=== PATIENT | female | born 1945 | race Caucasian/White ===

== ENCOUNTER 2021-02-02 17:34 | Outpatient (CLI) | payer MEDICARE, SELFPAY | END 2021-02-02 17:35 | disposition home or self-care (01) | LOC: ANHCOVIDVC 17:34 | PROVIDERS: PCP Internal Medicine | DX: Z23 Encounter for immunization (principal) | CPT/HCPCS: 0001A; 91300 ==

== ENCOUNTER 2021-02-23 17:44 | Outpatient (CLI) | payer MEDICARE, SELFPAY | END 2021-02-23 17:45 | disposition home or self-care (01) | LOC: ANHCOVIDVC 17:44 | PROVIDERS: PCP Internal Medicine | DX: Z23 Encounter for immunization (principal) | CPT/HCPCS: 0002A; 91300 ==

== ENCOUNTER 2024-04-15 14:19 | Inpatient (IN) | payer MEDICARE, SELFPAY ==
[2024-04-15] VITALS (14 sets, daily range): BP systolic 123–146; BP diastolic 48–88; PULSE 77–98; RESP 12–24; TEMP 36.6–36.7; O2SAT 94–100; BMI 28.7
--- NOTE | ~2024-04-15 | CT_ITS ---
EXAMINATION: CT brain wo con DATE: 04/15/2024 15:58 INDICATION: Status post fall. Head trauma. TECHNIQUE: Computed tomography (CT) of the head was performed without intravenous contrast. The dose- length product was 681.00 mGy-cm. Automated exposure control and iterative reconstruction technique w ere employed. COMPARISON: No prior studies for comparison. FINDINGS: There is a partially calcified extra-axial frontal lobe mass measuring 3.4 x 2 cm with mi ld mass effect. The mass appears to cross the midline on coronal image 23. Generalized atrophy. There are scattered mild periventricular and subcortical white matter changes, most likely related to smal l vessel ischemic disease (microangiopathy). Basilar cisterns are patent. No ventriculomegaly or midl ine shift. Mild mucosal thickening of the paranasal sinuses. Mastoids are pneumatized. IMPRESSION: 1. No acute intracranial abnormality. 2: Large extra-axial partially calcified mass centered in the left frontal lobe measuring 3.4 x 2 cm . There is extension across the midline to the right anteriorly. Although this is likely benign menin gioma, primary intracranial neoplasm and metastatic disease are not excluded. Recommend correlation w ith MRI of the brain without and with contrast for further assessment. Reviewed, dictated and finalized at location A. IMPRESSION: 1. No acute intracranial abnormality. 2: Large extra-axial partially calcified mass centered in the left frontal lob e measuring 3.4 x 2 cm. There is extension across the midline to the right ante riorly. Although this is likely benign meningioma, primary intracranial neoplas m and metastatic disease are not excluded. Recommend correlation with MRI of th e brain without and with contrast for further assessment.
--- NOTE | ~2024-04-15 | XR_ITS ---
EXAMINATION: XR barium swallow modified DATE: 04/22/2024 10:07 INDICATION: Aspiration. TECHNIQUE: The patient was given barium-containing material of multiple consistencies to swallow by t abiodun speech pathologist while I performed fluoroscopy. Fluoroscopy exposure time was 1.7 minutes. The n umber of fluoroscopy images saved to the PACS was 1. Dose-area product was 0.962 Gy-cm^2. FINDINGS: There is reduced laryngeal elevation, reduced tongue base retraction, pyriform sinus residue, and pha ryngeal wall residue. There is laryngeal penetration and aspiration of pudding. IMPRESSION: 1. Aspiration of pudding. 2. Please refer to the speech therapy report for recommendations. Reviewed, dictated and finalized at location A.
--- NOTE | ~2024-04-15 | XR_ITS ---
XR abdomen gastric tube insert INDICATION: Evaluate NG tube position. TECHNIQUE: Limited KUB perform for evaluating NG tube . COMPARISON: No prior studies for comparison. FINDINGS: NG tube tip in the stomach. Visualized bowel gas pattern is unremarkable. IMPRESSION: 1: NG tube tip in the stomach. Reviewed, dictated and finalized at location B.
--- NOTE | ~2024-04-15 | CT_ITS ---
EXAMINATION: CT cervical spine wo con DATE: 04/15/2024 16:00 INDICATION: Neck pain after fall TECHNIQUE: Computed tomography (CT) of the cervical spine was performed without intravenous contrast. The dose-length product was 316 mGy-cm. Automated exposure control and iterative reconstruction tech [employer] were employed. COMPARISON: None FINDINGS: There is levoscoliosis of the cervical spine. Vertebral body heights are maintained. There is degenerative anterolisthesis at C5-6 and C6-7. Craniovertebral junction is normal. There is multil evel uncinate and facet hypertrophy. There is levoscoliosis. No acute fracture or traumatic malalignm ent. No evidence for perched facet. Craniovertebral junction is normal. Spinous processes are unremar kable. IMPRESSION: 1. No acute abnormality of the cervical spine. 2: Severe cervical spondylosis. Reviewed, dictated and finalized at location A.
--- NOTE | ~2024-04-15 | XR_ITS ---
EXAMINATION: XR barium swallow modified DATE: 04/16/2024 10:43 INDICATION: Witnessed choking. TECHNIQUE: The patient was given barium-containing material of multiple consistencies to swallow by t abiodun speech pathologist while I performed fluoroscopy. Fluoroscopy exposure time was 1.7 minutes. The n umber of fluoroscopy images saved to the PACS was 1. Dose-area product was 0.962 Gy-cm^2. FINDINGS: There is reduced laryngeal elevation, reduced laryngeal adduction, reduced tongue base retraction, an d vallecular residue. There is laryngeal penetration and aspiration of thin liquids and pudding. IMPRESSION: 1. Aspiration of thin liquids and pudding. 2. Please refer to the speech therapy report for recommendations. Reviewed, dictated and finalized at location A.
--- NOTE | ~2024-04-15 | XR_ITS ---
XR hip RT 2V w AP pelvis 04/15/2024 15:45 Indication: Hip pain Procedure: AP pelvis and 2 views right hip Comparison: No prior studies for comparison. Findings: Pelvic rings are intact. Severe osteoarthritis of the hips, right greater than left. Severe lower lumbar spondylosis. Sacral foramen are symmetric. Pelvic rings are intact. Impression: 1: Severe osteoarthritis of the hips. Reviewed, dictated and finalized at location A. Impression: 1: Severe osteoarthritis of the hips.
--- NOTE | ~2024-04-15 | XR_ITS ---
EXAM: XR abdomen gastric tube insert DATE: 04/18/2024 22:49 HISTORY: NG placement . COMPARISON: None available. FINDINGS: NG tube, tip and side port project over the gastric body. Clear lung bases. Normal bowel g as pattern. No organomegaly. No abnormal abdominal calcification. Regional bones and soft tissues nor mal for age. IMPRESSION: NG tube, in good position. Reviewed, dictated and finalized at location K. IMPRESSION: NG tube, in good position.
--- NOTE | ~2024-04-15 | XR_ITS ---
XR shoulder RT min 2V 04/15/2024 15:45 Indication: Right shoulder pain Procedure: 4 views right shoulder Comparison: No prior studies for comparison. Findings: There is polyarticular osteoarthritis. No acute fracture or traumatic malalignment. No evid ence of focal soft tissue abnormality. No foreign bodies. Impression: 1: No acute fracture. Reviewed, dictated and finalized at location A. Impression: 1: No acute fracture.
--- NOTE | ~2024-04-15 | MR_ITS ---
EXAMINATION: MR brain/brain stem wo/w con DATE: 04/18/2024 16:50 INDICATION: Encephalopathy. Brain mass. TECHNIQUE: Magnetic resonance imaging (MRI) of the brain and brainstem was performed without and with 18 mL MultiHance intravenous contrast. COMPARISON: Head CT 04/15/2024 FINDINGS: There is no acute ischemic infarct or intracranial hemorrhage. Anterior to left frontal lob e, there is a 3.8 x 2.6 x 3.3 cm enhancing extra-axial mass, consistent with a meningioma. The mass e xtend 6 mm rightward across the midline anterior to the right frontal lobe. The ventricles are normal in size. There is mild mucosal thickening in the paranasal sinuses. The orbits are normal. There are small bilateral mastoid effusions. IMPRESSION: 1. 3.8 cm meningioma anterior to the frontal lobes. Reviewed, dictated and finalized at location A.
--- NOTE | ~2024-04-15 | XR_ITS ---
EXAMINATION: XR barium swallow modified DATE: 04/18/2024 15:15 INDICATION: Dysphagia. TECHNIQUE: The patient was given barium-containing material of multiple consistencies to swallow by t he speech pathologist while I performed fluoroscopy. Fluoroscopy exposure time was 0.4 minutes. The n umber of fluoroscopy images saved to the PACS was 1. Dose-area product was 0.183 Gy-cm^2. FINDINGS: There is reduced laryngeal elevation, reduced laryngeal adduction, reduced tongue base retraction, re duced pharyngeal squeeze, vallecular residue, and pyriform sinus residue. There is laryngeal penetrat ion and aspiration of thin liquids and pudding. IMPRESSION: 1. Aspiration of thin liquids and pudding. 2. Please refer to the speech therapy report for recommendations. Reviewed, dictated and finalized at location A.
--- NOTE | ~2024-04-15 | CT_ITS ---
EXAMINATION: CT chst ab kim olmos w DATE: 04/15/2024 16:10 INDICATION: Status post fall. Chest and abdomen pain. Pressure sores. TECHNIQUE: Computed tomography (CT) of the chest, abdomen, pelvis, thoracic spine and lumbar spine wa s performed with 100 cc Omnipaque 350 intravenous contrast. The dose-length product was 1397.42 mGy-c m. COMPARISON: None FINDINGS: CHEST: There are multiple hypodense lesions of the thyroid gland, consistent with multinodular goiter . Consider correlation with thyroid ultrasound. No thoracic lymphadenopathy. Heart size normal. No si gnificant pleural or pericardial effusion. There is lingular nodules and atelectasis. Discrete nodule on image 83 measures 8 mm. No endobronchial lesions. No pneumothorax. No significant vascular abnorm ality. Abdomen/pelvis: The liver, spleen, pancreas, adrenal glands are unremarkable. There are multiple low density lesions of the kidneys, most likely benign cysts. Gallbladder is not identified, likely surgi renan absent. The liver, spleen, pancreas, adrenal glands are unremarkable. Nonobstructive bowel gas pattern. There is surgical anastomosis of the distal colon. No obstruction. There is evidence of pelvic relaxation. No significant vascular abnormality. No lymphadenopathy. Thoracic and lumbar spine: Severe osteoarthritis of the hips, right greater than left. There is scoli osis. There is moderate thoracic spondylosis. There is dextroscoliosis of the thoracic spine. There i s grade 1 degenerative spondylolisthesis at L4-5 secondary to facet hypertrophy. There is annular dis c bulging at this level causing bilateral neural foraminal narrowing, left greater than right. IMPRESSION: 1. No acute abnormality of the chest, abdomen or pelvis. 2: Lingular nodule measuring 8 mm. Recommend follow-up low dose CT chest in 3 months or pet/CT examin ation. 3: Multiple thyroid nodules of varying size and density, most likely benign multinodular goiter. Con nutrition services aide ultrasound thyroid on nonemergent basis. 4: Severe osteoarthritis of the hips with moderate-severe degenerative spondylosis of the thoracic an d lumbar spine. Reviewed, dictated and finalized at location A. IMPRESSION: 1. No acute abnormality of the chest, abdomen or pelvis. 2: Lingular nodule measuring 8 mm. Recommend follow-up low dose CT chest in 3 m [facility] or pet/CT examination. 3: Multiple thyroid nodules of varying size and density, most likely benign mu ltinodular goiter. Consider ultrasound thyroid on nonemergent basis. 4: Severe osteoarthritis of the hips with moderate-severe degenerative spondylo sis of the thoracic and lumbar spine.
--- NOTE | 2024-04-15 14:29 | ECG_ITS ---
SEE SCANNED COPY FOR CONFIRMED REPORT MTDD
--- NOTE | 2024-04-15 15:07 | ED.GENADULT ---
HPI - General Adult General Chief complaint: Wound/Laceration Stated complaint: several pressure ulcers Time Seen by Provider: 04/15/24 14:50 History of Present Illness HPI narrative: Patient is a 78-year-old female with history of arthritis, lupus here with confusion after being found down at home. Patient was reportedly found by her night patrol inspector lying on the floor. When EMS entered the home home was covered in feces. Patient believes that she did something to help with a [facility] hospitality event today and believes she only was down on the ground for approximately 2 hours however she is unsure if it may have been more time than that. she notes that she has had extensive issues with her mobility and balance dating back months to years. She believes over the last month she has fallen approximately 1 time per week. She states that her whole body normally hurts due to her arthritis and she is unsure if she has any new pain after her fall today. Related Data Home Medications Medication Instructions Recorded Confirmed albuterol sulfate 90 mcg/actuation inhalation 04/15/24 aerosol inhaler bimatoprost 0.01 % eye drops drp 04/15/24 (Magy) citalopram 20 mg tablet mg 04/15/24 cyclobenzaprine 5 mg tablet mg 04/15/24 folic acid 1 mg tablet 04/15/24 methotrexate sodium 2.5 mg tablet mg 04/15/24 omeprazole 40 mg capsule,delayed mg 04/15/24 release prednisone 5 mg tablet mg 04/15/24 sulfasalazine 500 mg PO 04/15/24 tablet,delayed release tramadol 50 mg tablet mg 04/15/24 Allergies Allergy/AdvReac Type Severity Reaction Status Date / Time Sulfa (Sulfonamide Allergy Unknown Verified 04/15/24 15:23 Antibiotics) Review of Systems Review of Systems: All systems reviewed & are unremarkable except as noted in HPI and below Exam Narrative: GENERAL: Well-appearing, well-nourished, and in no acute distress. HEAD: Normocephalic, atraumatic. EYES: PERRLA and EOMI. ENT: Nares clear. Mucous membranes very Dry. Poor dentition with significant gum recession and the 3 remaining teeth that she has on her upper aspect are loose and nearly falling out of the socket. This appears to be chronic in nature and not due to a dental injury. NECK: Supple. CHEST: Clear to auscultation. No respiratory distress. Diffusely tender anterior chest wall. No obvious bruising, hematoma, skin breakdown. HEART: Regular rate and rhythm. Normal peripheral pulses. ABDOMEN: Soft, Diffusely tender abdominal exam, no rebound or guarding, no obvious signs of injury., nondistended. EXTREMITIES: Diffusely tender thoracic and lumbar spine, no obvious step-offs. Tenderness to the right shoulder, tenderness to the right hip. Normal range of motion. SKIN: Warm, dry, 10x10 cm area of skin breakdown with superficial skin loss and some darkened discoloration consistent with pressure ulcer over the right lateral hip. 7x7 cm area of skin breakdown with overlying blackened discoloration overlying, no active drainage. She has a more superficial area of erythema, pink in color approximately 3x4 cm posterior to the right shoulder. NEURO: No focal deficits. Alert and oriented x3. PSYCH: Normal mood and flat affect. Course Course Emergency Course: Chart review performed, patient here from home after being on the ground for an unknown amount of time. Found by her night patrol inspector. She was reportedly found with feces all over the house, unable to stand, multiple pressure sores on her back and hip. Triage vitals normal. No prior visits in our system. Patient seen evaluated, suspect she likely has rhabdomyolysis, possibly sepsis, dehydration. She clearly is unable to care for herself at home. Will do imaging to evaluate for possible injury as well as infection. Ulcers appear to be grade 2 with some mild surrounding erythema suggestive of cellulitis. No obvious crepitus to suggest necrotizing infection. Groin minimally erythematous with
[2024-04-15 15:14] LABS: Basophils Absolute Auto 0.1 K/mm3 (0.0-0.1); Basophils Percent Auto 0.8 % (0.2-1.2); Eosinophils Absolute Auto 0.4 K/mm3 (0-0.3); Hematocrit 46.4 % (37.0-47.0); Hemoglobin 15.2 g/dL (12.0-15.0); Immature Granulocyte Absolute 0.05 K/mm3 (0.00-0.031); Immature Granulocyte Percent A 0.4 % (0-0.5); Lymphocytes Absolute Auto 2.18 K/mm3 (0.9-3.2); Lymphocytes Percent Auto 18.4 % (18.3-44.2); Mean Corpuscular HGB Conc 32.8 g/dl (32-36); Mean Corpuscular Hemoglobin 29.2 pg (26-34); Mean Corpuscular Volume 89.1 fl (80-100); Mean Platelet Volume 8.8 fl (7.4-10.4); Monocytes Absolute Auto 0.8 K/mm3 (0.1-0.6); Neutrophils Absolute Auto 8.4 K/mm3 (1.3-6.7); Neutrophils Percent Auto 70.4 % (45.5-73.1); Platelet Count Result 466 k/mm3 (150-375); Red Blood Count 5.21 M/mm3 (4.2-5.4); Red Cell Distribution Width 14.9 % (11.5-14.5); White Blood Count 11.9 K/mm3 (4.5-10.0)
[2024-04-15 15:24] LABS: INR 1.4; Prothrombin Time 17.6 Seconds (11.1-14.7)
[2024-04-15 15:26] LABS: Lactic Acid Reflex 2.9 mmol/L (0.7-2.0); Partial Thromboplastin Time 28.2 Seconds (22.3-36.8)
[2024-04-15 15:32] LABS: Alanine Aminotransferase 38 U/L (6-35); Albumin Level 3.5 g/dL (3.5-5.1); Alkaline Phosphatase 122 U/L (38-126); Anion Gap 10 mmol/L (4-12); Aspartate Amino Transferase 53 U/L (14-36); Bilirubin,Total 1.5 mg/dL (0.2-1.3); Blood Urea Nitrogen 19 mg/dL (7-17); Calcium 9.2 mg/dL (8.4-10.2); Carbon Dioxide 34 mmol/L (22-30); Chloride 112 mmol/L (98-107); Estimated CRCL calculation 58 ml/min; Estimated Glomerular Filt Rate > 60; Glucose 128 mg/dL (65-110); Potassium 2.8 mmol/L (3.4-5.0); Sodium 156 mmol/L (137-145)
[2024-04-15 15:39] LABS: Troponin I 0.034 ng/mL (0.000-0.034)
--- NOTE | 2024-04-15 15:42 | PC.NURSE ---
Reported self neglect to Adult Protective Services. Called hotline - . market garden worker will investigate allegations with in 72 hours.
[2024-04-15 15:47] LABS: Magnesium 1.7 mg/dL (1.6-2.3)
[2024-04-15] MEDS: Please add drug allergy info to patient profile. 1 EACH XX (15:50)
[2024-04-15 16:00] LABS: Appearance Urine Cloudy (Clear); Bacteria Urine 1+ /hpf; Bilirubin Urine 3+ (Negative); Blood Urine Negative (Negative); Color Urine Dark Yellow (Yellow); Glucose Urine UA Negative (Negative); Ketones Urine Trace mg/dL (Negative); Leukocyte Esterase Ur 1+ LEU/UL (Negative); Need Manual Microscopic Reviewed; Nitrate Urine Positive (Negative); Protein Urine Trace mg/dL (Negative); Specific Grav Ur 1.024 (1.001-1.035); Squamous Epithelial Cell Urine Moderate /hpf (Few)
[2024-04-15 16:01] LABS: Add Urine Microscopic? YES
[2024-04-15] MEDS: LACTATED RINGERS 1,000 ML 999 ML IV CONT (16:16)
[2024-04-15 16:17] LABS: Ethanol < 10 mg/dL (<10)
[2024-04-15] MEDS: ONDANSETRON INJ 4 MG/2 ML VIAL IV PUSH (16:17)
[2024-04-15] MEDS: MORPHINE SULFATE (*CRX) 4 MG/ML INJ IV PUSH (16:19)
[2024-04-15] MEDS: metroNIDAZOLE 500 MG/ISO 100ML 500 MG/100 ML BAG 100 MG IVPB (16:26)
[2024-04-15 16:27] LABS: Amphetamine Screen Urine Negative (Negative); Barbiturate Screen Urine Negative (Negative); Benzodiazepines Screen Urine Negative (Negative); Cannabinoid Screen Urine Negative (Negative); Cocaine Screen Urine Negative (Negative); Methadone Screen Urine Negative (Negative); Opiate Screen Urine Negative (Negative); Phencyclidine Screen Urine Negative (Negative)
[2024-04-15] MEDS: TETANUS,DIPHTHERIA,AC PERTUSSIS ADULT (0.5 ML) BOOSTRIX IM (16:29)
[2024-04-15] MEDS: CEFEPIME 2 GM/NS 50 ML 2 GM/50 ML BAG IVPB (16:32)
[2024-04-15 16:36] LABS: Influenza A QL RT-PCR Negative (Negative); Influenza B QL RT-PCR Negative (Negative); RSV RNA, RT-PCR Negative (Negative); SARS-CoV-2 RNA PCR Negative (Negative)
[2024-04-15 16:42] LABS: Creatine Kinase 225 U/L (30-135)
[2024-04-15 16:59] LABS: CRP 11.8 mg/dL (<1.0)
[2024-04-15] MEDS: VANCOMYCIN 1,250 MG/NS 250 ML 1,250 MG/250 ML BAG 166.67 MG IVPB (17:19)
[2024-04-15 18:11] LABS: Reflex Lactic Acid Yes or No Add Lactic
[2024-04-15 18:37] LABS: Lactic Acid 1.8 mmol/L (0.7-2.0)
[2024-04-15] MEDS: SODIUM CHLORIDE 0.9% IV 1,000 ML 225 ML IV CONT (18:47)
[2024-04-15] MEDS: POTASSIUM CHLORIDE INJ 40 MEQ in SODIUM CHLORIDE 0.9% IV 500 ML 130 MEQ IVPB (18:48)
[2024-04-15] MEDS: VANCOMYCIN 1,000 MG/NS 250 ML 1,000 MG/250 ML BAG 250 MG IVPB (18:52)
--- NOTE | 2024-04-15 19:12 | PC.NURSE ---
Bedside report given to Blair RN, all questions answered
--- NOTE | 2024-04-15 20:55 | PM.IMHP ---
H&P: HPI History of Present Illness Date/Time: 04/15/24 20:55 Chief Complaint: Found down Narrative: Source of information is ER physician report, EMS run report, nursing report and the patient who is a poor historian. There are no prior records available for review. 78-year-old female with a past medical history of rheumatoid arthritis on chronic steroids, lupus, depression, COPD and diabetes who presented to the ER after being found down for an unknown amount of time. The patient initially stated she had only been down on the floor for 2 hours. However the patient's grandson is any [place] and is friends with the EMT stat got called out to the patient's home. They reported that the patient wounds her somewhat adherent to the underlying carpet. The patient's home that is usually clean in order leave had multiple areas of the patient's josé luis, couch, blankets covered in stool. The house at the strong smell of ammonia P The patient had been found by her central processing tech. He had reported that he had found the patient similar circumstances multiple times before. The patient was oriented to person place and time but was demonstrating confusion and disorientation in talking about irrelevant topics during conversation. The landscapers head provided the patient with some answers to orientation questions should before EMS arrival. The patient initially tried is poor but was making no effort to get off the floor and EMS would try to discuss the importance of going to the hospital patient would redirect conversation to unrelated matters. Patient was subsequently brought to the ER where she was noted have multiple open decubitus ulcers in multiple stages some of which appears is if they could be infected. The patient again reported to me that she thinks she has only been on the floor couple of hours. She cannot explain how her house cotton she the condition that is in. She did state she me that she has diabetes and was recently started on metformin. She states she has not felt well and she assumed that may due to hypoglycemia. It is unclear if he has been performing Accu-Cheks. She reports that she has been having multiple episodes of syncope. She cannot give me any information regarding preceding symptoms or frequency or recurrence of syncopal events. She does not know how she ended up on the floor this time. She states that she hurts all over but she does not feel that this is a usual amount of pain for given her history of rheumatoid arthritis and lupus. According to the ER physician's report... The patient's family members state that it is not unusual for the patient to confabulate and had details to stories. The grandson stated that this is been the patient's baseline behavior since he was a child. The patient states that she has had intermittent diarrhea on and off for whole life. She denies any unusual frequency of stools recently. She reports several weeks of decreased appetite. In the ER CT of the head was performed which demonstrated large meningioma. The ER provider discussed the findings with the neurosurgeon at [place]. The neurosurgeon reviewed the patient's imaging and felt that this was not an acute finding and was not the cause for the patient's encephalopathy and clinical presentation. He felt with the lack of vasogenic edema that this was a chronic finding. The patient denies any headache or vision changes additional imaging demonstrated severe cervical spondylosis without evidence of acute fracture. Severe arthritis of bilateral hips. And CT of the chest abdomen pelvis with contrast demonstrated no acute abnormalities. Lingular lobe nodule measuring 8 mm. Multiple thyroid nodules of varying sizes and densities most likely multinodular goiter with normal TSH and dartos of the hips and moderate to severe degenerative spondylolysis of the thoracic and lumbar spine. White count was 11.1 hemoglobin elevated 15.2, venous blood gas with a mildly elevated
[2024-04-15 21:38] LABS: Fractional Inspired Oxygen 24 %; HCO3 VBG 27.8 mEq/l (24.0-30.0); PCO2 VBG 48.9 mmHg (42.0-48.0); PO2 VBG 67.4 mmHg (35.0-45.0); pH VBG 7.372 (7.300-7.400)
[2024-04-15 21:39] LABS: Device NASAL CANNULA
[2024-04-15] MEDS: MAGNESIUM SULF 2 GM/WATER 50ML 2 GM/50 ML BAG IVPB (21:57)
[2024-04-15 22:18] LABS: Free T4 Free Thyroxine Reflex 1.42 ng/dL (0.78-2.19)
[2024-04-15 23:00] LABS: Total Triiodothyronine (T3) 1.23 NG/ML (0.97-1.69)
[2024-04-15 23:16] LABS: Anion Gap 9 mmol/L (4-12); Blood Urea Nitrogen 19 mg/dL (7-17); Calcium 8.5 mg/dL (8.4-10.2); Carbon Dioxide 29 mmol/L (22-30); Chloride 116 mmol/L (98-107); Estimated CRCL calculation 52 ml/min; Estimated Glomerular Filt Rate > 60; Glucose 124 mg/dL (65-110); Potassium 3.2 mmol/L (3.4-5.0); Sodium 154 mmol/L (137-145)
[2024-04-16] VITALS (21 sets, daily range): BP systolic 101–147; BP diastolic 48–64; PULSE 73–96; RESP 14–24; TEMP 35.9–36.6; O2SAT 96–100
[2024-04-16] MEDS: LACTATED RINGERS 1,000 ML 125 ML IV CONT ×3 (00:26→14:23)
--- NOTE | 2024-04-16 00:28 | ECG_ITS ---
SEE SCANNED COPY FOR CONFIRMED REPORT MTDD
[2024-04-16 01:25] LABS: Basophils Absolute Auto 0.1 K/mm3 (0.0-0.1); Basophils Percent Auto 0.8 % (0.2-1.2); Eosinophils Absolute Auto 0.5 K/mm3 (0-0.3); Eosinophils Percent Auto 3.3 % (0-4.4); Hematocrit 45.5 % (37.0-47.0); Hemoglobin 14.2 g/dL (12.0-15.0); Immature Granulocyte Absolute 0.07 K/mm3 (0.00-0.031); Immature Granulocyte Percent A 0.5 % (0-0.5); Lymphocytes Absolute Auto 2.86 K/mm3 (0.9-3.2); Lymphocytes Percent Auto 19.5 % (18.3-44.2); Mean Corpuscular HGB Conc 31.2 g/dl (32-36); Mean Corpuscular Hemoglobin 28.7 pg (26-34); Mean Corpuscular Volume 91.9 fl (80-100); Mean Platelet Volume 8.9 fl (7.4-10.4); Monocytes Absolute Auto 1.2 K/mm3 (0.1-0.6); Monocytes Percent Auto 8.3 % (2.6-8.5); Neutrophils Absolute Auto 9.9 K/mm3 (1.3-6.7); Neutrophils Percent Auto 67.6 % (45.5-73.1); Platelet Count Result 416 k/mm3 (150-375); Red Blood Count 4.95 M/mm3 (4.2-5.4); Red Cell Distribution Width 15.2 % (11.5-14.5); White Blood Count 14.6 K/mm3 (4.5-10.0)
[2024-04-16 01:48] LABS: Troponin I 0.034 ng/mL (0.000-0.034)
[2024-04-16 02:06] LABS: Procalcitonin 0.1 ng/mL
[2024-04-16] MEDS: POTASSIUM CHLORIDE INJ 40 MEQ in SODIUM CHLORIDE 0.9% IV 500 ML 130 MEQ IVPB (02:08)
[2024-04-16] MEDS: CEFEPIME 1 GM/NS 50 ML 1 GM/50 ML BAG IVPB ×2 (03:28→16:30)
--- NOTE | 2024-04-16 06:37 | PCRCNOTE ---
ABG was obtained, however there was an error running sample. RT was going to attempt to obtain more,however, it was decided it was not needed and to discontinue the order by nurse and doctor at this time.
[2024-04-16] MEDS: WATER FOR IRRIGATION, STERILE 1,000 ML BOTTLE 1000 ML (06:53)
--- NOTE | 2024-04-16 07:38 | ADMGEN ---
This patient, Jayshree Holder, was admitted to IMU Room 207-01 on 04/15/24 at 2221. Patient/family oriented to hospital policies and general routines including ID bracelet, bed and alarms, visiting hours, pain management, procedures, bathroom and other care routines, personal items, smoking policy, room service/diet, and visiting hours. Information on how to activate the Rapid Response Team has been discussed. Patient/Family are encouraged to report perceived risks to care and to ask questions if they do not understand what they are told or what they should do.
[2024-04-16 07:58] LABS: Alanine Aminotransferase 32 U/L (6-35); Alkaline Phosphatase 116 U/L (38-126); Anion Gap 4 mmol/L (4-12); Aspartate Amino Transferase 53 U/L (14-36); Bilirubin,Total 1.4 mg/dL (0.2-1.3); Blood Urea Nitrogen 19 mg/dL (7-17); Calcium 8.2 mg/dL (8.4-10.2); Carbon Dioxide 28 mmol/L (22-30); Chloride 120 mmol/L (98-107); Creatine Kinase 143 U/L (30-135); Estimated CRCL calculation 58 ml/min; Estimated Glomerular Filt Rate > 60; Glucose 111 mg/dL (65-110); Potassium 4.2 mmol/L (3.4-5.0); Sodium 152 mmol/L (137-145)
[2024-04-16] MEDS: HEPARIN SODIUM 5,000 UNITS/ML VIAL 5000 UNITS SUB-Q ×2 (08:36→20:10)
[2024-04-16 09:03] LABS: Glucose Point of Care 106 mg/dl (65-105)
[2024-04-16] MEDS: FOLIC ACID 1 MG TABLET PO (09:54)
[2024-04-16] MEDS: predniSONE 5 MG TABLET PO ×2 (09:54→16:30)
[2024-04-16] MEDS: PANTOPRAZOLE 40 MG TABLET PO (09:54)
[2024-04-16 11:47] LABS: Glucose Point of Care 125 mg/dl (65-105)
--- NOTE | 2024-04-16 12:08 | PCSTNOTE ---
Please refer to the Modified Barium Swallow Evaluation in the EMR.
--- NOTE | 2024-04-16 12:56 | PM.IMPN ---
Progress Note: A&P Assessment and Plan (1) Acute hypoxic respiratory failure: Code(s): J96.01 - Acute respiratory failure with hypoxia Status: Acute Assessment and Plan: Patient noted to be hypoxic overnight. Hypoxia was difficult to control and ultimately she needed BiPAP. VBG showed 7.37/49/67 on [address] showed no acute abnormalities. There was 8 mm lingular nodule and will need follow-up in 3 months. Wean off BiPAP as tolerated. (2) Encephalopathy acute: Code(s): G93.40 - Encephalopathy, unspecified Status: Acute Assessment and Plan: Patient has confusion which could be chronic or from acute encephalopathy. Spoke with grandson but he has been sparsely interact with the patient over the past few years. The grandson's went to the house today and it appears the patient had been lying on the ground for a while and that someone has been coming into to provide her food and other assistance. There was food at the house. Unclear if patient has been taking her medications. No hx of dementia in the patient. So overall, unclear baseline. CT the brain showed no acute findings but did show possible chronic meningioma. TSH normal. Urine drug screen negative. Possible UTI. Consider chronic related to dementia or acute from encephalopathy from dehydration, UTI, CVA, brain mass and/or lupus cerebritis or acute on chronic. MRI brain ordered. ST consulted and patient at risk for aspiration. Will monitor mental status closely try to avoid sedating medications if possible. Start TF via NGT. Grandson in agreement. Repeat MBS in a few days Check B12, folate (3) Ground-level fall: Code(s): W18.30XA - Fall on same level, unspecified, initial encounter Status: Acute Assessment and Plan: Patient has fall of indeterminate duration with mild elevation in CK but not concerning fo rhabdomyolysis. TCK 225 -> 143. Fall precautions. PT/OT (4) Pressure ulcer: Qualifiers: Laterality: right Pressure injury location: buttock Pressure injury stage: unstageable Qualified Code(s): L89.310 - Pressure ulcer of right buttock, unstageable Code(s): L89.90 - Pressure ulcer of unspecified site, unspecified stage Status: Acute Assessment and Plan: Patient has multiple wounds noted related to her being down for a prolonged period. auto body shop manager to evaluate Continue routine wound care (5) Meningioma: Code(s): D32.9 - Benign neoplasm of meninges, unspecified Status: Acute Assessment and Plan: Head CT shows a large extra-axial partially calcified mass centered in the left frontal lobe with extension across the midline. Probably a benign meningioma. MRI of the brain has been ordered further delineate. (6) Acute hypernatremia: Code(s): E87.0 - Hyperosmolality and hypernatremia Status: Acute Assessment and Plan: Sodium 156 on admission. [place] related to dehydration. TSH normal. Patient started on IV fluids and sodium has trended downward. Continue rehydration. Add free water flushes to tube feedings. (7) Acute hypokalemia: Code(s): E87.6 - Hypokalemia Status: Acute Assessment and Plan: Potassium is low 2.8. This has been replaced. Continue to monitor and replace as needed. (8) UTI (urinary tract infection): Code(s): N39.0 - Urinary tract infection, site not specified Status: Acute Assessment and Plan: UA is consistent with UTI. UCx collected. Procalcitonin is 0.1. CRP 12. White count up to 14 K. Lactic acid 2.9 but repeat was normal. Antibiotics started. UCx pending. Follow up on UCx results. Follow-up on blood cultures (9) QT prolongation: Code(s): R94.31 - Abnormal electrocardiogram [ECG] [EKG] Status: Acute Assessment and Plan: EKG showing sinus rhythm with PACs, moderate ST depression and prolonged QT interval (QTc 526). Repeat EKG anjelica
--- NOTE | 2024-04-16 14:16 | PCDIET ---
Pt started on tube feedings. Jevity 1.2 with a goal rate of 60ml/hr to provide 1584kcals, 73g protein per day over 22 hrs. This is sufficient to meet estimated needs. Agree with orders. Recommend to add TRINO BID for wound healing.
[2024-04-16] MEDS: VANCOMYCIN 1,250 MG/NS 250 ML 1,250 MG/250 ML BAG 166.67 MG IVPB (16:30)
[2024-04-16 18:39] LABS: Glucose Point of Care 113 mg/dl (65-105)
[2024-04-16] MEDS: PANTOPRAZOLE SODIUM IV 40 MG VIAL IV PUSH (20:10)
--- NOTE | 2024-04-16 20:23 | PC.NURSE ---
While assessing patient RN inquired about how patient ended up on the floor. Patient reports that she had been feeling weaker and ill lately. Upon further inquires patient reported that her neighbor Uncle Long had been taking care of her since Monday. Patient states her neighbor would bring fruit and ice water and check on her every couple of hours. Patient said that her neighbors grand daughter told on her and called EMS. Patient was AOx4 during this discussion.
[2024-04-16 20:40] LABS: Glucose Point of Care 143 mg/dl (65-105)
[2024-04-17] VITALS (19 sets, daily range): BP systolic 122–148; BP diastolic 43–65; PULSE 72–103; RESP 13–26; TEMP 36.1–37.1; O2SAT 93–100
[2024-04-17 00:16] LABS: Glucose Point of Care 132 mg/dl (65-105)
[2024-04-17 04:29] LABS: Basophils Absolute Auto 0.1 K/mm3 (0.0-0.1); Basophils Percent Auto 0.8 % (0.2-1.2); Eosinophils Absolute Auto 0.3 K/mm3 (0-0.3); Eosinophils Percent Auto 2.9 % (0-4.4); Hemoglobin 11.5 g/dL (12.0-15.0); Immature Granulocyte Absolute 0.04 K/mm3 (0.00-0.031); Immature Granulocyte Percent A 0.5 % (0-0.5); Lymphocytes Absolute Auto 1.86 K/mm3 (0.9-3.2); Lymphocytes Percent Auto 21.1 % (18.3-44.2); Mean Corpuscular HGB Conc 31.1 g/dl (32-36); Mean Corpuscular Volume 93.4 fl (80-100); Mean Platelet Volume 8.8 fl (7.4-10.4); Monocytes Absolute Auto 0.7 K/mm3 (0.1-0.6); Monocytes Percent Auto 7.7 % (2.6-8.5); Neutrophils Absolute Auto 5.9 K/mm3 (1.3-6.7); Platelet Count Result 284 k/mm3 (150-375); Red Blood Count 3.96 M/mm3 (4.2-5.4); Red Cell Distribution Width 15.5 % (11.5-14.5); White Blood Count 8.8 K/mm3 (4.5-10.0)
[2024-04-17 04:43] LABS: Alanine Aminotransferase 28 U/L (6-35); Albumin Level 2.7 g/dL (3.5-5.1); Alkaline Phosphatase 118 U/L (38-126); Anion Gap 4 mmol/L (4-12); Aspartate Amino Transferase 40 U/L (14-36); Blood Urea Nitrogen 18 mg/dL (7-17); Calcium 8.5 mg/dL (8.4-10.2); Carbon Dioxide 31 mmol/L (22-30); Chloride 120 mmol/L (98-107); Estimated CRCL calculation 52 ml/min; Estimated Glomerular Filt Rate > 60; Glucose 152 mg/dL (65-110); Magnesium 2.1 mg/dL (1.6-2.3); Phosphorus 2.4 mg/dL (2.5-4.5); Potassium 4.1 mmol/L (3.4-5.0); Sodium 155 mmol/L (137-145)
[2024-04-17 05:01] LABS: Vitamin D 25 Hydroxy 28.1 ng/mL
[2024-04-17] MEDS: CEFEPIME 1 GM/NS 50 ML 1 GM/50 ML BAG IVPB (05:24)
[2024-04-17 05:48] LABS: Folic Acid > 20.0 ng/mL (2.76->20); Vitamin B12 > 1000.0 pg/mL (239-931)
[2024-04-17 05:49] LABS: Glucose Point of Care 148 mg/dl (65-105)
[2024-04-17] MEDS: PANTOPRAZOLE SODIUM IV 40 MG VIAL IV PUSH ×2 (08:37→21:14)
[2024-04-17] MEDS: FOLIC ACID 1 MG TABLET PO (08:37)
[2024-04-17] MEDS: HEPARIN SODIUM 5,000 UNITS/ML VIAL 5000 UNITS SUB-Q ×2 (08:37→21:14)
[2024-04-17] MEDS: predniSONE 5 MG TABLET PO ×2 (08:37→16:06)
[2024-04-17] MEDS: METHOTREXATE 2.5 MG TAB (*CHEMO) 10 MG PO ×2 (08:43→21:14)
--- NOTE | 2024-04-17 09:09 | PM.IMPN ---
Progress Note: A&P Assessment and Plan (1) Acute hypoxic respiratory failure: Code(s): J96.01 - Acute respiratory failure with hypoxia Status: Acute Assessment and Plan: Quad viral screen negative on admission. CT chest showed no acute abnormalities. Revealed lingular nodule 8 mm and most likely benign multinodular goiter both to be followed up outpatient. on 04/16 nighttime patient noted to be hypoxic and required BiPAP. VBG showed 7.37/49/67 on 1 L (specimen not fully resulted per respiratory therapist. This is not been entered into the system. Unsure the reliability of this.) 04/17 she is now on 2L, breathing well. ctm. Continue to wean as tolerated. (2) Encephalopathy acute: Code(s): G93.40 - Encephalopathy, unspecified Status: Acute Assessment and Plan: Grandson reportedly interacts with the patient intermittently over the past few years. He has reported she does confabulate at times. Suspect there is some chronicity to her encephalopathy/neurocognitive disorder. CT head on admission demonstrating extra-axial mass partially calcified mass and left frontal lobe measuring 3.4 x 2 cm. Frontotemporal dementia? Dr. West assumed care on 04/17 and on first visit the patient makes lorrie earl leija noises at him. She also confabulates and has flight of speech. Per notes, ER provide discussed CT of the head findings with Neurosurgery at [place]. They felt it was not acute and was not the cause for the patient's encephalopathy. They felt with lack of vasogenic edema that it was a chronic finding. Patient does not have headache or vision changes. TSH normal. Urine drug screen negative. B12 and folate levels high. Pending ammonia, salicylates, acetaminophen level, HIV, RPR. SSRI withdrawal? Lupus cerebritis? Iatrogenic effect of prednisone? Less likely Acute etiology could include UTI/bacteremia. So far bottle blood culture growing Gram-negative bacilli. Continue cefepime and vancomycin. The patient also presents with hypernatremia can cause encephalopathy On modified barium swallow the patient was aspirating. NG-tube placed on 04/16. Continue tube feeds with free water flushes per Nephrology. Repeat MBS tomorrow. Per medication rec she takes cyclobenzaprine and tramadol home for arthritis. Hold these. If the patient becomes unmanageable then physical restraints are 1st indicated. Pharmacological restraints will only obstruct her mental evaluation. (3) Ground-level fall: Code(s): W18.30XA - Fall on same level, unspecified, initial encounter Status: Acute Assessment and Plan: Patient has fall of indeterminate duration with mild elevation in CK but not concerning fo rhabdomyolysis. TCK 225 -> 143. Fall precautions. PT/OT (4) Pressure ulcer: Qualifiers: Laterality: right Pressure injury location: buttock Pressure injury stage: unstageable Qualified Code(s): L89.310 - Pressure ulcer of right buttock, unstageable Code(s): L89.90 - Pressure ulcer of unspecified site, unspecified stage Status: Acute Assessment and Plan: Patient has multiple wounds noted related to her being down for a prolonged period. diagrammer and seamer to evaluate Continue routine wound care (5) Meningioma: Code(s): D32.9 - Benign neoplasm of meninges, unspecified Status: Acute Assessment and Plan: Head CT shows a large extra-axial partially calcified mass centered in the left frontal lobe with extension across the midline. Probably a benign meningioma. MRI of the brain has been ordered further delineate. (6) Acute hypernatremia: Code(s): E87.0 - Hyperosmolality and hypernatremia Status: Acute Assessment and Plan: 156, 154, 152, 155 Refractory hypernatremia in spite of free water flushes. She did receive isotonic fluids earlier in the admission. Hypokalemia was corrected which can cause hypernatremia. She still appear
[2024-04-17 09:44] LABS: Acetaminophen < 10 ug/mL (10-30); Ammonia < 9 umol/L (9-30); Salicylate < 1.0 mg/dL (2-20)
[2024-04-17 09:47] LABS: HIV 1/2 Ab P24 Ag Result Negative (Negative)
[2024-04-17] MEDS: DEXTROSE 5% 1,000 ML 1,000 ML 75 ML IV CONT (11:30)
--- NOTE | 2024-04-17 12:10 | PM.CNNEP ---
Assessment and Plan Assessment and plan (1) Hypernatremia: Code(s): E87.0 - Hyperosmolality and hypernatremia Status: Acute Assessment and Plan: acute versus chronic versus acute on chronic? no real improvement with interventions to date suspect related to volume depletion and associated free water deficit check urine studies increase free water flushes and add D5W IVFs recheck chemistry later today follow trend of sodium levels (2) Hypokalemia: Code(s): E87.6 - Hypokalemia Status: Acute Assessment and Plan: resolving likely related to poor nutrition follow trene (3) Altered mental status: Code(s): R41.82 - Altered mental status, unspecified Status: Acute Assessment and Plan: admission history suggest some chronic component evaluation to date noted: CT of head with large extra-axial calcified mass in left frontal lobe TSH, UDS and B12/folate levels okay possibly related to infection (possible UTI + bacteremia) possibly related to hypernatremia follow trend of mentation (4) Ground-level fall: Code(s): W18.30XA - Fall on same level, unspecified, initial encounter Status: Acute Assessment and Plan: circumstance not clear fall precautions PT/OT as tolerated (5) UTI (urinary tract infection): Code(s): N39.0 - Urinary tract infection, site not specified Status: Acute Assessment and Plan: admission UA highly suggestive follow culture data 1/2 bottles with Enteroccocus follow repeat blood cultures on antibiotics (6) Diabetes mellitus: Code(s): E11.9 - Type 2 diabetes mellitus without complications Status: Chronic Assessment and Plan: follow accu-cheks glycemic control per hospitalists I will continue follow the patient with you while she remains hospitalized and make further recommendations as deemed necessary. Thank you for allowing me to participate in care this patient. History of Present Illness Reason for Consult Consult date: 04/17/24 Reason for consult: hypernatremia Chief Complaint Chief complaint: Hypernatremia, Encephalopathy, Pressure ulscers, U History of Present Illness Narrative: Most of the information that I have obtained is from review of the electronic medical record as well as discussion with the physician / nurses involved in the patient's care as is difficult to get a full and complete history from the patient as she is a very poor historian. The patient is a 78-year-old female with a past medical history as outlined below who presented to [facility] Emergency Room after being found on the ground for undisclosed period of time. Initially, it was thought the patient was only on the ground for about 2 hours but is difficult to know for sure if this is accurate. Went EMS arrived to the patient's home, it was noted that she had significant wounds and some of these wounds were adherent to the carpet arguing that she had been on the ground for longer than just 2 hours. On further inspection, there are multiple areas on the floor couch, and blanket that were covered with stool and there was a strong smell of ammonia present as well. Following EMS arrival, she was transported to the emergency room for further assessment. Upon further review of records and EMS/ER documentation, the patient has a history of apparently confabulating when he comes to details of issues and events that have occurred recently. Per EMS report, despite multiple attempts to get the patient to stand up so they could further evaluate her, she would redirect questions and her answers to unrelated topics. Furthermore, she could not explain the condition of her house with regard to the uncleanliness and disheveled appearance. Furthermore, it was noted that she had multiple wounds on her body in various stages of healing but is unclear how long these wounds have been pr
--- NOTE | 2024-04-17 12:10 | P.CONNP_ITS ---
Assessment and Plan Assessment and plan (1) Hypernatremia: Code(s): E87.0 - Hyperosmolality and hypernatremia Status: Acute Assessment and Plan: * acute versus chronic versus acute on chronic? * no real improvement with interventions to date * suspect related to volume depletion and associated free water deficit * check urine studies * increase free water flushes and add D5W IVFs * recheck chemistry later today * follow trend of sodium levels (2) Hypokalemia: Code(s): E87.6 - Hypokalemia Status: Acute Assessment and Plan: * resolving * likely related to poor nutrition * follow trene (3) Altered mental status: Code(s): R41.82 - Altered mental status, unspecified Status: Acute Assessment and Plan: * admission history suggest some chronic component * evaluation to date noted: * CT of head with large extra-axial calcified mass in left frontal lobe * TSH, UDS and B12/folate levels okay * possibly related to infection (possible UTI + bacteremia) * possibly related to hypernatremia * follow trend of mentation (4) Ground-level fall: Code(s): W18.30XA - Fall on same level, unspecified, initial encounter Status: Acute Assessment and Plan: * circumstance not clear * fall precautions * PT/OT as tolerated (5) UTI (urinary tract infection): Code(s): N39.0 - Urinary tract infection, site not specified Status: Acute Assessment and Plan: * admission UA highly suggestive * follow culture data * 1/2 bottles with Enteroccocus * follow repeat blood cultures * on antibiotics (6) Diabetes mellitus: Code(s): E11.9 - Type 2 diabetes mellitus without complications Status: Chronic Assessment and Plan: * follow accu-cheks * glycemic control per hospitalists I will continue follow the patient with you while she remains hospitalized and make further recommendations as deemed necessary. Thank you for allowing me to participate in care this patient. History of Present Illness Reason for Consult Consult date: 04/17/24 Reason for consult: hypernatremia Chief Complaint Chief complaint: Hypernatremia, Encephalopathy, Pressure ulscers, U History of Present Illness Narrative: Most of the information that I have obtained is from review of the electronic medical record as well as discussion with the physician / nurses involved in the patient's care as is difficult to get a full and complete history from the patient as she is a very poor historian. The patient is a 78-year-old female with a past medical history as outlined below who presented to [facility] Emergency Room after being found on the ground for undisclosed period of time. Initially, it was thought the patient was only on the ground for about 2 hours but is difficult to know for sure if this is accurate. Went EMS arrived to the patient's home, it was noted that she had significant wounds and some of these wounds were adherent to the carpet arguing that she had been on the ground for longer than just 2 hours. On further inspection, there are multiple areas on the floor couch, and blanket that were covered with stool and there was a strong smell of ammonia present as well. Following EMS arrival, she was transported to the emergency room for further assessment. Upon further review of records and EMS/ER documentation, the patient has a history of apparently confabulating when he comes to details of issues and events that have occurred recently. Per EMS report, despit
[2024-04-17 12:29] LABS: Glucose Point of Care 208 mg/dl (65-105)
[2024-04-17] MEDS: INSULIN ASPART (*BKC) 100 UNITS/ML SUB-Q ×2 (13:01→16:19)
[2024-04-17] MEDS: CEFEPIME 2 GM/NS 50 ML 2 GM/50 ML BAG IVPB ×2 (14:42→21:27)
[2024-04-17 14:53] LABS: Rapid Plasma Reagin Non-Reactive (NonReactive)
[2024-04-17 17:17] LABS: Glucose Point of Care 226 mg/dl (65-105)
[2024-04-17 18:29] LABS: Albumin Level 2.7 g/dL (3.5-5.1); Alkaline Phosphatase 112 U/L (38-126); Anion Gap 8 mmol/L (4-12); Aspartate Amino Transferase 39 U/L (14-36); Bilirubin,Total 0.9 mg/dL (0.2-1.3); Blood Urea Nitrogen 19 mg/dL (7-17); Calcium 8.5 mg/dL (8.4-10.2); Carbon Dioxide 27 mmol/L (22-30); Chloride 116 mmol/L (98-107); Estimated CRCL calculation 59 ml/min; Estimated Glomerular Filt Rate > 60; Glucose 214 mg/dL (65-110); Potassium 3.2 mmol/L (3.4-5.0); Sodium 151 mmol/L (137-145)
[2024-04-17 18:39] LABS: Alanine Aminotransferase 29 U/L (6-35)
[2024-04-17] MEDS: POTASSIUM CHLORIDE 20 MEQ PACKET (FOR LIQUID) 40 MEQ FEED TUBE (21:13)
[2024-04-18] VITALS (14 sets, daily range): BP systolic 98–159; BP diastolic 51–60; PULSE 71–85; RESP 16–22; TEMP 36.1–37.2; O2SAT 95–100
[2024-04-18 00:04] LABS: Glucose Point of Care 218 mg/dl (65-105)
[2024-04-18] MEDS: DEXTROSE 5% 1,000 ML 1,000 ML 75 ML IV CONT (00:09)
[2024-04-18] MEDS: INSULIN ASPART (*BKC) 100 UNITS/ML SUB-Q ×3 (00:10→12:53)
--- NOTE | 2024-04-18 05:00 | ECG_ITS ---
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 Measurements Intervals [place] Rate: 82 P: 68 [place]: 208 QRS: -14 QRSD: 84 T: -76 QT: 400 QTc: 468 Interpretive Statements SINUS RHYTHM LOW QRS VOLTAGE IN PRECORDIAL LEADS POSSIBLE ANTERIOR MYOCARDIAL INFARCTION, AGE INDETERMINATE BORDERLINE ST-T WAVE ABNORMALITY- DIFFUSE LEADS BASELINE ARTIFACT- V3-V6 ABNORMAL ECG No previous ECG available for comparison Electronically Signed On 04-18-2024 11:18:22 CDT by Sunday Wen D.O.
[2024-04-18 05:06] LABS: Basophils Absolute Auto 0.1 K/mm3 (0.0-0.1); Basophils Percent Auto 0.8 % (0.2-1.2); Eosinophils Absolute Auto 0.3 K/mm3 (0-0.3); Eosinophils Percent Auto 3.4 % (0-4.4); Hematocrit 33.7 % (37.0-47.0); Hemoglobin 10.5 g/dL (12.0-15.0); Immature Granulocyte Absolute 0.06 K/mm3 (0.00-0.031); Immature Granulocyte Percent A 0.8 % (0-0.5); Lymphocytes Absolute Auto 1.96 K/mm3 (0.9-3.2); Lymphocytes Percent Auto 24.8 % (18.3-44.2); Mean Corpuscular HGB Conc 31.2 g/dl (32-36); Mean Corpuscular Volume 93.1 fl (80-100); Mean Platelet Volume 9.4 fl (7.4-10.4); Monocytes Absolute Auto 0.7 K/mm3 (0.1-0.6); Monocytes Percent Auto 8.7 % (2.6-8.5); Neutrophils Absolute Auto 4.9 K/mm3 (1.3-6.7); Neutrophils Percent Auto 61.5 % (45.5-73.1); Platelet Count Result 243 k/mm3 (150-375); Red Blood Count 3.62 M/mm3 (4.2-5.4); Red Cell Distribution Width 15.4 % (11.5-14.5); White Blood Count 7.9 K/mm3 (4.5-10.0)
[2024-04-18 05:07] LABS: Albumin Level 2.6 g/dL (3.5-5.1); Alkaline Phosphatase 110 U/L (38-126); Anion Gap 5 mmol/L (4-12); Aspartate Amino Transferase 40 U/L (14-36); Bilirubin,Total 0.8 mg/dL (0.2-1.3); Blood Urea Nitrogen 17 mg/dL (7-17); Calcium 8.5 mg/dL (8.4-10.2); Carbon Dioxide 27 mmol/L (22-30); Chloride 117 mmol/L (98-107); Estimated CRCL calculation 53 ml/min; Estimated Glomerular Filt Rate > 60; Glucose 223 mg/dL (65-110); Magnesium 1.9 mg/dL (1.6-2.3); Potassium 3.5 mmol/L (3.4-5.0); Sodium 149 mmol/L (137-145)
[2024-04-18 05:13] LABS: Alanine Aminotransferase 27 U/L (6-35)
--- NOTE | 2024-04-18 08:13 | PCSTNOTE ---
Therapist attempted a visit yesterday 04/17 however patient's first story was unrelated to current situation and it was felt that patient was not able at that time to participate in direct therapy tasks. Will try again today, 04/18.
[2024-04-18] MEDS: HEPARIN SODIUM 5,000 UNITS/ML VIAL 5000 UNITS SUB-Q ×2 (08:33→20:37)
[2024-04-18] MEDS: PANTOPRAZOLE SODIUM IV 40 MG VIAL IV PUSH ×2 (08:33→20:37)
[2024-04-18] MEDS: predniSONE 5 MG TABLET PO ×2 (08:33→17:55)
[2024-04-18] MEDS: FOLIC ACID 1 MG TABLET PO (08:33)
[2024-04-18] MEDS: CEFEPIME 2 GM/NS 50 ML 2 GM/50 ML BAG IVPB ×2 (08:37→20:36)
--- NOTE | 2024-04-18 12:09 | PM.IMPN ---
Progress Note: A&P Assessment and Plan (1) Acute hypoxic respiratory failure: Code(s): J96.01 - Acute respiratory failure with hypoxia Status: Acute Assessment and Plan: Quad viral screen negative on admission. CT chest showed no acute abnormalities. Revealed lingular nodule 8 mm and most likely benign multinodular goiter both to be followed up outpatient. on 04/16 nighttime patient noted to be hypoxic and required BiPAP. VBG showed 7.37/49/67 on 1 L (specimen not fully resulted per respiratory therapist. This is not been entered into the system. Unsure the reliability of this.) 04/17 she is now on 2L, breathing well. ctm. Continue to wean as tolerated. On 04/18 this is now resolved. (2) Encephalopathy acute: Code(s): G93.40 - Encephalopathy, unspecified Status: Acute Assessment and Plan: Grandson reportedly interacts with the patient intermittently over the past few years. He has reported she does confabulate at times. Suspect there is some chronicity to her encephalopathy/neurocognitive disorder. CT head on admission demonstrating extra-axial mass partially calcified mass and left frontal lobe measuring 3.4 x 2 cm. Frontotemporal dementia? Dr. West assumed care on 04/17 and on first visit the patient makes lorrie earl leija noises at him. She also confabulates and has flight of speech. Per notes, ER provide discussed CT of the head findings with Neurosurgery at [place]. They felt it was not acute and was not the cause for the patient's encephalopathy. They felt with lack of vasogenic edema that it was a chronic finding. Patient does not have headache or vision changes. TSH normal. Urine drug screen negative. B12 and folate levels high. Ammonia, salicylates, acetaminophen, HIV, RPR screens all negative. SSRI withdrawal? Lupus cerebritis? Iatrogenic effect of prednisone? Less likely Acute etiology could include UTI/bacteremia. So far bottle blood culture growing Gram-negative bacilli. Continue cefepime and vancomycin. The patient also presents with hypernatremia can cause encephalopathy On modified barium swallow the patient was aspirating. NG-tube placed on 04/16. Continue tube feeds with free water flushes per Nephrology. Repeat MBS today on 04/18 Per medication rec she takes cyclobenzaprine and tramadol home for arthritis. Hold these. If the patient becomes unmanageable then physical restraints are 1st indicated. Pharmacological restraints will only obstruct her mental evaluation. 04/18 her pleasant confusion is consistent. Attempting to obtain MRI. If her acute issues such as bacteremia/UTI are appropriately treated and she continues to be encephalopathic than a psychiatric eval and placement is reasonable. (3) Ground-level fall: Code(s): W18.30XA - Fall on same level, unspecified, initial encounter Status: Acute Assessment and Plan: Patient has fall of indeterminate duration with mild elevation in CK but not concerning fo rhabdomyolysis. TCK 225 -> 143. Fall precautions. PT/OT (4) Pressure ulcer: Qualifiers: Laterality: right Pressure injury location: buttock Pressure injury stage: unstageable Qualified Code(s): L89.310 - Pressure ulcer of right buttock, unstageable Code(s): L89.90 - Pressure ulcer of unspecified site, unspecified stage Status: Acute Assessment and Plan: Patient has multiple wounds noted related to her being down for a prolonged period. roofing subcontractor to evaluate Continue routine wound care (5) Meningioma: Code(s): D32.9 - Benign neoplasm of meninges, unspecified Status: Acute Assessment and Plan: Head CT shows a large extra-axial partially calcified mass centered in the left frontal lobe with extension across the midline. Probably a benign meningioma. MRI of the brain has been ordered further delineate. (6) Acute hypernatremia: Code(s): E87.0 - Hyperosmolality and
--- NOTE | 2024-04-18 12:28 | P.PNNP_ITS ---
Progress Note: A&P Assessment and Plan (1) Hypernatremia: Code(s): E87.0 - Hyperosmolality and hypernatremia Status: Acute Assessment and Plan: * improvement noted * acute versus chronic versus acute on chronic? * suspect related to volume depletion and associated free water deficit * on increased free water flushes and D5W IVFs * follow trend of sodium levels (2) Hypokalemia: Code(s): E87.6 - Hypokalemia Status: Acute Assessment and Plan: * resolving * likely related to poor nutrition * follow trene (3) Altered mental status: Code(s): R41.82 - Altered mental status, unspecified Status: Acute Assessment and Plan: * admission history suggest some chronic component * evaluation to date noted: * CT of head with large extra-axial calcified mass in left frontal lobe * TSH, UDS and B12/folate levels okay * possibly related to infection (possible UTI + bacteremia) * possibly related to hypernatremia * follow trend of mentation (4) Ground-level fall: Code(s): W18.30XA - Fall on same level, unspecified, initial encounter Status: Acute Assessment and Plan: * circumstance not clear * fall precautions * PT/OT as tolerated (5) UTI (urinary tract infection): Code(s): N39.0 - Urinary tract infection, site not specified Status: Acute Assessment and Plan: * admission UA highly suggestive * follow culture data * 1/2 bottles with Enteroccocus * urine culture with E. coli * on antibiotics (6) Diabetes mellitus: Code(s): E11.9 - Type 2 diabetes mellitus without complications Status: Chronic Assessment and Plan: * follow accu-cheks * glycemic control per hospitalists Will continue to follow. Subjective Date/time seen: 04/18/24 12:28 Interval history: Follow-up for hypernatremia (presumed acute). Remains confused and argumentative at the time of my visit; was requiring arm restraints previously; improvement in sodium level noted with combination of increased free water flushes as well as D5W IVF resuscitation; no apparent distress voiced. Exam Narrative: General: elderly female in NAD Heart: normal S1 and S2; no rub Lungs: clear to auscultation Abdomen: soft, nontender, nondistended, positive bowel sounds Extremities: no cyanosis or clubbing; trace edema Skin: warm and dry Objective Data Vital Signs Vital Signs: Vital Signs Temp Pulse Resp BP Pulse Ox O2 Del Method FiO2 04/18/24 12:00 Room Air 04/18/24 12:00 80 04/18/24 10:00 81 04/18/24 08:00 82 04/18/24 11:41 98.9 F 80 20 125/57 L 97 04/18/24 08:00 Room Air 04/18/24 09:02 97 Room Air 21 04/18/24 07:56 98.1 F 80 22 H 98/51 L 95 04/18/24 02:30 71 16 96 Autopap 04/18/24 05:58 77 04/18/24 04:00 97.7 F 80 20 124/52 L 99 04/18/24 04:00 81 04/18/24 02:00 81 04/18/24 00:00 85 04/18/24 03:50 100 Autopap 04/18/24 00:00 97 F L 81 20 131/57 L 97 04/17/24 22:00 88 04/17/24 20:00 88 04/17/24 20:00 94 Autopap 04/17/24 21:10 96 Room Air 04/17/24 21:18 86 26 H 9
--- NOTE | 2024-04-18 12:28 | PM.PNNEP ---
Progress Note: A&P Assessment and Plan (1) Hypernatremia: Code(s): E87.0 - Hyperosmolality and hypernatremia Status: Acute Assessment and Plan: improvement noted acute versus chronic versus acute on chronic? suspect related to volume depletion and associated free water deficit on increased free water flushes and D5W IVFs follow trend of sodium levels (2) Hypokalemia: Code(s): E87.6 - Hypokalemia Status: Acute Assessment and Plan: resolving likely related to poor nutrition follow trene (3) Altered mental status: Code(s): R41.82 - Altered mental status, unspecified Status: Acute Assessment and Plan: admission history suggest some chronic component evaluation to date noted: CT of head with large extra-axial calcified mass in left frontal lobe TSH, UDS and B12/folate levels okay possibly related to infection (possible UTI + bacteremia) possibly related to hypernatremia follow trend of mentation (4) Ground-level fall: Code(s): W18.30XA - Fall on same level, unspecified, initial encounter Status: Acute Assessment and Plan: circumstance not clear fall precautions PT/OT as tolerated (5) UTI (urinary tract infection): Code(s): N39.0 - Urinary tract infection, site not specified Status: Acute Assessment and Plan: admission UA highly suggestive follow culture data 1/2 bottles with Enteroccocus urine culture with E. coli on antibiotics (6) Diabetes mellitus: Code(s): E11.9 - Type 2 diabetes mellitus without complications Status: Chronic Assessment and Plan: follow accu-cheks glycemic control per hospitalists Will continue to follow. Subjective Date/time seen: 04/18/24 12:28 Interval history: Follow-up for hypernatremia (presumed acute). Remains confused and argumentative at the time of my visit; was requiring arm restraints previously; improvement in sodium level noted with combination of increased free water flushes as well as D5W IVF resuscitation; no apparent distress voiced. Exam Narrative: General: elderly female in NAD Heart: normal S1 and S2; no rub Lungs: clear to auscultation Abdomen: soft, nontender, nondistended, positive bowel sounds Extremities: no cyanosis or clubbing; trace edema Skin: warm and dry Objective Data Vital Signs Vital Signs: Vital Signs Temp Pulse Resp BP Pulse Ox O2 Del Method FiO2 05/30/24 12:00 Room Air 04/18/24 12:00 80 04/18/24 10:00 81 04/18/24 08:00 82 04/18/24 11:41 98.9 F 80 20 125/57 L 97 04/18/24 08:00 Room Air 04/18/24 09:02 97 Room Air 21 04/18/24 07:56 98.1 F 80 22 H 98/51 L 95 04/18/24 02:30 71 16 96 Autopap 04/18/24 05:58 77 04/18/24 04:00 97.7 F 80 20 124/52 L 99 04/18/24 04:00 81 04/18/24 02:00 81 04/18/24 00:00 85 04/18/24 03:50 100 Autopap 04/18/24 00:00 97 F L 81 20 131/57 L 97 04/17/24 22:00 88 04/17/24 20:00 88 04/17/24 20:00 94 Autopap 04/17/24 21:10 96 Room Air 04/17/24 21:18 86 26 H 94 Autopap 04/17/24 19:58 97.8 F 85 20 129/43 L 93 04/17/24 18:00 103 H 04/17/24 16:00 87 04/17/24 16:00 Room Air 04/17/24 16:00 97 F L 84 22 H 135/54 L 94 Intake/Output Intake/Output: Intake & Output 04/15/24 04/16/24 04/17/24 04/18/24 23:59 23:59 23:59 23:59 Intake Total 1650 3811.3 1964.2 2918.8 Output Total 115 300 550 Balance 1535 3511.3 1414.2 2918.8 Meds/Results Medications: Active Medications Generic Name Dose Route Start Last Admin Trade Name Freq PRN Reason Stop Dose Admin Acetaminophen 650 mg 04/16/24 00:31 Acetaminophen 325 Mg Tablet PO QID PRN Pain pain 1-3 or fever Dextrose 12.5 gm 04/17/24 09:08 Dextrose 50% 25 Gm/50 Ml [place]
[2024-04-18] MEDS: DEXTROSE 5% 1,000 ML 1,000 ML 50 ML IV CONT (14:41)
--- NOTE | 2024-04-18 15:51 | PCSTNOTE ---
Please refer to the Modified Barium Swallow Evaluation in the EMR.
[2024-04-18 16:20] LABS: Glucose Point of Care 260 mg/dl (65-105)
[2024-04-18 17:39] LABS: Anion Gap 2 mmol/L (4-12); Blood Urea Nitrogen 15 mg/dL (7-17); Calcium 8.5 mg/dL (8.4-10.2); Carbon Dioxide 29 mmol/L (22-30); Chloride 114 mmol/L (98-107); Estimated CRCL calculation 59 ml/min; Estimated Glomerular Filt Rate > 60; Glucose 196 mg/dL (65-110); Potassium 3.9 mmol/L (3.4-5.0); Sodium 145 mmol/L (137-145)
[2024-04-18 17:56] LABS: Glucose Point of Care 183 mg/dl (65-105)
--- NOTE | 2024-04-18 22:05 | PC.NURSE ---
2205: Haris Mercedes, informed of new room and given a status update. Patient transferred to [facility].
[2024-04-19 00:11] LABS: Glucose Point of Care 174 mg/dl (65-105)
--- NOTE | 2024-04-19 05:00 | ECG_ITS ---
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 Measurements Intervals [place] Rate: 80 P: 66 [place]: 210 QRS: -15 QRSD: 86 T: 38 QT: 386 QTc: 446 Interpretive Statements SINUS RHYTHM WITH FIRST DEGREE AV BLOCK LOW QRS VOLTAGE IN PRECORDIAL LEADS CANNOT R/O SEPTAL INFARCT, AGE INDETERMINATE BORDERLINE ST-T WAVE ABNORMALITY- HIGH LATERAL LEADS BASELINE WANDER- V4-V6 ABNORMAL ECG Compared to ECG 04/18/2024 09:34:53 NO SIGNIFICANT CHANGE Electronically Signed On 04-19-2024 08:49:55 CDT by Sunday Wen D.O.
[2024-04-19 05:25] LABS: Glucose Point of Care 197 mg/dl (65-105)
[2024-04-19 05:35] LABS: Basophils Percent Auto 0.6 % (0.2-1.2); Eosinophils Absolute Auto 0.3 K/mm3 (0-0.3); Eosinophils Percent Auto 5.3 % (0-4.4); Hemoglobin 10.5 g/dL (12.0-15.0); Immature Granulocyte Absolute 0.05 K/mm3 (0.00-0.031); Immature Granulocyte Percent A 0.8 % (0-0.5); Lymphocytes Absolute Auto 1.64 K/mm3 (0.9-3.2); Lymphocytes Percent Auto 26.2 % (18.3-44.2); Mean Corpuscular HGB Conc 31.8 g/dl (32-36); Mean Corpuscular Hemoglobin 29.3 pg (26-34); Mean Corpuscular Volume 92.2 fl (80-100); Mean Platelet Volume 9.5 fl (7.4-10.4); Monocytes Absolute Auto 0.3 K/mm3 (0.1-0.6); Neutrophils Absolute Auto 3.9 K/mm3 (1.3-6.7); Neutrophils Percent Auto 62.1 % (45.5-73.1); Platelet Count Result 188 k/mm3 (150-375); Red Blood Count 3.58 M/mm3 (4.2-5.4); White Blood Count 6.3 K/mm3 (4.5-10.0)
[2024-04-19 05:45] VITALS: BP 147/61; PULSE 79; RESP 18; TEMP 36.8; O2SAT 97
[2024-04-19 05:49] LABS: Anion Gap 5 mmol/L (4-12); Blood Urea Nitrogen 15 mg/dL (7-17); Calcium 8.4 mg/dL (8.4-10.2); Carbon Dioxide 27 mmol/L (22-30); Chloride 114 mmol/L (98-107); Estimated CRCL calculation 65 ml/min; Estimated Glomerular Filt Rate > 60; Glucose 185 mg/dL (65-110); Magnesium 1.8 mg/dL (1.6-2.3); Potassium 3.8 mmol/L (3.4-5.0); Sodium 146 mmol/L (137-145)
[2024-04-19] MEDS: predniSONE 5 MG TABLET PO ×2 (08:08→16:52)
[2024-04-19] MEDS: PANTOPRAZOLE SODIUM IV 40 MG VIAL IV PUSH ×2 (08:08→21:43)
[2024-04-19] MEDS: HEPARIN SODIUM 5,000 UNITS/ML VIAL 5000 UNITS SUB-Q ×2 (08:08→21:43)
[2024-04-19] MEDS: FOLIC ACID 1 MG TABLET PO (08:08)
[2024-04-19] MEDS: CEFEPIME 2 GM/NS 50 ML 2 GM/50 ML BAG IVPB ×2 (08:09→21:43)
[2024-04-19] MEDS: DEXTROSE 5% IN WATER 500 ML 100 ML IV CONT (09:46)
[2024-04-19 09:53] VITALS: PULSE 79; RESP 18; O2SAT 97
--- NOTE | 2024-04-19 11:01 | P.PNNP_ITS ---
Progress Note: A&P Assessment and Plan (1) Hypernatremia: Code(s): E87.0 - Hyperosmolality and hypernatremia Status: Acute Assessment and Plan: * improvement noted * acute versus chronic versus acute on chronic? * suspect related to volume depletion and associated free water deficit * on increased free water flushes and D5W IVFs * follow trend of sodium levels (2) Hypokalemia: Code(s): E87.6 - Hypokalemia Status: Acute Assessment and Plan: * resolving * likely related to poor nutrition * follow trene (3) Altered mental status: Code(s): R41.82 - Altered mental status, unspecified Status: Acute Assessment and Plan: * admission history suggest some chronic component * evaluation to date noted: * CT of head with large extra-axial calcified mass in left frontal lobe * TSH, UDS and B12/folate levels okay * possibly related to infection (UTI + bacteremia) * possibly related to hypernatremia * follow trend of mentation (4) Ground-level fall: Code(s): W18.30XA - Fall on same level, unspecified, initial encounter Status: Acute Assessment and Plan: * circumstance not clear * fall precautions * PT/OT as tolerated (5) UTI (urinary tract infection): Code(s): N39.0 - Urinary tract infection, site not specified Status: Acute Assessment and Plan: * admission UA highly suggestive * follow culture data * 1/2 bottles with Enteroccocus * urine culture with E. coli * on antibiotics (6) Diabetes mellitus: Code(s): E11.9 - Type 2 diabetes mellitus without complications Status: Chronic Assessment and Plan: * follow accu-cheks * glycemic control per hospitalists Will continue to follow. Subjective Date/time seen: 04/19/24 11:01 Interval history: Follow-up for hypernatremia (presumed acute). Mentation seems a bit better at this time but still intermittently confused; sodium continues to improve with current therapy/interventions; no other issues/events overnight or earlier this morning. Exam Narrative: General: elderly female in NAD Heart: normal S1 and S2; no rub Lungs: clear to auscultation Abdomen: soft, nontender, nondistended, positive bowel sounds Extremities: no cyanosis or clubbing; trace edema Skin: warm and intact Objective Data Vital Signs Vital Signs: Vital Signs Temp Pulse Resp BP Pulse Ox O2 Del Method FiO2 04/19/24 10:44 97.4 F L 84 22 H 128/68 96 04/19/24 09:53 79 18 97 Room Air 21 04/19/24 05:45 98.2 F 79 18 147/61 H 97 04/18/24 23:19 Room Air 04/18/24 20:00 Room Air 04/18/24 19:47 97.4 F L 81 18 132/58 L 95 04/18/24 15:40 98.4 F 82 20 159/60 H 97 Intake/Output Intake/Output: Intake & Output 04/16/24 04/17/24 04/18/24 04/19/24 23:59 23:59 23:59 23:59 Intake Total 3811.3 1964.2 3695.8 1170 Output Total 300 550 500 Balance 3511.3 1414.2 3195.8 1170 Meds/Results Medications: Active Medications Generic Name Dose Route Start Last Admin Trade Name Hiltonq PRN Reason Stop Dose Admin Acetaminophen 650 mg 04/16/24 00:31
--- NOTE | 2024-04-19 11:01 | PM.PNNEP ---
Progress Note: A&P Assessment and Plan (1) Hypernatremia: Code(s): E87.0 - Hyperosmolality and hypernatremia Status: Acute Assessment and Plan: improvement noted acute versus chronic versus acute on chronic? suspect related to volume depletion and associated free water deficit on increased free water flushes and D5W IVFs follow trend of sodium levels (2) Hypokalemia: Code(s): E87.6 - Hypokalemia Status: Acute Assessment and Plan: resolving likely related to poor nutrition follow trene (3) Altered mental status: Code(s): R41.82 - Altered mental status, unspecified Status: Acute Assessment and Plan: admission history suggest some chronic component evaluation to date noted: CT of head with large extra-axial calcified mass in left frontal lobe TSH, UDS and B12/folate levels okay possibly related to infection (UTI + bacteremia) possibly related to hypernatremia follow trend of mentation (4) Ground-level fall: Code(s): W18.30XA - Fall on same level, unspecified, initial encounter Status: Acute Assessment and Plan: circumstance not clear fall precautions PT/OT as tolerated (5) UTI (urinary tract infection): Code(s): N39.0 - Urinary tract infection, site not specified Status: Acute Assessment and Plan: admission UA highly suggestive follow culture data 1/2 bottles with Enteroccocus urine culture with E. coli on antibiotics (6) Diabetes mellitus: Code(s): E11.9 - Type 2 diabetes mellitus without complications Status: Chronic Assessment and Plan: follow accu-cheks glycemic control per hospitalists Will continue to follow. Subjective Date/time seen: 04/19/24 11:01 Interval history: Follow-up for hypernatremia (presumed acute). Mentation seems a bit better at this time but still intermittently confused; sodium continues to improve with current therapy/interventions; no other issues/events overnight or earlier this morning. Exam Narrative: General: elderly female in NAD Heart: normal S1 and S2; no rub Lungs: clear to auscultation Abdomen: soft, nontender, nondistended, positive bowel sounds Extremities: no cyanosis or clubbing; trace edema Skin: warm and intact Objective Data Vital Signs Vital Signs: Vital Signs Temp Pulse Resp BP Pulse Ox O2 Del Method FiO2 04/19/24 10:44 97.4 F L 84 22 H 128/68 96 04/19/24 09:53 79 18 97 Room Air 21 04/19/24 05:45 98.2 F 79 18 147/61 H 97 04/18/24 23:19 Room Air 04/18/24 20:00 Room Air 04/18/24 19:47 97.4 F L 81 18 132/58 L 95 04/18/24 15:40 98.4 F 82 20 159/60 H 97 Intake/Output Intake/Output: Intake & Output 04/16/24 04/17/24 04/18/24 04/19/24 23:59 23:59 23:59 23:59 Intake Total 3811.3 1964.2 3695.8 1170 Output Total 300 550 500 Balance 3511.3 1414.2 3195.8 1170 Meds/Results Medications: Active Medications Generic Name Dose Route Start Last Admin Trade Name Freq PRN Reason Stop Dose Admin Acetaminophen 650 mg 04/16/24 00:31 Acetaminophen 325 Mg Tablet PO QID PRN Pain pain 1-3 or fever Dextrose 12.5 gm 04/17/24 09:08 Dextrose 50% 25 Gm/50 Ml Syringe IV PUSH PRN PRN Hypoglycemia Protocol Folic Acid 1 mg 04/16/24 09:00 04/19/24 08:08 Folic Acid 1 Mg Tablet PO 1 mg DAILY FREDERICK Administration Glucagon 1 mg 04/17/24 09:08 Glucagon For Inj 1 Mg Vial IM PRN PRN Hypoglycemia Protocol Glucose 15 gm 04/17/24 09:08 Glucose Oral Gel 15 Gm Of Glucse In 37.5 Gm Tube PO PRN PRN Hypoglycemia Protocol Heparin Sodium (Porcine) 5,000 units 04/16/24 09:00 04/19/24 08:08 Heparin Sodium 5,000 Units/Ml Vial SUB-Q 5,000 units Q12HR FREDERICK Administration Dextrose 1,000 mls @ 100 mls/hr 04/17/24 09:08 Dextrose 5% 1,000 Ml IVPB
[2024-04-19 12:13] LABS: Glucose Point of Care 255 mg/dl (65-105)
[2024-04-19 13:44] VITALS: BP 128/68; PULSE 84; RESP 22; TEMP 36.3; O2SAT 96
--- NOTE | 2024-04-19 16:13 | PC.NURSE ---
Patient refused Novolog for BS of 255. Mingle Operator educated patient on importance of managing BS. Patient still refusing stating I will not let you do another thing to me .
[2024-04-19 16:58] LABS: Anion Gap 2 mmol/L (4-12); Blood Urea Nitrogen 15 mg/dL (7-17); Calcium 8.5 mg/dL (8.4-10.2); Carbon Dioxide 30 mmol/L (22-30); Chloride 110 mmol/L (98-107); Estimated CRCL calculation 65 ml/min; Estimated Glomerular Filt Rate > 60; Glucose 251 mg/dL (65-110); Potassium 4.1 mmol/L (3.4-5.0); Sodium 142 mmol/L (137-145)
--- NOTE | 2024-04-19 17:21 | PM.IMPN ---
Progress Note: A&P Assessment and Plan (1) Acute hypoxic respiratory failure: Code(s): J96.01 - Acute respiratory failure with hypoxia Status: Acute Assessment and Plan: Quad viral screen negative on admission. CT chest showed no acute abnormalities. Revealed lingular nodule 8 mm and most likely benign multinodular goiter both to be followed up outpatient. on 04/16 nighttime patient noted to be hypoxic and required BiPAP. VBG showed 7.37/49/67 on 1 L (specimen not fully resulted per respiratory therapist. This is not been entered into the system. Unsure the reliability of this.) On room air now. Resolved (2) Encephalopathy acute: Code(s): G93.40 - Encephalopathy, unspecified Status: Acute Assessment and Plan: Grandson reportedly interacts with the patient intermittently over the past few years. He has reported she does confabulate at times. Suspect there is some chronicity to her encephalopathy/neurocognitive disorder. CT head on admission demonstrating extra-axial mass partially calcified mass and left frontal lobe measuring 3.4 x 2 cm. Frontotemporal dementia? Dr. West assumed care on 04/17 and on first visit the patient makes [employer] leija noises at him. She also confabulates and has flight of speech. Per notes, ER provide discussed CT of the head findings with Neurosurgery at [place]. They felt it was not acute and was not the cause for the patient's encephalopathy. They felt with lack of vasogenic edema that it was a chronic finding. Patient does not have headache or vision changes. TSH normal. Urine drug screen negative. B12 and folate levels high. Ammonia, salicylates, acetaminophen, HIV, RPR screens all negative. SSRI withdrawal? Lupus cerebritis? Iatrogenic effect of prednisone? Less likely Acute etiology could include UTI/bacteremia. So far bottle blood culture growing Gram-negative bacilli. Continue cefepime and vancomycin. The patient also presents with hypernatremia can cause encephalopathy On modified barium swallow the patient was aspirating. NG-tube placed on 04/16. Continue tube feeds with free water flushes per Nephrology. Repeat MBS today on 04/18 Per medication rec she takes cyclobenzaprine and tramadol home for arthritis. Hold these. If the patient becomes unmanageable then physical restraints are 1st indicated. Pharmacological restraints will only obstruct her mental evaluation. 04/18 her pleasant confusion is consistent. Attempting to obtain MRI. If her acute issues such as bacteremia/UTI are appropriately treated and she continues to be encephalopathic than a psychiatric eval and placement is reasonable. Brain MRI with 3.8 cm meningioma anterior to the frontal lobes. (3) Ground-level fall: Code(s): W18.30XA - Fall on same level, unspecified, initial encounter Status: Acute Assessment and Plan: Patient has fall of indeterminate duration with mild elevation in CK but not concerning fo rhabdomyolysis. TCK 225 -> 143. Fall precautions. PT/OT (4) Pressure ulcer: Qualifiers: Laterality: right Pressure injury location: buttock Pressure injury stage: unstageable Qualified Code(s): L89.310 - Pressure ulcer of right buttock, unstageable Code(s): L89.90 - Pressure ulcer of unspecified site, unspecified stage Status: Acute Assessment and Plan: Patient has multiple wounds noted related to her being down for a prolonged period. debeader to evaluate Continue routine wound care (5) Meningioma: Code(s): D32.9 - Benign neoplasm of meninges, unspecified Status: Acute Assessment and Plan: Head CT shows a large extra-axial partially calcified mass centered in the left frontal lobe with extension across the midline. Probably a benign meningioma. MRI of the brain with no acute findings but 3.8 cm meningioma anterior to the frontal lobes. (6) Acute hypernatremia: Code(s): E87
[2024-04-19 18:08] LABS: Glucose Point of Care 222 mg/dl (65-105)
[2024-04-19] MEDS: INSULIN ASPART (*BKC) 100 UNITS/ML SUB-Q (18:09)
[2024-04-19 21:08] VITALS: BP 126/60; PULSE 81; RESP 18; TEMP 36.9; O2SAT 94
[2024-04-19 23:46] LABS: Glucose Point of Care 211 mg/dl (65-105)
[2024-04-20] MEDS: INSULIN ASPART (*BKC) 100 UNITS/ML SUB-Q ×2 (00:04→12:28)
[2024-04-20 04:53] VITALS: BP 143/70; PULSE 81; RESP 18; TEMP 36.4; O2SAT 95
[2024-04-20 05:01] LABS: Glucose Point of Care 178 mg/dl (65-105)
[2024-04-20 05:28] LABS: Basophils Absolute Auto 0.1 K/mm3 (0.0-0.1); Basophils Percent Auto 0.7 % (0.2-1.2); Eosinophils Absolute Auto 0.4 K/mm3 (0-0.3); Eosinophils Percent Auto 5.2 % (0-4.4); Hematocrit 35.5 % (37.0-47.0); Immature Granulocyte Absolute 0.05 K/mm3 (0.00-0.031); Immature Granulocyte Percent A 0.7 % (0-0.5); Lymphocytes Absolute Auto 1.86 K/mm3 (0.9-3.2); Lymphocytes Percent Auto 26.2 % (18.3-44.2); Mean Corpuscular Hemoglobin 29.3 pg (26-34); Mean Corpuscular Volume 94.4 fl (80-100); Mean Platelet Volume 9.7 fl (7.4-10.4); Monocytes Absolute Auto 0.3 K/mm3 (0.1-0.6); Monocytes Percent Auto 4.2 % (2.6-8.5); Neutrophils Absolute Auto 4.5 K/mm3 (1.3-6.7); Platelet Count Result 177 k/mm3 (150-375); Red Blood Count 3.76 M/mm3 (4.2-5.4); White Blood Count 7.1 K/mm3 (4.5-10.0)
[2024-04-20 05:41] LABS: Alanine Aminotransferase 90 U/L (6-35); Albumin Level 2.8 g/dL (3.5-5.1); Alkaline Phosphatase 119 U/L (38-126); Anion Gap 4 mmol/L (4-12); Aspartate Amino Transferase 269 U/L (14-36); Bilirubin,Total 0.8 mg/dL (0.2-1.3); Blood Urea Nitrogen 14 mg/dL (7-17); Calcium 8.5 mg/dL (8.4-10.2); Carbon Dioxide 30 mmol/L (22-30); Chloride 109 mmol/L (98-107); Estimated CRCL calculation 74 ml/min; Estimated Glomerular Filt Rate > 60; Glucose 194 mg/dL (65-110); Magnesium 1.8 mg/dL (1.6-2.3); Potassium 4.1 mmol/L (3.4-5.0); Sodium 143 mmol/L (137-145)
[2024-04-20 09:30] VITALS: O2SAT 97
[2024-04-20] MEDS: CEFEPIME 2 GM/NS 50 ML 2 GM/50 ML BAG IVPB ×2 (10:36→20:02)
--- NOTE | 2024-04-20 11:08 | PM.PNNEP ---
Progress Note: A&P Assessment and Plan (1) Hypernatremia: Code(s): E87.0 - Hyperosmolality and hypernatremia Status: Acute Assessment and Plan: improvement noted acute versus chronic versus acute on chronic? suspect related to volume depletion and associated free water deficit on increased free water flushes if unable to take oral intake, may need to discuss feeding tube placement follow trend of sodium levels (2) Hypokalemia: Code(s): E87.6 - Hypokalemia Status: Acute Assessment and Plan: resolving likely related to poor nutrition follow trene (3) Altered mental status: Code(s): R41.82 - Altered mental status, unspecified Status: Acute Assessment and Plan: admission history suggest some chronic component evaluation to date noted: CT of head with large extra-axial calcified mass in left frontal lobe TSH, UDS and B12/folate levels okay possibly related to infection (UTI + bacteremia) possibly related to hypernatremia follow trend of mentation (4) Ground-level fall: Code(s): W18.30XA - Fall on same level, unspecified, initial encounter Status: Acute Assessment and Plan: circumstance not clear fall precautions PT/OT as tolerated (5) UTI (urinary tract infection): Code(s): N39.0 - Urinary tract infection, site not specified Status: Acute Assessment and Plan: admission UA highly suggestive follow culture data 1/2 bottles with Enteroccocus urine culture with E. coli on antibiotics (6) Diabetes mellitus: Code(s): E11.9 - Type 2 diabetes mellitus without complications Status: Chronic Assessment and Plan: follow accu-cheks glycemic control per hospitalists Not much else to add at this time -- will continue to follow from a distance. Subjective Date/time seen: 04/20/24 11:08 Interval history: Follow-up for hypernatremia (presumed acute). Confusion continues to fluctuate in general since admission; sodium appears to have normalized at this time and has been weaned off D5W IVFs currently; remains on tube feeds with free water flushes; no acute distress noted. Exam Narrative: General: elderly female in NAD Heart: normal S1 and S2; no rub Lungs: clear to auscultation Abdomen: soft, nontender, nondistended, positive bowel sounds Extremities: no cyanosis or clubbing; trace edema Skin: no rash or nodules Objective Data Vital Signs Vital Signs: Vital Signs Temp Pulse Resp BP Pulse Ox O2 Del Method 04/20/24 04:53 97.6 F 81 18 143/70 H 95 04/19/24 20:00 Room Air 04/19/24 21:08 98.5 F 81 18 126/60 94 Intake/Output Intake/Output: Intake & Output 04/17/24 04/18/24 04/19/24 04/20/24 23:59 23:59 23:59 23:59 Intake Total 1964.2 3695.8 1220 0 Output Total 550 500 400 850 Balance 1414.2 3195.8 820 -850 Meds/Results Medications: Active Medications Generic Name Dose Route Start Last Admin Trade Name Hiltonq PRN Reason Stop Dose Admin Acetaminophen 650 mg 04/16/24 00:31 Acetaminophen 325 Mg Tablet PO QID PRN Pain pain 1-3 or fever Dextrose 12.5 gm 04/17/24 09:08 Dextrose 50% 25 Gm/50 Ml Syringe IV PUSH PRN PRN Hypoglycemia Protocol Folic Acid 1 mg 04/16/24 09:00 04/20/24 09:47 Folic Acid 1 Mg Tablet PO Not Given DAILY FREDERICK Glucagon 1 mg 04/17/24 09:08 Glucagon For Inj 1 Mg Vial IM PRN PRN Hypoglycemia Protocol Glucose 15 gm 04/17/24 09:08 Glucose Oral Gel 15 Gm Of Glucse In 37.5 Gm Tube PO PRN PRN Hypoglycemia Protocol Heparin Sodium (Porcine) 5,000 units 04/16/24 09:00 04/20/24 09:47 Heparin Sodium 5,000 Units/Ml Vial SUB-Q Not Given Q12HR FREDERICK Dextrose 1,000 mls @ 100 mls/hr 04/17/24 09:08 Dextrose 5% 1,000 Ml IVPB PRN PRN Hypoglycemia Protocol Cefepime HCl 2 gm in 50 mls
--- NOTE | 2024-04-20 11:08 | P.PNNP_ITS ---
Progress Note: A&P Assessment and Plan (1) Hypernatremia: Code(s): E87.0 - Hyperosmolality and hypernatremia Status: Acute Assessment and Plan: * improvement noted * acute versus chronic versus acute on chronic? * suspect related to volume depletion and associated free water deficit * on increased free water flushes * if unable to take oral intake, may need to discuss feeding tube placement * follow trend of sodium levels (2) Hypokalemia: Code(s): E87.6 - Hypokalemia Status: Acute Assessment and Plan: * resolving * likely related to poor nutrition * follow trene (3) Altered mental status: Code(s): R41.82 - Altered mental status, unspecified Status: Acute Assessment and Plan: * admission history suggest some chronic component * evaluation to date noted: * CT of head with large extra-axial calcified mass in left frontal lobe * TSH, UDS and B12/folate levels okay * possibly related to infection (UTI + bacteremia) * possibly related to hypernatremia * follow trend of mentation (4) Ground-level fall: Code(s): W18.30XA - Fall on same level, unspecified, initial encounter Status: Acute Assessment and Plan: * circumstance not clear * fall precautions * PT/OT as tolerated (5) UTI (urinary tract infection): Code(s): N39.0 - Urinary tract infection, site not specified Status: Acute Assessment and Plan: * admission UA highly suggestive * follow culture data * 1/2 bottles with Enteroccocus * urine culture with E. coli * on antibiotics (6) Diabetes mellitus: Code(s): E11.9 - Type 2 diabetes mellitus without complications Status: Chronic Assessment and Plan: * follow accu-cheks * glycemic control per hospitalists Not much else to add at this time -- will continue to follow from a distance. Subjective Date/time seen: 04/20/24 11:08 Interval history: Follow-up for hypernatremia (presumed acute). Confusion continues to fluctuate in general since admission; sodium appears to have normalized at this time and has been weaned off D5W IVFs currently; remains on tube feeds with free water flushes; no acute distress noted. Exam Narrative: General: elderly female in NAD Heart: normal S1 and S2; no rub Lungs: clear to auscultation Abdomen: soft, nontender, nondistended, positive bowel sounds Extremities: no cyanosis or clubbing; trace edema Skin: no rash or nodules Objective Data Vital Signs Vital Signs: Vital Signs Temp Pulse Resp BP Pulse Ox O2 Del Method 04/20/24 04:53 97.6 F 81 18 143/70 H 95 04/19/24 20:00 Room Air 04/19/24 21:08 98.5 F 81 18 126/60 94 Intake/Output Intake/Output: Intake & Output 04/17/24 04/18/24 04/19/24 04/20/24 23:59 23:59 23:59 23:59 Intake Total 1964.2 3695.8 1220 0 Output Total 550 500 400 850 Balance 1414.2 3195.8 820 -850 Meds/Results Medications: Active Medications Generic Name Dose Route Start Last Admin Trade Name Freq PRN Reason Stop Dose Admin Acetaminophen 650 mg 04/16/24 00:31 Acetaminophen 325 Mg Tablet PO QID PRN
[2024-04-20 12:13] LABS: Glucose Point of Care 210 mg/dl (65-105)
--- NOTE | 2024-04-20 13:46 | P.PNIM_ITS ---
Progress Note: A&P Assessment and Plan (1) Acute hypoxic respiratory failure: Code(s): J96.01 - Acute respiratory failure with hypoxia Status: Acute Assessment and Plan: * Quad viral screen negative on admission. CT chest showed no acute abnormalities. Revealed lingular nodule 8 mm and most likely benign multinodular goiter both to be followed up outpatient. * on 04/16 nighttime patient noted to be hypoxic and required BiPAP. VBG showed 7.37/49/67 on 1 L (specimen not fully resulted per respiratory therapist. This is not been entered into the system. Unsure the reliability of this.) * On room air now. Resolved (2) Encephalopathy acute: Code(s): G93.40 - Encephalopathy, unspecified Status: Acute Assessment and Plan: * Grandson reportedly interacts with the patient intermittently over the past few years. He has reported she does confabulate at times. Suspect there is some chronicity to her encephalopathy/neurocognitive disorder. CT head on admission demonstrating extra-axial mass partially calcified mass and left frontal lobe measuring 3.4 x 2 cm. Frontotemporal dementia? Dr. West assumed care on 04/17 and on first visit the patient makes [employer] leija noises at him. She also confabulates and has flight of speech. Per notes, ER provide discussed CT of the head findings with Neurosurgery at [place]. They felt it was not acute and was not the cause for the patient's encephalopathy. They felt with lack of vasogenic edema that it was a chronic finding. Patient does not have headache or vision changes. * TSH normal. Urine drug screen negative. B12 and folate levels high. Ammonia, salicylates, acetaminophen, HIV, RPR screens all negative. * SSRI withdrawal? Lupus cerebritis? Iatrogenic effect of prednisone? Less likely * Acute etiology could include UTI/bacteremia. So far bottle blood culture growing Gram-negative bacilli. Continue cefepime and vancomycin. * The patient also presents with hypernatremia can cause encephalopathy * On modified barium swallow the patient was aspirating. NG-tube placed on 04/16. Continue tube feeds with free water flushes per Nephrology. Repeat MBS today on 04/18 * Per medication rec she takes cyclobenzaprine and tramadol home for arthritis. Hold these. If the patient becomes unmanageable then physical restraints are 1st indicated. Pharmacological restraints will only obstruct her mental evaluation. * 04/18 her pleasant confusion is consistent. Attempting to obtain MRI. If her acute issues such as bacteremia/UTI are appropriately treated and she continues to be encephalopathic than a psychiatric eval and placement is reasonable. * Brain MRI with 3.8 cm meningioma anterior to the frontal lobes. Add Seroquel at night sleep (3) Ground-level fall: Code(s): W18.30XA - Fall on same level, unspecified, initial encounter Status: Acute Assessment and Plan: Patient has fall of indeterminate duration with mild elevation in CK but not concerning fo rhabdomyolysis. TCK 225 -> 143. Fall precautions. PT/OT (4) Pressure ulcer: Qualifiers: Laterality: right Pressure injury location: buttock Pressure injury stage: unstageable Qualified Code(s): L89.310 - Pressure ulcer of right buttock, unstageable Code(s): L89.90 - Pressure ulcer of unspecified site, unspecified stage Status: Acute Assessment and Plan: Patient has multiple wounds noted related to her being down for a prolonged period. transcriber to evaluate Continue routine wound care (5) Meningioma: Code(s): D32.
[2024-04-20 14:35] VITALS: BP 122/63; PULSE 84; RESP 19; TEMP 36.8; O2SAT 97
--- NOTE | 2024-04-20 18:26 | PC.NURSE ---
Notified grandson Haris of NG tube removal by patient. Informed Haris that patient was very insistent on not having tube reinserted. Haris verified understanding and stated he would prefer not to have his grandmother in restraints at this time. Grandprasanna agreed with MDs recommendation to reevaluate tomorrow.
[2024-04-20 18:35] LABS: Glucose Point of Care 212 mg/dl (65-105)
--- NOTE | 2024-04-20 19:18 | PC.NURSE ---
1800 insulin not administered as patient has removed NG tube and is NPO.
[2024-04-20 19:21] VITALS: BP 128/55; PULSE 87; RESP 16; TEMP 36.9; O2SAT 92
[2024-04-20] MEDS: PANTOPRAZOLE SODIUM IV 40 MG VIAL IV PUSH (20:02)
[2024-04-21 00:02] LABS: Glucose Point of Care 144 mg/dl (65-105)
[2024-04-21 04:07] VITALS: BP 117/58; PULSE 85; RESP 16; TEMP 36.6; O2SAT 93
[2024-04-21 05:38] LABS: Basophils Absolute Auto 0.1 K/mm3 (0.0-0.1); Basophils Percent Auto 0.8 % (0.2-1.2); Eosinophils Absolute Auto 0.4 K/mm3 (0-0.3); Eosinophils Percent Auto 4.8 % (0-4.4); Hematocrit 35.2 % (37.0-47.0); Hemoglobin 11.2 g/dL (12.0-15.0); Immature Granulocyte Absolute 0.07 K/mm3 (0.00-0.031); Immature Granulocyte Percent A 0.8 % (0-0.5); Lymphocytes Percent Auto 26.9 % (18.3-44.2); Mean Corpuscular HGB Conc 31.8 g/dl (32-36); Mean Corpuscular Hemoglobin 29.2 pg (26-34); Mean Corpuscular Volume 91.7 fl (80-100); Mean Platelet Volume 9.6 fl (7.4-10.4); Monocytes Absolute Auto 0.4 K/mm3 (0.1-0.6); Monocytes Percent Auto 4.8 % (2.6-8.5); Neutrophils Absolute Auto 5.3 K/mm3 (1.3-6.7); Neutrophils Percent Auto 61.9 % (45.5-73.1); Platelet Count Result 193 k/mm3 (150-375); Red Blood Count 3.84 M/mm3 (4.2-5.4); Red Cell Distribution Width 14.8 % (11.5-14.5); White Blood Count 8.5 K/mm3 (4.5-10.0)
[2024-04-21 05:56] LABS: Alanine Aminotransferase 86 U/L (6-35); Albumin Level 2.8 g/dL (3.5-5.1); Alkaline Phosphatase 141 U/L (38-126); Anion Gap 1 mmol/L (4-12); Aspartate Amino Transferase 189 U/L (14-36); Bilirubin,Total 1.1 mg/dL (0.2-1.3); Blood Urea Nitrogen 15 mg/dL (7-17); Calcium 8.8 mg/dL (8.4-10.2); Carbon Dioxide 32 mmol/L (22-30); Chloride 107 mmol/L (98-107); Estimated CRCL calculation 75 ml/min; Estimated Glomerular Filt Rate > 60; Glucose 141 mg/dL (65-110); Magnesium 1.9 mg/dL (1.6-2.3); Potassium 4.2 mmol/L (3.4-5.0); Sodium 140 mmol/L (137-145)
[2024-04-21 06:00] LABS: Glucose Point of Care 141 mg/dl (65-105)
[2024-04-21 07:46] LABS: Glucose Point of Care 144 mg/dl (65-105)
[2024-04-21] MEDS: CEFEPIME 2 GM/NS 50 ML 2 GM/50 ML BAG IVPB ×2 (08:49→20:01)
[2024-04-21 08:50] VITALS: O2SAT 93
[2024-04-21] MEDS: PANTOPRAZOLE SODIUM IV 40 MG VIAL IV PUSH ×2 (08:50→20:00)
[2024-04-21] MEDS: HEPARIN SODIUM 5,000 UNITS/ML VIAL 5000 UNITS SUB-Q (08:55)
--- NOTE | 2024-04-21 10:44 | PCSTNOTE ---
Bedside swallow evaluation ordered this morning second to pt. removing NG tube. Pt. history is positive for silent aspiration (MBS 04/16/24) and weak cough with aspiration (MBS 04/18/24). Recommendations at the time of 04/18/24 MBS indicated possible need to consider long-term non-oral feedings . Spoke with attending nurse, Radha, indicating necessity of a repeat MBS rather than a bedside swallow evaluation second to history of silent aspiration. MBS recommended to be completed Monday morning when radiologist is present on site. Message left for attending physician, Dr. Perez, indicating ST concerns and recommendations.
--- NOTE | 2024-04-21 11:53 | PM.IMPN ---
Progress Note: A&P Assessment and Plan (1) Acute hypoxic respiratory failure: Code(s): J96.01 - Acute respiratory failure with hypoxia Status: Acute Assessment and Plan: Quad viral screen negative on admission. CT chest showed no acute abnormalities. Revealed lingular nodule 8 mm and most likely benign multinodular goiter both to be followed up outpatient. on 04/16 nighttime patient noted to be hypoxic and required BiPAP. VBG showed 7.37/49/67 on 1 L (specimen not fully resulted per respiratory therapist. This is not been entered into the system. Unsure the reliability of this.) On room air now. Resolved (2) Encephalopathy acute: Code(s): G93.40 - Encephalopathy, unspecified Status: Acute Assessment and Plan: Grandson reportedly interacts with the patient intermittently over the past few years. He has reported she does confabulate at times. Suspect there is some chronicity to her encephalopathy/neurocognitive disorder. CT head on admission demonstrating extra-axial mass partially calcified mass and left frontal lobe measuring 3.4 x 2 cm. Frontotemporal dementia? Dr. West assumed care on 04/17 and on first visit the patient makes [employer]or[employer]emic Sound leija noises at him. She also confabulates and has flight of speech. Per notes, ER provide discussed CT of the head findings with Neurosurgery at [place]. They felt it was not acute and was not the cause for the patient's encephalopathy. They felt with lack of vasogenic edema that it was a chronic finding. Patient does not have headache or vision changes. TSH normal. Urine drug screen negative. B12 and folate levels high. Ammonia, salicylates, acetaminophen, HIV, RPR screens all negative. SSRI withdrawal? Lupus cerebritis? Iatrogenic effect of prednisone? Less likely Acute etiology could include UTI/bacteremia. So far bottle blood culture growing Gram-negative bacilli. Continue cefepime and vancomycin. The patient also presents with hypernatremia can cause encephalopathy On modified barium swallow the patient was aspirating. NG-tube placed on 04/16. Continue tube feeds with free water flushes per Nephrology. Repeat MBS today on 04/18 Per medication rec she takes cyclobenzaprine and tramadol home for arthritis. Hold these. If the patient becomes unmanageable then physical restraints are 1st indicated. Pharmacological restraints will only obstruct her mental evaluation. 04/18 her pleasant confusion is consistent. Attempting to obtain MRI. If her acute issues such as bacteremia/UTI are appropriately treated and she continues to be encephalopathic than a psychiatric eval and placement is reasonable. Brain MRI with 3.8 cm meningioma anterior to the frontal lobes. Add Seroquel at night sleep (3) Ground-level fall: Code(s): W18.30XA - Fall on same level, unspecified, initial encounter Status: Acute Assessment and Plan: Patient has fall of indeterminate duration with mild elevation in CK but not concerning fo rhabdomyolysis. TCK 225 -> 143. Fall precautions. PT/OT (4) Pressure ulcer: Qualifiers: Laterality: right Pressure injury location: buttock Pressure injury stage: unstageable Qualified Code(s): L89.310 - Pressure ulcer of right buttock, unstageable Code(s): L89.90 - Pressure ulcer of unspecified site, unspecified stage Status: Acute Assessment and Plan: Patient has multiple wounds noted related to her being down for a prolonged period. dermatology sales representative to evaluate Continue routine wound care (5) Meningioma: Code(s): D32.9 - Benign neoplasm of meninges, unspecified Status: Acute Assessment and Plan: Head CT shows a large extra-axial partially calcified mass centered in the left frontal lobe with extension across the midline. Probably a benign meningioma. MRI of the brain with no acute findings but 3.8 cm meningioma anterior to the frontal lobes. (6) Acute hypernatremia
[2024-04-21 11:59] LABS: Glucose Point of Care 130 mg/dl (65-105)
[2024-04-21] MEDS: DEXTROSE 5%/0.9% SOD CHL 1,000 ML 60 ML IV CONT (12:33)
[2024-04-21 14:00] VITALS: BP 130/54; PULSE 83; RESP 18; TEMP 36.4; O2SAT 93
[2024-04-21 16:51] LABS: Glucose Point of Care 144 mg/dl (65-105)
[2024-04-21 19:29] VITALS: BP 136/62; PULSE 85; RESP 16; TEMP 36.6; O2SAT 99
[2024-04-21] MEDS: KETOROLAC 15 MG/ML VIAL (*BKC) IV PUSH (23:44)
[2024-04-21 23:48] LABS: Glucose Point of Care 130 mg/dl (65-105)
[2024-04-22 05:16] VITALS: BP 130/80; PULSE 72; RESP 16; TEMP 36.5; O2SAT 97
[2024-04-22] MEDS: DEXTROSE 5%/0.9% SOD CHL 1,000 ML 60 ML IV CONT (05:39)
[2024-04-22 05:41] LABS: Basophils Absolute Auto 0.1 K/mm3 (0.0-0.1); Basophils Percent Auto 0.8 % (0.2-1.2); Eosinophils Absolute Auto 0.4 K/mm3 (0-0.3); Eosinophils Percent Auto 5.6 % (0-4.4); Hemoglobin 11.4 g/dL (12.0-15.0); Immature Granulocyte Percent A 1.3 % (0-0.5); Lymphocytes Absolute Auto 1.81 K/mm3 (0.9-3.2); Mean Corpuscular HGB Conc 31.7 g/dl (32-36); Mean Corpuscular Hemoglobin 29.2 pg (26-34); Mean Corpuscular Volume 92.1 fl (80-100); Mean Platelet Volume 9.6 fl (7.4-10.4); Monocytes Absolute Auto 0.5 K/mm3 (0.1-0.6); Monocytes Percent Auto 6.2 % (2.6-8.5); Neutrophils Absolute Auto 4.7 K/mm3 (1.3-6.7); Neutrophils Percent Auto 62.1 % (45.5-73.1); Platelet Count Result 192 k/mm3 (150-375); Red Blood Count 3.91 M/mm3 (4.2-5.4); Red Cell Distribution Width 14.4 % (11.5-14.5); White Blood Count 7.5 K/mm3 (4.5-10.0)
[2024-04-22 06:04] LABS: Alanine Aminotransferase 67 U/L (6-35); Albumin Level 2.9 g/dL (3.5-5.1); Alkaline Phosphatase 133 U/L (38-126); Anion Gap 0 mmol/L (4-12); Aspartate Amino Transferase 111 U/L (14-36); Blood Urea Nitrogen 14 mg/dL (7-17); Calcium 8.6 mg/dL (8.4-10.2); Carbon Dioxide 31 mmol/L (22-30); Chloride 106 mmol/L (98-107); Estimated CRCL calculation 64 ml/min; Estimated Glomerular Filt Rate > 60; Glucose 145 mg/dL (65-110); Magnesium 1.9 mg/dL (1.6-2.3); Potassium 4.3 mmol/L (3.4-5.0); Sodium 137 mmol/L (137-145)
[2024-04-22 06:07] LABS: Glucose Point of Care 136 mg/dl (65-105)
--- NOTE | 2024-04-22 08:12 | PCPTNOTE ---
Patient declined PT at this time stating I would like to see the doctor before doing anything beacuse I have a foot problem. PT will continue to follow per plan of care.
[2024-04-22 09:00] VITALS: O2SAT 97
[2024-04-22] MEDS: PANTOPRAZOLE SODIUM IV 40 MG VIAL IV PUSH ×2 (09:01→20:12)
[2024-04-22] MEDS: CEFEPIME 2 GM/NS 50 ML 2 GM/50 ML BAG IVPB ×2 (09:01→20:11)
[2024-04-22] MEDS: HEPARIN SODIUM 5,000 UNITS/ML VIAL 5000 UNITS SUB-Q (09:01)
--- NOTE | 2024-04-22 11:05 | PCSTNOTE ---
Please refer to the Modified Barium Swallow Evaluation in the EMR.
--- NOTE | 2024-04-22 12:02 | ECG_ITS ---
[facility] [address] Test Date: 2024-04-22 Pat Name: Jayshree Holder Department: Room: 345 Gender: F Tight Cooper: : 1945 Requested By: Jose Perez Order Number: [id number] Arelis MD: Nir Aguirre M.D. Measurements Intervals Gamaliel Rate: 75 P: 103 OR: 214 QRS: -18 QRSD: 84 T: 16 QT: 400 QTc: 447 Interpretive Statements SINUS RHYTHM WITH OCCASIONAL PAC LOW QRS VOLTAGE IN PRECORDIAL LEADS [QRS DEFLECTION < 1.0 mV IN CHEST LEADS] MODERATE VOLTAGE CRITERIA FOR LVH, CONSIDER NORMAL VARIANT [MEETS CRITERIA IN ONE OF: R(aVL), S(V1), R(V5), R(V5/V6)+S(V1)] POSSIBLE ANTERIOR MYOCARDIAL INFARCTION , PROBABLY OLD [30 ms Q WAVE IN V3/V4, OR R < 0.2 mV IN V4] ABNORMAL ECG WARNING: DATA QUALITY MAY AFFECT INTERPRETATION Compared to ECG 04/19/2024 06:49:21 THERE IS NO SIGNIFICANT CHANGE Electronically Signed On 04-22-2024 14:57:23 CDT by Nir Aguirre M.D.
[2024-04-22 12:29] LABS: Glucose Point of Care 154 mg/dl (65-105)
--- NOTE | 2024-04-22 13:46 | PM.IMPN ---
Progress Note: A&P Assessment and Plan (1) Acute hypoxic respiratory failure: Code(s): J96.01 - Acute respiratory failure with hypoxia Status: Acute Assessment and Plan: Quad viral screen negative on admission. CT chest showed no acute abnormalities. Revealed lingular nodule 8 mm and most likely benign multinodular goiter both to be followed up outpatient. on 04/16 nighttime patient noted to be hypoxic and required BiPAP. VBG showed 7.37/49/67 on 1 L (specimen not fully resulted per respiratory therapist. This is not been entered into the system. Unsure the reliability of this.) On room air now. Resolved (2) Encephalopathy acute: Code(s): G93.40 - Encephalopathy, unspecified Status: Acute Assessment and Plan: Grandson reportedly interacts with the patient intermittently over the past few years. He has reported she does confabulate at times. Suspect there is some chronicity to her encephalopathy/neurocognitive disorder. CT head on admission demonstrating extra-axial mass partially calcified mass and left frontal lobe measuring 3.4 x 2 cm. Frontotemporal dementia? Dr. West assumed care on 04/17 and on first visit the patient makes lorrieReceptor leija noises at him. She also confabulates and has flight of speech. Per notes, ER provide discussed CT of the head findings with Neurosurgery at [place]. They felt it was not acute and was not the cause for the patient's encephalopathy. They felt with lack of vasogenic edema that it was a chronic finding. Patient does not have headache or vision changes. TSH normal. Urine drug screen negative. B12 and folate levels high. Ammonia, salicylates, acetaminophen, HIV, RPR screens all negative. SSRI withdrawal? Lupus cerebritis? Iatrogenic effect of prednisone? Less likely Acute etiology could include UTI/bacteremia. So far bottle blood culture growing Gram-negative bacilli. Continue cefepime and vancomycin. The patient also presents with hypernatremia can cause encephalopathy On modified barium swallow the patient was aspirating. NG-tube placed on 04/16. Continue tube feeds with free water flushes per Nephrology. Repeat MBS today on 04/18 Per medication rec she takes cyclobenzaprine and tramadol home for arthritis. Hold these. If the patient becomes unmanageable then physical restraints are 1st indicated. Pharmacological restraints will only obstruct her mental evaluation. 04/18 her pleasant confusion is consistent. Attempting to obtain MRI. If her acute issues such as bacteremia/UTI are appropriately treated and she continues to be encephalopathic than a psychiatric eval and placement is reasonable. Brain MRI with 3.8 cm meningioma anterior to the frontal lobes. Add Seroquel at night sleep which she has not reviewed because npo and loosing ng tube (3) Ground-level fall: Code(s): W18.30XA - Fall on same level, unspecified, initial encounter Status: Acute Assessment and Plan: Patient has fall of indeterminate duration with mild elevation in CK but not concerning fo rhabdomyolysis. TCK 225 -> 143. Fall precautions. PT/OT (4) Pressure ulcer: Qualifiers: Laterality: right Pressure injury location: buttock Pressure injury stage: unstageable Qualified Code(s): L89.310 - Pressure ulcer of right buttock, unstageable Code(s): L89.90 - Pressure ulcer of unspecified site, unspecified stage Status: Acute Assessment and Plan: Patient has multiple wounds noted related to her being down for a prolonged period. integration developer to evaluate Continue routine wound care (5) Meningioma: Code(s): D32.9 - Benign neoplasm of meninges, unspecified Status: Acute Assessment and Plan: Head CT shows a large extra-axial partially calcified mass centered in the left frontal lobe with extension across the midline. Probably a benign meningioma. MRI of the brain with no acute findings but 3.8 cm meningi
[2024-04-22 14:47] VITALS: BP 105/43; PULSE 81; RESP 16; TEMP 36.8; O2SAT 93
--- NOTE | 2024-04-22 17:14 | WPDGICN ---
Assessment and Plan Assessment and plan (1) Dysphagia: Code(s): R13.10 - Dysphagia, unspecified Status: Acute Assessment and Plan: again failed MBS evaluation, she has silent aspiration agreeable to peg placement, will do it tomorrow (2) Silent aspiration: Code(s): T17.900A - Unspecified foreign body in respiratory tract, part unspecified causing asphyxiation, initial encounter Status: Acute Assessment and Plan: npo status for now (3) Hypernatremia: Code(s): E87.0 - Hyperosmolality and hypernatremia Status: Acute Assessment and Plan: treated (4) Acute hypoxic respiratory failure: Code(s): J96.01 - Acute respiratory failure with hypoxia Status: Acute Assessment and Plan: resolved (5) Encephalopathy acute: Code(s): G93.40 - Encephalopathy, unspecified Status: Acute (6) Meningioma: Code(s): D32.9 - Benign neoplasm of meninges, unspecified Status: Acute (7) UTI (urinary tract infection): Code(s): N39.0 - Urinary tract infection, site not specified Status: Acute Assessment and Plan: bacteremia on admission, resolved GI Consult Note Consult date/time: 04/22/24 17:14 Reason for consult: dysphagia, silent aspiration HPI: Jayshree Holder is a 78 year old female here admitted 04/15 after was found unresponsive and diagnosed with acute encephalopathy which has improved, also had hypernatremia, respiratory failure but treated and no requiring any more oxygen, also had bacteremia treated with abx. She was unable to swallow and initially treated with NGT and tube feeding but she pulled out ngt, initial MBS reported aspiration, repeated again after mental status improved but still with silent aspiration. She is agreeable to proceed with peg placement. On admission also noted to have meningioma. Review of Systems Constitutional: Constitutional: Reports weakness Eyes: Eyes: Denies blurry vision ENT: Reports Normal hearing present Cardiovascular: Cardiovascular: Denies chest pain Respiratory: Respiratory: Denies chest congestion Gastrointestinal: Gastrointestinal: Reports no additional gastrointestinal complaints Genitourinary: Genitourinary: Denies dysuria Musculoskeletal: Musculoskeletal: Denies neck pain Integumentary/Breasts: Skin/Breast: Denies rash Neurologic: Denies Abnormal speech present Psychiatric: Psychiatric: Denies behavioral changes [facility]LY [facility] Past Medical History Medical History (Updated 04/22/24 @ 17:18 by Kirill Leija MD) Asthma Chronic anemia COPD (chronic obstructive pulmonary disease) Diabetes mellitus Glaucoma History of small bowel obstruction Kidney stones Lupus On chronic steroid Obstructive sleep apnea Rheumatoid arthritis Silent aspiration Surgical History Surgical History (Updated 04/16/24 @ 00:43 by Teodora Barahona DO) History of bowel resection Hx of cholecystectomy Status post cataract extraction of both eyes with insertion of intraocular lens Family History Family History Sibling Acute myocardial infarction Colon cancer Sibling Acute myocardial infarction Colon cancer Mother Acute myocardial infarction Social History Social History (Updated 04/16/24 @ 00:45 by Teodora Barahona DO) Social History: The patient lives in her own home. She is . She had 1 daughter who in 2005 of a heart attack. She is a lifelong nonsmoker and does not drink alcohol or use illicit substances. 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 Code status: Full code Healthcare power of prosecuting attorney: Haris Holder Smoking status: Never smoker Alcohol intake: never Substance use: never Spiritual care concerns: No Meds Home Medications and Allergies Home Medications Medication Instructions Recorded Confirmed Type acetaminophen 325 mg tablet 650 mg PO QID PRN Pain (
[2024-04-22 18:39] LABS: Glucose Point of Care 152 mg/dl (65-105)
[2024-04-22 19:50] VITALS: BP 119/68; PULSE 103; RESP 16; TEMP 36.3; O2SAT 90
[2024-04-22 23:37] LABS: Glucose Point of Care 143 mg/dl (65-105)
[2024-04-23] VITALS (8 sets, daily range): BP systolic 120–144; BP diastolic 54–87; PULSE 73–94; RESP 16–23; TEMP 36.2–36.6; O2SAT 93–97
[2024-04-23] MEDS: DEXTROSE 5%/0.9% SOD CHL 1,000 ML 60 ML IV CONT ×2 (00:23→19:43)
[2024-04-23 05:56] LABS: Glucose Point of Care 139 mg/dl (65-105)
[2024-04-23 05:58] LABS: Basophils Absolute Auto 0.1 K/mm3 (0.0-0.1); Basophils Percent Auto 0.9 % (0.2-1.2); Eosinophils Absolute Auto 0.4 K/mm3 (0-0.3); Eosinophils Percent Auto 5.9 % (0-4.4); Hematocrit 34.2 % (37.0-47.0); Hemoglobin 10.9 g/dL (12.0-15.0); Immature Granulocyte Absolute 0.08 K/mm3 (0.00-0.031); Immature Granulocyte Percent A 1.1 % (0-0.5); Lymphocytes Absolute Auto 1.79 K/mm3 (0.9-3.2); Lymphocytes Percent Auto 25.7 % (18.3-44.2); Mean Corpuscular HGB Conc 31.9 g/dl (32-36); Mean Corpuscular Hemoglobin 29.1 pg (26-34); Mean Corpuscular Volume 91.2 fl (80-100); Mean Platelet Volume 9.2 fl (7.4-10.4); Monocytes Absolute Auto 0.6 K/mm3 (0.1-0.6); Monocytes Percent Auto 8.5 % (2.6-8.5); Neutrophils Percent Auto 57.9 % (45.5-73.1); Platelet Count Result 187 k/mm3 (150-375); Red Blood Count 3.75 M/mm3 (4.2-5.4); Red Cell Distribution Width 14.4 % (11.5-14.5)
[2024-04-23 06:07] LABS: Alanine Aminotransferase 48 U/L (6-35); Albumin Level 2.7 g/dL (3.5-5.1); Alkaline Phosphatase 141 U/L (38-126); Anion Gap 3 mmol/L (4-12); Aspartate Amino Transferase 64 U/L (14-36); Bilirubin,Total 0.9 mg/dL (0.2-1.3); Blood Urea Nitrogen 11 mg/dL (7-17); Calcium 8.7 mg/dL (8.4-10.2); Carbon Dioxide 28 mmol/L (22-30); Chloride 109 mmol/L (98-107); Estimated CRCL calculation 65 ml/min; Estimated Glomerular Filt Rate > 60; Glucose 141 mg/dL (65-110); Magnesium 1.9 mg/dL (1.6-2.3); Potassium 3.7 mmol/L (3.4-5.0); Sodium 140 mmol/L (137-145)
[2024-04-23] MEDS: CEFEPIME 2 GM/NS 50 ML 2 GM/50 ML BAG IVPB ×2 (08:47→19:42)
[2024-04-23] MEDS: PANTOPRAZOLE SODIUM IV 40 MG VIAL IV PUSH ×2 (08:48→19:42)
[2024-04-23 11:00] LABS: Glucose Point of Care 131 mg/dl (65-105)
[2024-04-23] MEDS: LACTATED RINGERS 1,000 ML 150 ML IV CONT (11:04)
--- NOTE | 2024-04-23 11:04 | SUR.PREOP ---
Dressing to right hip clean, dry, and intact. Offered to position pt off right side. Pt stated she is comfortable on her back.
[2024-04-23] MEDS: ceFAZolin 1 GM/NS 50 ML 1 GM/50 ML BAG IVPB (11:11)
--- NOTE | 2024-04-23 11:17 | WPDANESEPPF ---
Anes - Initial Pre Proc Eval Procedure: Operation Date: 04/23/24 15:00 Proposed Procedures p Percutaneous Endoscopic Gastrostomy - Kirill Leija MD Date/Time: 04/23/24 11:17 Surgeon: Teodora Barahona DO Pre Op Diagnosis: Hypernatremia, Encephalopathy, Pressure ulscers, U Patient Data Age: 78 Gender: F Height: 1.7 m Weight: 84.4 kg Last Vital Signs Temp 97.2 F L 04/23/24 11:02 Pulse 81 04/23/24 11:02 Resp 20 04/23/24 11:02 BP 120/78 04/23/24 11:02 Pulse Ox 94 04/23/24 11:02 O2 Del Method Room Air 04/23/24 11:02 O2 Flow Rate 2 04/17/24 09:10 FiO2 21 04/22/24 09:00 Allergies Allergy/AdvReac Type Severity Reaction Status Date / Time Sulfa (Sulfonamide Allergy Unknown Verified 04/23/24 10:59 Antibiotics) Home Medications Medication Instructions Recorded Confirmed Type acetaminophen 325 mg tablet 650 mg PO QID PRN Pain (Scale 04/15/24 04/15/24 History (Tylenol) Score 1-3) albuterol sulfate 90 mcg/actuation 2 puff inhalation TID 04/15/24 04/15/24 History aerosol inhaler citalopram 20 mg tablet 20 mg PO DAILY 04/15/24 04/15/24 History cyclobenzaprine 5 mg tablet 5 mg PO HS 04/15/24 04/15/24 History folic acid 1 mg tablet 1 mg PO DAILY 04/15/24 04/15/24 History methotrexate sodium 2.5 mg tablet See Rx Instructions .Route .COMPLEX 04/15/24 04/15/24 History omeprazole 40 mg capsule,delayed 40 mg PO DAILY 04/15/24 04/15/24 History release prednisone 5 mg tablet 5 mg PO BID 04/15/24 04/15/24 History tramadol 50 mg tablet 50 mg PO TID 04/15/24 04/15/24 History Laboratory Tests 04/22/24 04/22/24 04/22/24 12:27 18:36 23:32 WBC RBC Hgb Hct MCV MCH MCHC RDW Plt Count MPV Immature Gran % (Auto) Neut % (Auto) Lymph % (Auto) Preston % (Auto) Eos % (Auto) Baso % (Auto) Lymph # (Auto) Preston # (Auto) Eos # (Auto) Baso # (Auto) Abs Immat Gran (auto) Absolute Neuts (auto) Absolute Nucleated RBC Nucleated RBC % Sodium Potassium Chloride Carbon Dioxide Anion Gap BUN Creatinine Estim Creat Clear Calc Estimated GFR Glucose POC Capillary Glucose 154 H mg/dl 152 H mg/dl 143 H mg/dl (65-105) (65-105) (65-105) Calcium Magnesium Total Bilirubin AST ALT Alkaline Phosphatase Total Protein Albumin 04/23/24 04/23/24 04/23/24 05:51 05:53 10:57 WBC 7.0 K/mm3 (4.5-10.0) RBC 3.75 L M/mm3 (4.2-5.4) Hgb 10.9 L g/dL (12.0-15.0) Hct 34.2 L % (37.0-47.0) MCV 91.2 fl (80-100) MCH 29.1 pg (26-34) MCHC 31.9 L g/dl (32-36) RDW 14.4 % (11.5-14.5) Plt Count 187 k/mm3 (150-375) MPV 9.2 fl (7.4-10.4) Immature Gran % (Auto) 1.1 H % (0-0.5) Neut % (Auto) 57.9 % (45.5-73.1) Lymph % (Auto) 25.7 % (18.3-44.2) Preston % (Auto) 8.5 % (2.6-8.5) Eos % (Auto) 5.9 H % (0-4.4) Baso % (Auto) 0.9 % (0.2-1.2) Lymph # (Auto) 1.79 K/mm3 (0.9-3.2) Preston # (Auto) 0.6 K/mm3 (0.1-0.6) Eos # (Auto) 0.4 H K/mm3 (0-0.3) Baso # (Auto) 0.1 K/mm3 (0.0-0.1) Abs Immat Gran (auto) 0.08 H K/mm3 (0.00-0.031) Absolute Neuts (auto) 4.0 K/mm3 (1.3-6.7) Absolute Nucleated RBC 0.000 K/mm3 (0.0-0.012) Nucleated RBC % 0.0 % (0.0-0.2) Sodium 140 mmol/L (137-145) Potassium 3.7 mmol/L (3.4-5.0) Chl
--- NOTE | 2024-04-23 11:20 | PCNFU ---
Nutrition Follow-Up Complete: Increased nutrient needs related to alterted skin integrity as evidenced by noted pressure injuries Swallowing difficulties related to dysphagia as evidenced by speech therapy and MBS results recommending NPO at this time. Goal: Meet estimated needs Pt current nutrition is NPO. Nutrition recommendation: Initiate TF of Jevity 1.2 at 10mL/hr, advancing 10 mL every 4-6 hours as tolerated to goal rate of 60mL/hr. TF Rx at goal will provide 1584 kcal (meeting 95% of estimated energy needs), 73g protein (meeting 140% of estimated protein needs) and 1065 mL free H20. 160mL water flush every 6 hours; adjust prn to maintain hydration. Replace electrolytes prn. Monitor need for a daily stool aid. Add Kan BID via G-tube for wound healing. Last recorded weight is 84.4 kg. Weight down 3.8 kg/4% x 8 days. Bowel Motility: abd soft. Last BM 04/19. Labs Reviewed: Hgb 10.9, Hct 34.2, glucose 141 Meds Noted: Prednisone, Novolog, Protonix, folic acid Skin: left hip abrasion, left heel blister, right hip pressure ulcer/right medial buttocks/right posterior shoulder - unstageable Additional Notes: NG pulled out x 3. Patient had MBS yesterday with aspiration noted. Speech recommended honey thick liquids, no foods. Patient agreeable to G-tube placement today. MAP 85. Edema: +1 bilateral lower legs. Monitor diet orders, intake, wt, labs, skin. Follow up in 3 days.
--- NOTE | 2024-04-23 12:10 | SUR.OPER ---
1209 Lidocaine 1% from PEG kit injected to g- tube site 3 ml lot # [id number] exp 04/2027
--- NOTE | 2024-04-23 15:38 | P.PNIM_ITS ---
Progress Note: A&P Assessment and Plan (1) Acute hypoxic respiratory failure: Code(s): J96.01 - Acute respiratory failure with hypoxia Status: Acute Assessment and Plan: * Quad viral screen negative on admission. CT chest showed no acute abnormalities. Revealed lingular nodule 8 mm and most likely benign multinodular goiter both to be followed up outpatient. * on 04/16 nighttime patient noted to be hypoxic and required BiPAP. VBG showed 7.37/49/67 on 1 L (specimen not fully resulted per respiratory therapist. This is not been entered into the system. Unsure the reliability of this.) * On room air now. Resolved (2) Encephalopathy acute: Code(s): G93.40 - Encephalopathy, unspecified Status: Acute Assessment and Plan: * Grandson reportedly interacts with the patient intermittently over the past few years. He has reported she does confabulate at times. Suspect there is some chronicity to her encephalopathy/neurocognitive disorder. CT head on admission demonstrating extra-axial mass partially calcified mass and left frontal lobe measuring 3.4 x 2 cm. Frontotemporal dementia? Dr. West assumed care on 04/17 and on first visit the patient makes lorrieReddit leija noises at him. She also confabulates and has flight of speech. Per notes, ER provide discussed CT of the head findings with Neurosurgery at [place]. They felt it was not acute and was not the cause for the patient's encephalopathy. They felt with lack of vasogenic edema that it was a chronic finding. Patient does not have headache or vision changes. * TSH normal. Urine drug screen negative. B12 and folate levels high. Ammonia, salicylates, acetaminophen, HIV, RPR screens all negative. * SSRI withdrawal? Lupus cerebritis? Iatrogenic effect of prednisone? Less likely * Acute etiology could include UTI/bacteremia. So far bottle blood culture growing Gram-negative bacilli. Continue cefepime and vancomycin. * The patient also presents with hypernatremia can cause encephalopathy * On modified barium swallow the patient was aspirating. NG-tube placed on 04/16. Continue tube feeds with free water flushes per Nephrology. Repeat MBS today on 04/18 * Per medication rec she takes cyclobenzaprine and tramadol home for arthritis. Hold these. If the patient becomes unmanageable then physical restraints are 1st indicated. Pharmacological restraints will only obstruct her mental evaluation. * 04/18 her pleasant confusion is consistent. Attempting to obtain MRI. If her acute issues such as bacteremia/UTI are appropriately treated and she continues to be encephalopathic than a psychiatric eval and placement is reasonable. * Brain MRI with 3.8 cm meningioma anterior to the frontal lobes. Add Seroquel at night sleep which she has not reviewed because npo and loosing ng tube (3) Ground-level fall: Code(s): W18.30XA - Fall on same level, unspecified, initial encounter Status: Acute Assessment and Plan: Patient has fall of indeterminate duration with mild elevation in CK but not concerning fo rhabdomyolysis. TCK 225 -> 143. Fall precautions. PT/OT (4) Pressure ulcer: Qualifiers: Laterality: right Pressure injury location: buttock Pressure injury stage: unstageable Qualified Code(s): L89.310 - Pressure ulcer of right buttock, unstageable Code(s): L89.90 - Pressure ulcer of unspecified site, unspecified stage Status: Acute Assessment and Plan: Patient has multiple wounds noted related to her being down for a prolonged period. information assoc to evaluate Continue routine wound care
[2024-04-23 17:13] LABS: Glucose Point of Care 136 mg/dl (65-105)
[2024-04-23] MEDS: QUEtiapine FUMARATE 12.5 MG TABLET PO (19:40)
[2024-04-23] MEDS: ACETAMINOPHEN 325 MG TABLET 650 MG PO (19:40)
[2024-04-24 00:01] LABS: Glucose Point of Care 142 mg/dl (65-105)
[2024-04-24 04:04] VITALS: BP 108/79; PULSE 77; RESP 20; TEMP 36.5; O2SAT 92
[2024-04-24 04:52] LABS: Basophils Absolute Auto 0.1 K/mm3 (0.0-0.1); Basophils Percent Auto 0.7 % (0.2-1.2); Eosinophils Absolute Auto 0.4 K/mm3 (0-0.3); Eosinophils Percent Auto 5.9 % (0-4.4); Hemoglobin 11.3 g/dL (12.0-15.0); Immature Granulocyte Absolute 0.06 K/mm3 (0.00-0.031); Immature Granulocyte Percent A 0.9 % (0-0.5); Lymphocytes Absolute Auto 1.68 K/mm3 (0.9-3.2); Lymphocytes Percent Auto 24.1 % (18.3-44.2); Mean Corpuscular HGB Conc 32.3 g/dl (32-36); Mean Corpuscular Hemoglobin 29.7 pg (26-34); Mean Corpuscular Volume 91.9 fl (80-100); Mean Platelet Volume 9.3 fl (7.4-10.4); Monocytes Absolute Auto 0.7 K/mm3 (0.1-0.6); Monocytes Percent Auto 9.5 % (2.6-8.5); Neutrophils Absolute Auto 4.1 K/mm3 (1.3-6.7); Neutrophils Percent Auto 58.9 % (45.5-73.1); Platelet Count Result 165 k/mm3 (150-375); Red Blood Count 3.81 M/mm3 (4.2-5.4); Red Cell Distribution Width 15.5 % (11.5-14.5)
[2024-04-24 05:04] LABS: Alanine Aminotransferase 37 U/L (6-35); Albumin Level 2.7 g/dL (3.5-5.1); Alkaline Phosphatase 138 U/L (38-126); Anion Gap 4 mmol/L (4-12); Aspartate Amino Transferase 54 U/L (14-36); Bilirubin,Total 0.8 mg/dL (0.2-1.3); Blood Urea Nitrogen 11 mg/dL (7-17); Calcium 8.8 mg/dL (8.4-10.2); Carbon Dioxide 27 mmol/L (22-30); Chloride 109 mmol/L (98-107); Estimated CRCL calculation 57 ml/min; Estimated Glomerular Filt Rate > 60; Glucose 169 mg/dL (65-110); Magnesium 1.9 mg/dL (1.6-2.3); Potassium 3.7 mmol/L (3.4-5.0); Sodium 140 mmol/L (137-145)
[2024-04-24 06:15] LABS: Glucose Point of Care 181 mg/dl (65-105)
[2024-04-24 07:12] VITALS: O2SAT 93
--- NOTE | 2024-04-24 08:04 | PC.NURSE ---
Called pharmacy to verify Methotrexate 10 mg can be crushed (administer with PEG tube) and pantoprazole for 0900 medication administration. Per pharmacy, ok to crush and pantoprazole does not need to be held.
[2024-04-24] MEDS: predniSONE 5 MG TABLET PO (08:34)
[2024-04-24] MEDS: HEPARIN SODIUM 5,000 UNITS/ML VIAL 5000 UNITS SUB-Q ×2 (08:34→20:09)
[2024-04-24] MEDS: PANTOPRAZOLE SODIUM IV 40 MG VIAL IV PUSH (08:34)
[2024-04-24] MEDS: FOLIC ACID 1 MG TABLET PO (08:34)
[2024-04-24] MEDS: CEFEPIME 2 GM/NS 50 ML 2 GM/50 ML BAG IVPB ×2 (08:38→20:08)
[2024-04-24 08:50] VITALS: O2SAT 93
[2024-04-24] MEDS: METHOTREXATE 2.5 MG TAB (*CHEMO) 10 MG PO (09:30)
--- NOTE | 2024-04-24 11:41 | PM.IMPN ---
Progress Note: A&P Assessment and Plan (1) Dysphagia: Code(s): R13.10 - Dysphagia, unspecified Status: Acute Assessment and Plan: She failed swallow evaluation repeatedly. Gtube placement was recommended. Patient and family agreeable. GI consulted and G-tube placed on 04/23/24. TF started. Change medications to GTube route Okay for honey thickened liquids for comfort. Stop IV fluids (2) Acute hypoxic respiratory failure: Code(s): J96.01 - Acute respiratory failure with hypoxia Status: Acute Assessment and Plan: Patient noted to be hypoxic. Hypoxia was difficult to control and ultimately she needed BiPAP. VBG showed 7.37/49/67 on [address] showed no acute abnormalities. There was 8 mm lingular nodule and will need follow-up in 3 months. Weaned off BiPAP and on room air now. Resolved (3) Encephalopathy acute: Code(s): G93.40 - Encephalopathy, unspecified Status: Acute Assessment and Plan: Grandson reportedly interacts with the patient intermittently over the past few years. He has reported she does confabulate at times. Suspect there is some chronicity to her encephalopathy/neurocognitive disorder. CT head on admission demonstrating extra-axial mass partially calcified mass and left frontal lobe measuring 3.4 x 2 cm. ER spoke with Neurosurgery at [place] but felt not acute and was not the cause for the patient's encephalopathy. TSH normal. Urine drug screen negative. B12 and folate levels high. Ammonia, salicylates, acetaminophen, HIV, RPR screens all negative. Brain MRI with 3.8 cm meningioma anterior to the frontal lobes. Acute etiology could include UTI/bacteremia. Consider also related hypernatremia On modified barium swallow the patient was aspirating. NG-tube placed on 04/16. Consider medications: cyclobenzaprine and tramadol at home for arthritis. These were held Dr. West assumed care on 04/17 and on first visit the patient makes lorrie eral leija noises at him. She also confabulates and has flight of speech. 04/18, she was pleasantly confused. Added Seroquel at night sleep which she received last night Better today. Continue to monitor (4) Ground-level fall: Code(s): W18.30XA - Fall on same level, unspecified, initial encounter Status: Acute Assessment and Plan: Patient had a fall and was down for an indeterminate duration with mild elevation in CK but not concerning fo rhabdomyolysis. TCK 225 -> 143. Fall precautions. PT/OT (5) Pressure ulcer: Qualifiers: Laterality: right Pressure injury location: buttock Pressure injury stage: unstageable Qualified Code(s): L89.310 - Pressure ulcer of right buttock, unstageable Code(s): L89.90 - Pressure ulcer of unspecified site, unspecified stage Status: Acute Assessment and Plan: Patient has multiple wounds noted related to her being down for a prolonged period. bait man following Continue routine wound care (6) UTI (urinary tract infection): Code(s): N39.0 - Urinary tract infection, site not specified Status: Acute Assessment and Plan: UA is consistent with UTI. Procalcitonin is 0.1. CRP 12. White count was up to 14 K which is now resolved and could be due to prednisone use. Lactic acid 2.9 but repeat was normal. Cefepime and vancomycin started on admission. 04/15: Urine culture growing E coli. Susceptibilities noted 04/15: BCx 1/2 sets (both aerobic and anerobic) growing Enterobacter closure a complex, susceptible to cefepime 04/17: Repeat blood cultures negative On 04/18 vancomycin has been discontinued. Cefepime was continued Continue cefepime for bacteremia, particularly 10-14 days course (day 8 from negative blood culture on 04/17) (7) QT prolongation: Code(s): R94.31 - Abnormal electrocardiogram [ECG] [EKG] Status: Acute Assessment and Plan: EKG showing sinus rhythm with PACs, franklyn
[2024-04-24 12:08] LABS: Glucose Point of Care 170 mg/dl (65-105)
[2024-04-24 14:00] VITALS: BP 102/59; PULSE 82; RESP 16; TEMP 37.1; O2SAT 99
[2024-04-24] MEDS: HYDROcodone/acetaminophen (*CRX) 5-325 MG TABLET 1 TAB FEED TUBE (15:42)
--- NOTE | 2024-04-24 16:45 | WPDGIPROGNO ---
Progress Note: A&P Assessment and Plan (1) Silent aspiration: Code(s): T17.900A - Unspecified foreign body in respiratory tract, part unspecified causing asphyxiation, initial encounter Status: Acute Assessment and Plan: tolerating g-tube (2) Dysphagia: Code(s): R13.10 - Dysphagia, unspecified Status: Acute (3) UTI (urinary tract infection): Code(s): N39.0 - Urinary tract infection, site not specified Status: Acute Assessment and Plan: on iv abx (4) Diabetes mellitus: Code(s): E11.9 - Type 2 diabetes mellitus without complications Status: Chronic Subjective Date/time seen: 04/24/24 16:45 Interval history: no events, egd with peg placement yesterday tolerating tube feeding at 60 ml/h Review of Systems Review of Systems: All systems reviewed & are unremarkable except as noted in HPI and below Exam Const: General: comfortable and no acute distress HENMT: Face/Nose/Sinus: Normal nares present Eyes: General: appearance normal, both eyes and all related structures Neck: Neck: supple Resp: Auscultation: no crackles and no wheezes Cardio: Rate: regular rate Rhythm: regular rhythm GI: Inspection: non-distended GI Palp: Yes Soft to palpation and No Tenderness to palpation present (GI) Other: g-tube looks ok, binder in place Skin: General skin exam: normal color Neuro: Speech: normal speech Motor exam (neuro): 5/5 motor strength present throughout Extrem: General: normal to inspection Psych: Mental Status: mental status grossly normal Objective Data Vital Signs Vital Signs: Vital Signs - 24 hr 04/23/24 19:33 04/23/24 20:00 04/24/24 04:04 Temperature 98 F 97.7 F Pulse Rate 81 77 Respiratory Rate 18 20 Blood Pressure 142/54 H 108/79 Pulse Oximetry 95 92 Oxygen Delivery Room Air Fraction of Inspired Oxygen 04/24/24 07:12 04/24/24 08:50 04/24/24 14:00 Temperature 98.7 F Pulse Rate 82 Respiratory Rate 16 Blood Pressure 102/59 L Pulse Oximetry 93 93 99 Oxygen Delivery Room Air Room Air Fraction of Inspired Oxygen 21 Intake/Output Intake/Output: Intake & Output 04/21/24 04/22/24 04/23/24 04/24/24 23:59 23:59 23:59 23:59 Intake Total 100 2100 1350.0 775 Output Total 1500 1800 800 0 Balance -1400 300 550 775 Meds/Results Medications: Active Medications Generic Name Dose Route Start Last Admin Trade Name Freq PRN Reason Stop Dose Admin Acetaminophen 650 mg 04/24/24 12:17 Acetaminophen 325 Mg Tablet FEED TUBE QID PRN Pain pain 1-5 or fever Hydrocodone Bitart/Acetaminophen 1 tab 04/24/24 12:14 04/24/24 15:42 Hydrocodone/Acetaminophen (*Crx) 5-325 Mg Tablet FEED TUBE 1 tab Q6H PRN Administration Pain Rated 6 or Greater Dextrose 12.5 gm 04/17/24 09:08 Dextrose 50% 25 Gm/50 Ml Syringe IV PUSH PRN PRN Hypoglycemia Protocol Folic Acid 1 mg 04/25/24 09:00 Folic Acid 1 Mg Tablet FEED TUBE DAILY [facility] Glucagon 1 mg 04/17/24 09:08 Glucagon For Inj 1 Mg Vial IM PRN PRN Hypoglycemia Protocol Glucose 15 gm 04/17/24 09:08 Glucose Oral Gel 15 Gm Of Glucse In 37.5 Gm Tube PO PRN PRN Hypoglycemia Protocol Heparin Sodium (Porcine) 5,000 units 04/16/24 09:00 04/24/24 08:34 Heparin Sodium 5,000 Units/Ml Vial SUB-Q 5,000 units Q12HR [facility] Administration Dextrose 1,000 mls @ 100 mls/hr 04/17/24 09:08 Dextrose 5% 1,000 Ml IVPB PRN PRN Hypoglycemia Protocol Cefepime HCl 2 gm in 50 mls @ 100 mls/hr 04/17/24 13:30 04/24/24 08:38 Maxipime 2 Gm/Ns 50 Ml IVPB 100 mls/hr Q12HR [facility] Administration Insulin Aspart 2 - 5 units 04/18/24 00:00 04/24/24 12:00 Insulin Aspart (*Bkc) 100 Units/Ml SUB-Q Not Given Q6HR [facility] Protocol Lansoprazole 30 mg 04/25/24 06:30 Lansoprazole Odt 30 Mg Tab.Rap.Dr FEED TUBE DAILY@0630 [facility] Methotrexate 10
[2024-04-24 17:02] LABS: Glucose Point of Care 172 mg/dl (65-105)
[2024-04-24] MEDS: predniSONE 5 MG TABLET FEED TUBE (18:09)
[2024-04-24 20:07] VITALS: BP 119/80; PULSE 78; RESP 18; TEMP 36.9; O2SAT 98
[2024-04-24] MEDS: METHOTREXATE 2.5 MG TAB (*CHEMO) 10 MG FEED TUBE (20:11)
[2024-04-24] MEDS: QUEtiapine FUMARATE 12.5 MG TABLET FEED TUBE (20:12)
[2024-04-24 23:50] LABS: Glucose Point of Care 159 mg/dl (65-105)
[2024-04-25 05:04] VITALS: BP 122/47; PULSE 85; RESP 18; TEMP 36.6; O2SAT 97
[2024-04-25 05:19] LABS: Glucose Point of Care 172 mg/dl (65-105)
[2024-04-25 05:34] LABS: Albumin Level 2.9 g/dL (3.5-5.1); Anion Gap 4 mmol/L (4-12); Blood Urea Nitrogen 16 mg/dL (7-17); Calcium 8.8 mg/dL (8.4-10.2); Carbon Dioxide 28 mmol/L (22-30); Chloride 105 mmol/L (98-107); Estimated CRCL calculation 65 ml/min; Estimated Glomerular Filt Rate > 60; Glucose 170 mg/dL (65-110); Magnesium 1.8 mg/dL (1.6-2.3); Potassium 4.1 mmol/L (3.4-5.0); Sodium 137 mmol/L (137-145)
[2024-04-25] MEDS: LANSOPRAZOLE ODT 30 MG TAB.RAP.DR FEED TUBE (06:54)
[2024-04-25 08:32] LABS: Glucose Point of Care 157 mg/dl (65-105)
[2024-04-25] MEDS: predniSONE 5 MG TABLET FEED TUBE (08:57)
[2024-04-25] MEDS: HEPARIN SODIUM 5,000 UNITS/ML VIAL 5000 UNITS SUB-Q (08:57)
[2024-04-25] MEDS: FOLIC ACID 1 MG TABLET FEED TUBE (08:57)
[2024-04-25] MEDS: CEFEPIME 2 GM/NS 50 ML 2 GM/50 ML BAG IVPB (10:22)
--- NOTE | 2024-04-25 10:26 | PCNFU ---
Nutrition Follow-Up Complete: Increased nutrient needs related to alerted skin integrity as evidenced by noted pressure injuries Swallowing difficulties related to dysphagia as evidenced by speech therapy and MBS results recommending NPO at this time. Goal: Meet estimated needs patient is progressing towards goal. We will continue current goal. Pt current nutrition is Jevity 1.2 at 60 ml/hr/Moderately Thick liquids, Level 3. Nutrition Recommendations: Kan BID Last recorded weight is 85.6 kg, down from 87 kg on admit. Bowel Motility: +BM reported 04/24 Labs Reviewed:Glu 170, Alb 2.9 Meds Noted:Protonix, Folic Acid Skin: unstageable pressure ulcer-buttock, Stage II pressure ulcer-shoulder. Additional Notes: Spoke with patient today. Tolerating tube feedings well of Jevity 1.2 at 60 ml/hr with flush of 175 ml q 4 hours. Patient has not drank any thickened liquids at this time. orders for Kan BID flush for wound healing. Agree with diet orders. Monitor diet orders, intake, wt, labs, skin. Follow up every Monday and Monday.
[2024-04-25 12:08] LABS: Glucose Point of Care 195 mg/dl (65-105)
--- NOTE | 2024-04-25 12:20 | WPDGIPROGNO ---
Progress Note: A&P Assessment and Plan (1) Silent aspiration: Code(s): T17.900A - Unspecified foreign body in respiratory tract, part unspecified causing asphyxiation, initial encounter Status: Acute Assessment and Plan: tolerating g-tube with feeding at goal peg care as usual will sign off dispo by primary (2) Dysphagia: Code(s): R13.10 - Dysphagia, unspecified Status: Acute (3) UTI (urinary tract infection): Code(s): N39.0 - Urinary tract infection, site not specified Status: Acute Assessment and Plan: on iv abx (4) Diabetes mellitus: Code(s): E11.9 - Type 2 diabetes mellitus without complications Status: Chronic Subjective Date/time seen: 04/25/24 12:20 Interval history: no new events and tolerating tube feeding at goal, patient is comfortable Review of Systems Review of Systems: All systems reviewed & are unremarkable except as noted in HPI and below Exam Const: General: comfortable and no acute distress HENMT: Face/Nose/Sinus: Normal nares present Eyes: General: appearance normal, both eyes and all related structures Neck: Neck: supple Resp: Auscultation: no crackles and no wheezes Cardio: Rate: regular rate Rhythm: regular rhythm GI: Inspection: non-distended GI Palp: Yes Soft to palpation and No Tenderness to palpation present (GI) Other: g-tube looks ok, binder in place Skin: General skin exam: normal color Neuro: Speech: normal speech Motor exam (neuro): 5/5 motor strength present throughout Extrem: General: normal to inspection Psych: Mental Status: mental status grossly normal Objective Data Vital Signs Vital Signs: Vital Signs - 24 hr 04/24/24 14:00 04/24/24 20:07 04/24/24 20:00 Temperature 98.7 F 98.5 F Pulse Rate 82 78 Respiratory Rate 16 18 Blood Pressure 102/59 L 119/80 Pulse Oximetry 99 98 Oxygen Delivery Room Air 04/25/24 05:04 04/25/24 09:10 Temperature 97.8 F Pulse Rate 85 Respiratory Rate 18 Blood Pressure 122/47 L Pulse Oximetry 97 Oxygen Delivery Room Air Intake/Output Intake/Output: Intake & Output 04/22/24 04/23/24 04/24/24 04/25/24 23:59 23:59 23:59 23:59 Intake Total 2100 1350.0 875 Output Total 1800 800 0 800 Balance 300 550 875 -800 Meds/Results Medications: Active Medications Generic Name Dose Route Start Last Admin Trade Name Alejandro PRN Reason Stop Dose Admin Acetaminophen 650 mg 04/24/24 12:17 Acetaminophen 325 Mg Tablet FEED TUBE QID PRN Pain pain 1-5 or fever Hydrocodone Bitart/Acetaminophen 1 tab 04/24/24 12:14 04/24/24 15:42 Hydrocodone/Acetaminophen (*Crx) 5-325 Mg Tablet FEED TUBE 1 tab Q6H PRN Administration Pain Rated 6 or Greater Dextrose 12.5 gm 04/17/24 09:08 Dextrose 50% 25 Gm/50 Ml Syringe IV PUSH PRN PRN Hypoglycemia Protocol Folic Acid 1 mg 04/25/24 09:00 04/25/24 08:57 Folic Acid 1 Mg Tablet FEED TUBE 1 mg DAILY [facility] Administration Glucagon 1 mg 04/17/24 09:08 Glucagon For Inj 1 Mg Vial IM PRN PRN Hypoglycemia Protocol Glucose 15 gm 04/17/24 09:08 Glucose Oral Gel 15 Gm Of Glucse In 37.5 Gm Tube PO PRN PRN Hypoglycemia Protocol Heparin Sodium (Porcine) 5,000 units 04/16/24 09:00 04/25/24 08:57 Heparin Sodium 5,000 Units/Ml Vial SUB-Q 5,000 units Q12HR [facility] Administration Dextrose 1,000 mls @ 100 mls/hr 04/17/24 09:08 Dextrose 5% 1,000 Ml IVPB PRN PRN Hypoglycemia Protocol Insulin Aspart 2 - 5 units 04/18/24 00:00 04/25/24 12:10 Insulin Aspart (*Bkc) 100 Units/Ml SUB-Q Not Given Q6HR [facility] Protocol Lansoprazole 30 mg 04/25/24 06:30 04/25/24 06:54 Lansoprazole Odt 30 Mg Tab.Rap.Dr FEED TUBE 30 mg DAILY@0630 [facility] Administration Levofloxacin 750 mg 04/25/24 21:00 Levofloxacin 750 Mg Tablet PO 04/26/24 21:01 DAILY@2100 [facility] Methotrexate 10 mg 0
--- NOTE | 2024-04-25 12:52 | PM.DS ---
DS: Admitting Diagnosis Discharge Date 04/25/24 Admitting Diagnosis Fall DS: Discharge Diagnosis Discharge Diagnosis (1) Dysphagia: Code(s): R13.10 - Dysphagia, unspecified Status: Acute (2) Acute hypoxic respiratory failure: Code(s): J96.01 - Acute respiratory failure with hypoxia Status: Acute (3) Encephalopathy acute: Code(s): G93.40 - Encephalopathy, unspecified Status: Acute (4) Ground-level fall: Code(s): W18.30XA - Fall on same level, unspecified, initial encounter Status: Acute (5) Pressure ulcer: Qualifiers: Laterality: right Pressure injury location: buttock Pressure injury stage: unstageable Qualified Code(s): L89.310 - Pressure ulcer of right buttock, unstageable Code(s): L89.90 - Pressure ulcer of unspecified site, unspecified stage Status: Acute (6) UTI (urinary tract infection): Code(s): N39.0 - Urinary tract infection, site not specified Status: Acute (7) QT prolongation: Code(s): R94.31 - Abnormal electrocardiogram [ECG] [EKG] Status: Acute (8) Lupus: Code(s): M32.9 - Systemic lupus erythematosus, unspecified Status: Acute (9) COPD (chronic obstructive pulmonary disease): Qualifiers: COPD type: unspecified COPD Qualified Code(s): J44.9 - Chronic obstructive pulmonary disease, unspecified Code(s): J44.9 - Chronic obstructive pulmonary disease, unspecified Status: Acute (10) Depression: Code(s): F32.A - Depression, unspecified Status: Acute (11) Diabetes mellitus: Code(s): E11.9 - Type 2 diabetes mellitus without complications Status: Chronic (12) Urinary retention: Code(s): R33.9 - Retention of urine, unspecified Status: Acute (13) Acute hypernatremia: Code(s): E87.0 - Hyperosmolality and hypernatremia Status: Acute (14) Acute hypokalemia: Code(s): E87.6 - Hypokalemia Status: Acute (15) Meningioma: Code(s): D32.9 - Benign neoplasm of meninges, unspecified Status: Acute DS: Summary Hospital Course Reason for hospitalization: 78yo female with SLE on chronic seroids, RA, DM and COPD here after being found down. Please see H&P for details. Hospital Course: Patient lives home alone. She had a fall and was down for an indeterminate duration with mild elevation in CK but not concerning for rhabdomyolysis. She worked with PT/OT. She was confused fwlt to have an acute encephalopathy. Grandson reportedly interacts with the patient intermittently over the past few years. He reported she does confabulate at times. Suspect there is some chronicity to her encephalopathy/neurocognitive disorder. CT head on admission demonstrating extra-axial mass partially calcified mass and left frontal lobe measuring 3.4 x 2 cm. ER spoke with Neurosurgery at [place] but felt not acute and was not the cause for the patient's encephalopathy. TSH normal. Urine drug screen negative. B12 and folate levels high. Ammonia, salicylates, acetaminophen, HIV, RPR screens all negative. Brain MRI with 3.8 cm meningioma anterior to the frontal lobes. Acute etiology could include UTI/bacteremia. Consider also related hypernatremia. On modified barium swallow the patient was aspirating. NG-tube placed on 04/16. She failed swallow evaluation repeatedly. Gtube placement was recommended. Patient and family agreeable. GI consulted and G-tube placed on 04/23/24. Tube feedings started. She remained pleasantly confused. We added Seroquel at night for sleep which she tolerated well. Patient noted to be hypoxic. Hypoxia was difficult to control and ultimately she needed BiPAP. VBG showed 7.37/49/67 on [address] showed no acute abnormalities. There was 8 mm lingular nodule and will need follow-up in 3 months. She was weaned off BiPAP and on room air now. Patient has multiple wounds noted related to her being down for a prolonged
--- NOTE | 2024-04-25 13:23 | ECG_ITS ---
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 Measurements Intervals [place] Rate: 98 P: 71 DE: 214 QRS: -31 QRSD: 80 T: 13 QT: 338 QTc: 433 Interpretive Statements SINUS RHYTHM WITH FIRST DEGREE AV BLOCK MARKED LEFT AXIS DEVIATION [QRS AXIS < -30] MINIMAL VOLTAGE CRITERIA FOR LVH, CONSIDER NORMAL VARIANT [MEETS CRITERIA IN ONE OF: R(aVL), S(V1), R(V5), R(V5/V6)+S(V1)] ANTEROSEPTAL MYOCARDIAL INFARCTION , OF INDETERMINATE AGE [40+ ms Q WAVE IN V1-V4] Compared to ECG 04/22/2024 12:30:25 NO SIGNIFICANT CHANGES Electronically Signed On 04-25-2024 13:52:38 CDT by Gerhard Courtney M.D.
[2024-04-25 15:11] LABS: SARS-CoV-2 RNA PCR Negative (Negative)
[2024-04-25 16:26] VITALS: O2SAT 97
[2024-04-25 17:31] LABS: Glucose Point of Care 149 mg/dl (65-105)
== END 2024-04-25 18:05 | DRG 871 ==
LOC: ANHED 21:31 → ANHIMU 21:59 → ANH3MED 04-18 22:46
PROVIDERS: General Practice; Internal Medicine; Internal Medicine Gastroenterology; Internal Medicine Nephrology; Admitting Provider Internal Medicine; Emergency Provider Student in an Organized Health Care Education/Training Program; PCP Internal Medicine; Visit Provider Internal Medicine
PROC: 0DH63UZ Insertion of Feeding Device into Stomach, Percutaneous Approach (ICD-10-PCS; CPT 43246; principal; 2024-04-23 15:00)
DX: R78.81 Bacteremia (principal); J96.01 Acute respiratory failure with hypoxia; L89.213 Pressure ulcer of right hip, stage 3; E87.0 Hyperosmolality and hypernatremia; G93.40 Encephalopathy, unspecified; N39.0 Urinary tract infection, site not specified; B96.89 Other specified bacterial agents as the cause of diseases classified elsewhere; E87.6 Hypokalemia; E86.1 Hypovolemia; M06.9 Rheumatoid arthritis, unspecified; Z79.52 Long term (current) use of systemic steroids; J44.9 Chronic obstructive pulmonary disease, unspecified; E11.9 Type 2 diabetes mellitus without complications; G47.33 Obstructive sleep apnea (adult) (pediatric); M32.9 Systemic lupus erythematosus, unspecified; D32.9 Benign neoplasm of meninges, unspecified; F32.A Depression, unspecified; R33.9 Retention of urine, unspecified; M16.0 Bilateral primary osteoarthritis of hip; R13.10 Dysphagia, unspecified; W18.30XA Fall on same level, unspecified, initial encounter; Z91.81 History of falling; B96.20 Unspecified Escherichia coli [E. coli] as the cause of diseases classified elsewhere; E04.2 Nontoxic multinodular goiter; M47.812 Spondylosis without myelopathy or radiculopathy, cervical region; T17.920A Food in respiratory tract, part unspecified causing asphyxiation, initial encounter; R94.31 Abnormal electrocardiogram [ECG] [EKG]
CPT/HCPCS: 36415; 36600; 43246; 70450; 70553; 71260; 72125; 72129; 72132; 73030; 73502; 74177; 80048; 80053; 80069; 80307; 81001; 82140; 82306; 82375; 82550; 82607; 82746; 82803; 82805; 82948; 83050; 83605; 83735; 84100; 84145; 84439; 84443; 84480; 84484; 85025; 85610; 85730; 86140; 86592; 86703; 87040; 87077; 87086; 87088; 87186; 87635; 87637; 90471; 90715; 92526; 92611; 93005; 94002; 94003; 96365; 96366; 96367; 96375; 97110; 97161; 97166; 97530; 97535; 99285; A9270; A9577; C9113; G0432; J0690; J0692; J1644; J1815; J1836; J1885; J2270; J2405; J2704; J3370; J3475; J3480; J7030; J7040; J7042; J7060; J7070; J7120; J7512; Q9967

== ENCOUNTER 2024-06-08 10:17 | Emergency (ER) | payer MEDICARE, SELFPAY ==
--- NOTE | ~2024-06-08 | XR_ITS ---
XR knee RT 3V 06/08/2024 12:20 Indication: Right knee pain after fall Procedure: 3 views right knee Comparison: No prior studies for comparison. Findings: There is severe osteoarthritis of the right knee, most advanced in the medial compartment. No fracture or traumatic malalignment. No significant joint effusion. No foreign bodies. Osteopenia. Impression: 1: Severe osteoarthritis of the right knee. Reviewed, dictated and finalized at location B. Impression: 1: Severe osteoarthritis of the right knee.
--- NOTE | ~2024-06-08 | XR_ITS ---
XR hip RT 2V w AP pelvis 06/08/2024 12:21 Indication: Hip pain after fall Procedure: 3 views right hip including AP pelvis Comparison: 04/15/2024 Findings: There is severe osteoarthritis of the hips, right greater than left. Pelvic rings are intac t. No fracture or traumatic malalignment. No focal soft tissue abnormality. No foreign bodies. Impression: 1: Severe osteoarthritis of the hips, right greater than left. Reviewed, dictated and finalized at location B. Impression: 1: Severe osteoarthritis of the hips, right greater than left.
--- NOTE | ~2024-06-08 | CT_ITS ---
EXAMINATION: CT brain wo con DATE: 06/08/2024 12:24 INDICATION: Trauma. Encephalopathy. TECHNIQUE: Computed tomography (CT) of the head was performed without intravenous contrast. The dose- length product was 605.33 mGy-cm. COMPARISON: CT dated 04/15/2024 and MRI dated 04/18/2024 FINDINGS: There is a partially calcified left frontal extra-axial mass measuring up to 3.8 cm, compat ible with meningioma, unchanged from prior examination. No ventriculomegaly or midline shift. Basilar cisterns are patent. Paranasal sinuses and mastoids are pneumatized. No depressed skull fractures. IMPRESSION: 1. No acute intracranial abnormality. 2: No significant change to partially calcified left frontal extra-axial mass, consistent with menin gioma. Reviewed, dictated and finalized at location B. IMPRESSION: 1. No acute intracranial abnormality. 2: No significant change to partially calcified left frontal extra-axial mass, consistent with meningioma.
--- NOTE | ~2024-06-08 | XR_ITS ---
XR elbow RT min 3V 06/08/2024 12:21 INDICATION: Right elbow pain after trauma PROCEDURE: 3 views right elbow COMPARISON: No prior studies for comparison. FINDINGS: Fracture, dislocation or subluxation is not identified. There is osteoarthritis of the elbo w. The soft tissues appear within normal limits. No foreign bodies are identified. IMPRESSION: 1: NO ACUTE BONE OR JOINT ABNORMALITY IDENTIFIED. Reviewed, dictated and finalized at location B.
--- NOTE | ~2024-06-08 | XR_ITS ---
XR shoulder RT min 2V 06/08/2024 12:22 Indication: Right shoulder pain after trauma Procedure: 3 views right shoulder Comparison: 04/15/2024 Findings: There is moderate right glenohumeral joint osteoarthritis. No fracture or traumatic malalig nment. No significant soft tissue abnormality. No foreign bodies. Impression: 1: Moderate osteoarthritis of the right glenohumeral joint. Reviewed, dictated and finalized at location B. Impression: 1: Moderate osteoarthritis of the right glenohumeral joint.
[2024-06-08 10:20] VITALS: BP 137/71; PULSE 99; RESP 17; TEMP 37.1; O2SAT 98
--- NOTE | 2024-06-08 13:18 | ED.FALL ---
HPI - Fall General Chief Complaint: Fall Stated Complaint: fall Time Seen by Provider: 06/08/24 11:33 History of Present Illness HPI Narrative: 78-year-old female presenting to the emergency department for evaluation after having a ground level fall. Patient states she does have balance issues at baseline. Patient reports chronic hip and knee pain. Patient reports she was attempting to stand from her wheelchair when she fell for landed on her right side injuring her right shoulder right elbow right hip and right knee. Patient was unsure if she struck her head. Patient states she does uses a wheelchair primarily but also consent times use canes and a Rollator. Related Data Allergies Allergy/AdvReac Type Severity Reaction Status Date / Time Sulfa (Sulfonamide Allergy Unknown Verified 04/23/24 10:59 Antibiotics) Review of Systems Review of Systems: All systems reviewed & are unremarkable except as noted in HPI and below PMFSH Past Medical History Medical History (Updated 06/08/24 @ 14:11 by Raul Guerra MD) Asthma Chronic anemia COPD (chronic obstructive pulmonary disease) Diabetes mellitus Glaucoma History of small bowel obstruction Kidney stones Lupus On chronic steroid Obstructive sleep apnea Rheumatoid arthritis Silent aspiration Surgical History Surgical History (Updated 04/16/24 @ 00:43 by Teodora Barahona DO) History of bowel resection Hx of cholecystectomy Status post cataract extraction of both eyes with insertion of intraocular lens Family History Family History Sibling Acute myocardial infarction Colon cancer Sibling Acute myocardial infarction Colon cancer Mother Acute myocardial infarction Social History Social History (Updated 04/16/24 @ 00:45 by Teodora Barahona DO) Social History: The patient lives in her own home. She is . She had 1 daughter who in 2005 of a heart attack. She is a lifelong nonsmoker and does not drink alcohol or use illicit substances. 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 Code status: Full code Healthcare power of die cut operator: Haris Holder Smoking status: Never smoker Alcohol intake: never Substance use: never Spiritual care concerns: No Exam Narrative: APPEARANCE: Well appearing, no pain, no distress, well-nourished. HEAD: normocephalic, atraumatic. EYES: PERRLA/EOMI, conjunctivae clear. NOSE: Normal no drainage EARS:TMS clear with good light reflex. THROAT: Pharynx clear, no exudate. NECK: Supple. No adenopathy, no masses. RESPIRATORY: Airway patent, respirations nonlabored. Clear to auscultation bilaterally, no rales, rhonchi, wheezing. CARDIOVASCULAR: Regular rate and rhythm without murmurs rubs or gallops. ABDOMINAL: Soft, nontender, nondistended, normal bowel sounds MUSCULOSKELETAL: Moves all extremities. Strength/ROM intact, No edema, No calf tenderness. NEURO: Alert. Cranial nerves II through XII intact. Good gait. Good coordination SKIN: Warm, dry. Normal Color PSYCHIATRIC: Normal affect/mood. Course Course Emergency Course: Patient was able to ambulate at her baseline. Vital Signs Vital signs: Vital Signs Temperature 98.8 F 06/08/24 10:20 Pulse Rate 99 06/08/24 10:20 Respiratory Rate 17 06/08/24 10:20 Blood Pressure 137/71 06/08/24 10:20 Pulse Oximetry 98 06/08/24 10:20 Oxygen Delivery Room Air 06/08/24 10:20 Temperature 98.8 F 06/08/24 10:20 Pulse Rate 76 06/08/24 13:49 Respiratory Rate 16 06/08/24 13:49 Blood Pressure 120/55 L 06/08/24 13:49 Pulse Oximetry 100 06/08/24 13:49 Oxygen Delivery Room Air 06/08/24 10:20 MDM - Fall MDM Narrative Medical decision making narrative: 78-year-old female presents emergency department for evaluation for shoulder pain, elbow pain, hip pain and knee pain after having a ground level fall. Patient was able to stand at the bedside per her baseline. X-ray
[2024-06-08 13:49] VITALS: BP 120/55; PULSE 76; RESP 16; O2SAT 100
[2024-06-08] MEDS: HYDROcodone/acetaminophen (*CRX) 5-325 MG TABLET 1 TAB PO (14:05)
== END 2024-06-08 16:31 ==
PROVIDERS: Emergency Provider Emergency Medicine; PCP Internal Medicine
DX: S49.91XA Unspecified injury of right shoulder and upper arm, initial encounter (principal); S59.901A Unspecified injury of right elbow, initial encounter; S79.911A Unspecified injury of right hip, initial encounter; S89.91XA Unspecified injury of right lower leg, initial encounter; L89.313 Pressure ulcer of right buttock, stage 3; J44.9 Chronic obstructive pulmonary disease, unspecified; E11.39 Type 2 diabetes mellitus with other diabetic ophthalmic complication; H42 Glaucoma in diseases classified elsewhere; D64.9 Anemia, unspecified; M06.9 Rheumatoid arthritis, unspecified; M32.9 Systemic lupus erythematosus, unspecified; G89.29 Other chronic pain; G47.33 Obstructive sleep apnea (adult) (pediatric); R26.89 Other abnormalities of gait and mobility; Z87.442 Personal history of urinary calculi; Z90.49 Acquired absence of other specified parts of digestive tract; Z96.1 Presence of intraocular lens; Z98.42 Cataract extraction status, left eye; Z98.41 Cataract extraction status, right eye; M19.011 Primary osteoarthritis, right shoulder; Z79.899 Other long term (current) drug therapy; W18.39XA Other fall on same level, initial encounter
CPT/HCPCS: 70450; 73030; 73080; 73502; 73562; 99284; A9270

== ENCOUNTER 2025-01-17 22:46 | Emergency (ER) | payer OTHER, SELFPAY ==
[2025-01-17 22:50] VITALS: BP 124/67; PULSE 102; RESP 16; TEMP 36.8; O2SAT 94
[2025-01-18] MEDS: TETANUS,DIPHTHERIA,AC PERTUSSIS ADULT (0.5 ML) BOOSTRIX IM (00:47)
[2025-01-18 01:05] VITALS: BP 130/71; PULSE 96; RESP 16; O2SAT 95
[2025-01-18] MEDS: MORPHINE SULFATE (*CRX) 4 MG/ML INJ IV PUSH (01:05)
[2025-01-18 01:30] LABS: Hematocrit 39.2 % (37.0-47.0); Mean Corpuscular HGB Conc 33.2 g/dl (32-36); Mean Corpuscular Volume 90.3 fl (80-100); Platelet Count Result 273 k/mm3 (150-375); Red Blood Count 4.34 M/mm3 (4.2-5.4); White Blood Count 25.3 K/mm3 (4.5-10.0)
[2025-01-18 01:40] LABS: Alanine Aminotransferase 31 U/L (6-35); Albumin Level 3.6 g/dL (3.5-5.1); Alkaline Phosphatase 113 U/L (38-126); Anion Gap 11 mmol/L (4-12); Aspartate Amino Transferase 36 U/L (14-36); Bilirubin,Total 1.8 mg/dL (0.2-1.3); Blood Urea Nitrogen 26 mg/dL (7-17); Calcium 9.3 mg/dL (8.4-10.2); Carbon Dioxide 27 mmol/L (22-30); Chloride 96 mmol/L (98-107); Estimated CRCL calculation 57 ml/min; Estimated Glomerular Filt Rate > 60; Glucose 230 mg/dL (65-110); Potassium 4.4 mmol/L (3.4-5.0); Sodium 134 mmol/L (137-145)
[2025-01-18 01:46] VITALS: BP 117/65; PULSE 94; RESP 25; O2SAT 96
[2025-01-18] MEDS: AMPICILLIN SULB 3 GM/NS 100 ML 3 GM/100 ML VIAL IVPB (01:46)
[2025-01-18 01:50] LABS: Band Neutrophils Percent 2 % (0-6); Basophils Absolute Manual 0.25 K/mm3 (0.0-0.1); Basophils Percent Manual 1 % (0-1); INR 1.2; Lymphocytes Absolute Manual 2.27 K/mm3 (1.1-4.5); Monocytes Percent Manual 2 % (3-9); Neutrophils Absolute Manual 22.26 K/mm3 (1.7-7.2); Neutrophils Percent Manual 86 % (46-73); Prothrombin Time 16.1 Seconds (11.1-14.7); Total Cells Counted 100
[2025-01-18 01:51] LABS: Anisocytosis 1+; Large Platelets Present; Partial Thromboplastin Time 27.5 Seconds (22.3-36.8); Platelet Estimate Adequate (Adequate); Schistocytes None Seen
[2025-01-18 01:53] LABS: Strep Group A RT-PCR NOT DETECTED (Negative)
--- NOTE | 2025-01-18 01:55 | ED.FALL ---
HPI - Fall General Chief Complaint: Fall Stated Complaint: fall out of wheelchair Time Seen by Provider: 01/17/25 23:48 History of Present Illness HPI Narrative: 79-year-old female with a past medical history including COPD, hypertension, lupus, chronic debility and wheelchair-bound. She presents to the emergency department for evaluation of facial trauma after falling out of a wheelchair. Patient is awake alert oriented at her baseline x4, C-collar in place by EMS. Patient is a good historian and states that she was trying to get out of her wheelchair and leaned forward and fell onto the ground. She normally transfers without in the help at the facility. She is not any blood thinner medications but has significant facial trauma and swelling around her nose, mouth, laceration on her lower left eyelid, missing dentition with most of her top front teeth missing and subluxations of the bottom row of teeth. She has evidence of bilateral epistaxis and posterior or pharyngeal hemorrhage that is since stopped. She is tolerating oral secretions, not any acute distress, no fever or chills. Denies any shortness a breath presently but states she was having difficulty breathing with the bleeding was happening. Does not know for tetanus is up today. She was brought back in the room 2. For trauma evaluation. Related Data Allergies Allergy/AdvReac Type Severity Reaction Status Date / Time Sulfa (Sulfonamide Allergy Unknown Verified 04/23/24 10:59 Antibiotics) Review of Systems Review of Systems: As reviewed above in HPI [facility] Past Medical History Medical History Silent aspiration Obstructive sleep apnea Asthma COPD (chronic obstructive pulmonary disease) Glaucoma Diabetes mellitus Chronic anemia Lupus On chronic steroid Rheumatoid arthritis Kidney stones History of small bowel obstruction Surgical History Surgical History Status post cataract extraction of both eyes with insertion of intraocular lens Hx of cholecystectomy History of bowel resection Family History Family History Sibling Acute myocardial infarction Colon cancer Sibling Acute myocardial infarction Colon cancer Mother Acute myocardial infarction Social History Social History Social History: The patient lives in her own home. She is . She had 1 daughter who in 2005 of a heart attack. She is a lifelong nonsmoker and does not drink alcohol or use illicit substances. 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 Code status: Full code Healthcare power of health care attorney: Haris Holder Smoking status: Never smoker Alcohol intake: never Substance use: never Spiritual care concerns: No Exam Narrative: GENERAL: Not in any acute distress, maintaining her airway, answering questions appropriately HEAD: Normocephalic, evidence of recent head trauma with bruising over the face and maxillary facial structures EYES: [PERRLA and EOMI.] ENT: Midface instability noted with the palate and maxillary sinuses, bilateral epistaxis without any active bleeding presently. Posterior or pharyngeal cavity with dried blood, no active bleeding. Subluxed bilateral front 2 teeth on the mandibular jaw, multiple missing teeth of the top row of the maxilla. Loose teeth noted both left and right maxilla. C-collar in place. NECK: Supple. CHEST: [Clear to auscultation. No respiratory distress.] HEART: [Regular rate and rhythm]. No murmur heard. [Normal peripheral pulses.] ABDOMEN: [Soft, nondistended], [nontender], [No rigidity or guarding] EXTREMITIES: Normal range of motion. [No edema.] SKIN: Warm, dry, no rash. NEURO: [No focal deficits]. Alert and oriented [x3.] PSYCH: [Normal mood and affect.] Course Vital Signs Vital signs: Vital Signs Temperature 36.8 C 01/17/25 22:50 Pulse Rate 102 H 01/17/25 22:50 Respiratory Rate 16 01/17/25 22:50 Blood Pressure 124/67 01/17/25 22:50 Pulse Oximetry 94 01/17/25 22:50 Oxygen Delivery Room Air 01/17/25 22:50 Temperature 36.8 C 01/17/25 22:50 Pulse Rate 94 01/18/25 01:46 Respiratory Rate 25 H 01/18/25 01:46 Blood Pressure 117/65 01/18/25 01:46 Pulse Oximetry 96 01/18/25 01:46 Oxygen Delivery Room Air 01/17/25 22:50 MDM - Fall MDM Narrative Medical decision making narrative: 79-year-old female presenting from group home facility for a mechanical fall. She states she fell out of her wheelchair when trying to transition to the bed. She fell face 1st and sustained a significant injury with resultant midface instability with the palate and maxillary sinuses, bilateral epistaxis without any active bleeding presently. Posterior oropharyngeal cavity with dried blood, no active bleeding. Subluxed bilateral front 2 teeth on the mandibular jaw, multiple missing teeth of the top row of the maxilla. Loose teeth noted both left and right maxilla. C-collar in place. She is maintaining her own airway and answering questions appropriately. Saturating 96% on room air. Mild tachycardia initially at 1:02 a.m.. Normal blood pressure. Not any blood thinner medications. She has a small laceration without any active bleeding outside of her left cheek as well. Considerations presently are for LeFort fracture, intracranial pathology such as a brain bleed, cervical spinal fracture. She states she also landed on her knees but has no visible signs of trauma to her knees. She is breathing comfortably. No signs of trauma to the trunk or base of the neck. C-collar maintained while imaging studies including CT facial bones, CT cervical spine, CT head and x-rays of the pelvis and hips were obtained. Patient's labs were ordered including CBC, CMP, PT, PTT, type and screen. For morphine was administered. CT report shows multiple facial and nasal bone fractures including fractures of the nasal bone, nasal septum, right anterior and posterior maxillary sinus as well as the left posterior maxillary sinus, floor of the left orbit, fracture of the bilateral medial and lateral pterygoid plates, hemorrhage into the bilateral maxillary sinuses. Consistent with LeFort II at minimum with some asymmetry. CT head shows no acute intracranial findings. There is an incidentally found calcified meningioma. CT cervical spine shows no fractures or malalignment. Patient is not actively hemorrhaging at this time and maintaining her own airway. She does have mid face instability with multiple traumatic injuries to her facial structures. I spoke to the transfer center at the [facility] system and she was made a trauma activation and transfer to [facility] and a direct ED to ED. I spoke to Dr. Pandey who accepted the patient for transfer. Ground ALS ambulance is were attempted however there is a significant delay greater than 3 hours in transitioning the patient and given her traumatic injuries and concern for potential airway if she has any recurrent bleeding she needs to be transferred emergently so air evac was contacted and patient was flown to [facility] at this time. Medical Records Attestation: I reviewed the patient's medical records. Lab Data Attestation: I reviewed the patient's lab results. 01/18/25 01:22 01/18/25 01:22 Labs: Lab Results 01/18/25 Range/Units 01:22 WBC 25.3 H (4.5-10.0) K/mm3 RBC 4.34 (4.2-5.4) M/mm3 Hgb 13.0 (12.0-15.0) g/dL Hct 39.2 (37.0-47.0) % MCV 90.3 (80-100) fl MCH 30.0 (26-34) pg MCHC 33.2 (32-36) g/dl RDW 14.0 (11.5-14.5) % Plt Count 273 D (150-375) k/mm3 MPV 9.0 (7.4-10.4) fl Immature Gran % (Auto) Not Reportable Neut % (Auto) Not Reportable Lymph % (Auto) Not Reportable Harrison % (Auto) Not Reportable Eos % (Auto) Not Reportable Baso % (Auto) Not Reportable Lymph # (Auto) Not Reportable Harrison # (Auto) Not Reportable Eos # (Auto) Not Reportable Baso # (Auto) Not Reportable Abs Immat Gran (auto) Not Reportable Absolute Neuts (auto) Not Reportable Absolute Nucleated RBC Not Reportable Total Counted 100 Neutrophils % (Manual) 86 H (46-73) % Band Neutrophils % 2 (0-6) % Lymphocytes % (Manual) 9.0 L (18-44) % Monocytes % (Manual) 2 L (3-9) % Basophils % (Manual) 1 (0-1) % Nucleated RBC % Not Reportable Abs Neuts (Manual) 22.26 H (1.7-7.2) K/mm3 Abs Lymphs (Manual) 2.27 (1.1-4.5) K/mm3 Abs Monocytes (Manual) 0.50 (0.1-0.90) K/mm3 Abs Basophils (Manual) 0.25 H (0.0-0.1) K/mm3 Platelet Estimate Adequate (Adequate) Large Platelets Present Anisocytosis 1+ Schistocytes None seen PT 16.1 H (11.1-14.7) Seconds INR 1.2 APTT 27.5 (22.3-36.8) Seconds Sodium 134 L (137-145) mmol/L Potassium 4.4 (3.4-5.0) mmol/L Chloride 96 L (98-107) mmol/L Carbon Dioxide 27 (22-30) mmol/L Anion Gap 11 (4-12) mmol/L BUN 26 H D (7-17) mg/dL Creatinine 0.68 L (0.7-1.0) mg/dL Estim Creat Clear Calc 57 ml/min Estimated GFR > 60 (59 - ) Glucose 230 H (65-110) mg/dL Calcium 9.3 (8.4-10.2) mg/dL Total Bilirubin 1.8 H (0.2-1.3) mg/dL AST 36 (14-36) U/L ALT 31 (6-35) U/L Alkaline Phosphatase 113 (38-126) U/L Total Protein 7.0 (6.3-8.2) g/dL Albumin 3.6 (3.5-5.1) g/dL Influenza A (RT-PCR) Pending Influenza B (RT-PCR) Pending RSV (RT-PCR) Pending SARS-CoV-2 RNA (RT-PCR) Pending Group A Strep (PCR) Not detected (Negative) Blood Type Pending Antibody Screen Pending Imaging Data Attestation: I personally reviewed and interpreted this imaging study as follows: My impression: Fractures the nasal bone, nasal septum, right anterior and posterior maxillary sinus fractures, left posterior maxillary sinus fracture, left orbital floor fracture, bilateral medial and lateral pterygoid plate fractures, maxillary sinus hemorrhages. No C-spine fracture, no CT head findings aside from a calcified meningioma. Critical Care Time Critical Care Time Critical Care Time: Yes Total Critical Care Time: 60 Discharge Plan Discharge Clinical Impression: LeFort II fracture, Ground-level fall, Extensive facial fractures, Epistaxis due to trauma Patient Disposition: Acute Care Hospital Condition: Serious Patient Language: Pashto Prescriptions: No Action methotrexate sodium 2.5 mg Tablet 10 mg feeding tube We@[id number],2100 Qty: 4 0RF levofloxacin 750 mg tablet 750 mg feeding tube QPM Qty: 2 0RF quetiapine [Seroquel] 25 mg tablet 12.5 mg feeding tube HS Qty: 10 0RF acetaminophen [Tylenol] 325 mg Tablet 650 mg feeding tube QID PRN (Reason: Pain (Scale Score 1-3)) Qty: 10 0RF prednisone 5 mg tablet 5 mg feeding tube BID Qty: 10 0RF omeprazole 40 mg capsule,delayed release(DR/EC) 40 mg feeding tube DAILY Qty: 10 0RF folic acid 1 mg tablet 1 mg feeding tube DAILY Qty: 10 0RF Follow-up/Referrals: Jan,MD Shawn [Primary Care Provider] - Time of Disposition: 02:04
[2025-01-18 02:05] LABS: Influenza A QL RT-PCR Negative (Negative); Influenza B QL RT-PCR Negative (Negative); RSV RNA, RT-PCR Negative (Negative); SARS-CoV-2 RNA PCR Negative (Negative)
== END 2025-01-18 02:03 | disposition short-term general hospital (02) ==
LOC: ANHED 23:57
PROVIDERS: Emergency Provider Student in an Organized Health Care Education/Training Program; PCP Internal Medicine
DX: S02.411A LeFort I fracture, initial encounter for closed fracture (principal); S02.2XXA Fracture of nasal bones, initial encounter for closed fracture; Z23 Encounter for immunization; Z20.822 Contact with and (suspected) exposure to COVID-19; J44.9 Chronic obstructive pulmonary disease, unspecified; I10 Essential (primary) hypertension; E11.39 Type 2 diabetes mellitus with other diabetic ophthalmic complication; H40.9 Unspecified glaucoma; H42 Glaucoma in diseases classified elsewhere; M32.9 Systemic lupus erythematosus, unspecified; M06.9 Rheumatoid arthritis, unspecified; D64.9 Anemia, unspecified; G47.33 Obstructive sleep apnea (adult) (pediatric); R53.81 Other malaise; Z87.442 Personal history of urinary calculi; Z99.3 Dependence on wheelchair; Z96.1 Presence of intraocular lens; Z98.42 Cataract extraction status, left eye; Z98.41 Cataract extraction status, right eye; Z90.49 Acquired absence of other specified parts of digestive tract; Z79.52 Long term (current) use of systemic steroids; W05.0XXA Fall from non-moving wheelchair, initial encounter; Z79.899 Other long term (current) drug therapy; M47.812 Spondylosis without myelopathy or radiculopathy, cervical region; E04.2 Nontoxic multinodular goiter; D32.0 Benign neoplasm of cerebral meninges; M16.0 Bilateral primary osteoarthritis of hip; M47.816 Spondylosis without myelopathy or radiculopathy, lumbar region; M17.11 Unilateral primary osteoarthritis, right knee
CPT/HCPCS: 36415; 70450; 70486; 72125; 72170; 73562; 80053; 85025; 85610; 85730; 86850; 86900; 86901; 87637; 87651; 90471; 90715; 96365; 96375; 99285; J0295; J2270

== ENCOUNTER 2025-03-14 09:51 | Outpatient (CLI) | payer MEDICARE, MEDICAID, SELFPAY ==
--- NOTE | ~2025-03-14 | MM_ITS ---
EXAMINATION: MM screening snehal BI w michelle HISTORY: Screening TECHNIQUE: Craniocaudal and mediolateral oblique 3-D tomosynthesis images were obtained and synthetic 2-D images were generated. CAD analysis was submitted and interpreted. COMPARISON: No prior mammogram is available for comparison at this institution. BREAST PARENCHYMAL COMPOSITION: Dense: The breasts are extremely dense, which lowers the sensitivity of mammography. FINDINGS: There is no evidence of suspicious mass, calcification, or architectural distortion to sugg est malignancy in either breast. There has been no suspicious interval change. IMPRESSION: 1. No mammographic evidence of malignancy. 2. Recommend routine screening mammography in one year. BI-RADS Category 1: Negative Reviewed, dictated and finalized at location A.
--- OUTSIDE RECORDS SUMMARY | 2025-03-14 10:11 | XMS_ITS | Data Portability ---
Author Organization [place] [facility], Main Office Address [address] [place] [address] Assessment Encounter Date Assessment Date Assessment LastModified by Organization Details LastModified Time 07/19/2023 07/19/2023 She needs to see the wound care ophthalmology blood work reviewed see me in 3 [email or web address] Not available 07/23/2023 14:58:47 10/18/2023 10/18/2023 Will continue current therapy follow-up 4 months [email or web address] Not available 10/28/2023 14:16:35 Plan of Treatment Reminders Order Date Submit Date Provider Last Modified By Organization Details Last Modified Time Details Appointments None recorded. Lab None recorded. Referral ophthalmolo gist referral 2022 023 [email or web address] [facility], [address], [place], [address], 4 18:18:25 wound care referral 2022 023 [facility], [address], [address], [place], [address], 3 10:44:41 Procedures None recorded. Surgeries None recorded. Imaging None recorded. Medication Orders None recorded. Patient TargetsNo targets recorded. Patient InstructionsNo instructions recorded. 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 Referring Physician: Nir Fraser, Internal Medicine, Encounter Date: 07/19/2023 Results Created Date Observation Date Name Description Value Unit Range Abnormal Flag Note LastModifiedBy Organization Detail LastModifiedTime 07/05/20 23 07/05/2023 LIPID PANEL cholesterol 197 mg/dL 140-19 9 NIH ERA NSUS RECOM MENDA TION FOR NATHAN STERO L: ADULT CHILD LOW RISK: <200 <170 BORDE RLINE : <200- 239 ----- HIGH RISK: >240 >200 Not Available [facility] (Lab) [address] [place], [address], 07/05/2023 16:46:42 07/05/20 23 07/05/2023 LIPID PANEL triglyceride s 99 mg/dL 0-150 NIH ERA NSUS REPOR T RECOM MENDA TION FOR TRIGL YCERI SYLVAIN: ADULT CHILD LOW RISK: <150 ----- BODER LINE: 150-1 99 ----- HIGH RISK: >200 ----- Not Available [facility] (Lab) [address] [place], [address], 07/05/2023 16:46:42 07/05/20 23 07/05/2023 LIPID PANEL HDL cholesterol 93 mg/dL 40- Not Available [facility] (Lab) [address] [place], [address], 07/05/2023 16:46:42 07/05/20 23 07/05/2023 LIPID PANEL LDL cholesterol, calculated 84 mg/dL 0-130 NIH ERA NSUS REPOR T RECOM MENDA TIONS FOR LDL: ADULT CHILD LOW RISK <130 <110 (OPTI MAL LDL) <100 ----- BORDE RLINE : 130-1 59 ----- HIGH RISK: >160 >130 A TRIGL YCERI DE RESUL T >400 INVAL IDATE S THE CALCU LATIO N FOR LDL FRACT IONAT ION - THE LDL RESUL T WILL NOT BE REPOR JUSTYNA. Not Available [facility] (Lab) [address] [place], [address], 07/05/2023 16:46:42 07/05/20 23 07/05/2023 HEMOG LOBIN A1C HA1C 7.4 % 4.0-6. 0 high Diabe lois Scree alber Crite tevin: <5.7% Consi stent with absen ce of diabe lois 5.7-6 .4% Consi stent with incre ased risk for diabe lois (pred iabet es) >OR=6 .5% Consi stent with diabe lois REFER ENCE: Diabe lois Care 2016, 39(Peres ppl.1 ):s13 -s22 Not Available [facility] (Lab) [address], [place], [address], 07/05/2023 20:54:32 Result Notes None recorded. Problems Name Problem SNOMED Code Status Onset Date Resolution Date Notes Provider Name and Address Organization Details Recorded Time Abnormalit y of nail of toe 550587574 Active 2022 Not Available [facility] 3 06:21:22 Tear of skin 195919841 Active 2022 Not Available [facility] 3 06:21:22 Visual disturbanc e 09115290 Active 2022 MARCELINO Powell null, [facility] 3 15:33:38 Open wound of left forearm 7996533068824 9101 Active 2022 ANA MARÍA Espinoza [address], [place], [address] , [facility] 3 18:04:24 Electrocar diogram abnormal 398298579 Active 2021 Not Available [facility] 3 06:21:22 Asthma-chr onic obstructiv e pulmonary disease overlap syndrome 1473453670878 9107 Active 2021 Not Available [facility] 3 06:21:22 Pain in throat 991993835 Active 2022 Not Available [facility] 3 06:21:22 Type 2 diabetes mellitus without complicati on 136610921 Active 2021 Not Available [facility] 3 06:21:22 Depressive disorder 92612147 Active Not Available [facility] 3 06:21:22 Fever 208739778 Active 2022 Not Available [facility] 3 06:21:22 Inflammato ry polyarthro twyla 531971411 Active 2017 Not Available [facility] 3 06:21:22 Joint pain 41707459 Active Not Available [facility] 3 06:21:22 Hyperglyce ren 76049206 Active Not Available [facility] 3 06:21:22 Fatigue 43026143 Active 2022 Not Available [facility] 3 06:21:22 Notes:Medical History: Depre ssion Mod ACO Obesity T2DM Problem Notes None recorded. Procedures Surgical History Date Name Laterality Status Provider Name and Address Organization Details Recorded Time 3 Wound Care-Podiatry completed Stefano Jackson RN [facility] 08/08/2023 15:53:44 3 Wound Care-Podiatry completed Carol Franco RN [facility] 08/01/2023 15:20:50 3 Wound Care-Podiatry completed Carol Franco RN [facility] 07/25/2023 16:47:31 0 Most Recent Bone Density completed Not Available [facility] 01/18/2023 04:42:48 Cyst Removal completed Not Available [facility] 01/18/2023 04:42:50 Unlisted procedure stomach completed Not Available [facility] 01/18/2023 04:42:50 Imaging Results None recorded. Procedure Notes None recorded. Medical Equipment None Reported. Allergies Allergen ID Allergen Name Allergen Category Reaction Reaction Severity Criticality Documentation Date Start Date Code Code System Note Provider Name and Address Organization Details Recorded Time 8539 Substance with sulfonami de structure and antibacte rial mechanism of action (substanc e) medicatio n other Not available Not available 01/18/2023 95872 8003 SNOMED chest press ure Not Available [facility] 3 05:05:21 8540 Product containin g penicilli n (product) medicatio n other Not available Not available 01/18/2023 76462 8001 SNOMED chest press ure Not Available [facility] 3 05:05:22 Medications Name Sig Start Date Stop Date Status Note LastModified by Organization Details LastModified Time methocarb jeffrey 500 mg tablet TK 1 T PO BID active Not Available Not Available No t Available metformin 500 mg tablet TAKE 1 TABLET BY MOUTH TWICE DAILY 01/04 completed stopped at visit 01/04/[address] Fraser Not Available Not Available Not Available prednison e 10 mg tablet Take 1 tablet every day by oral route. 10/18 completed Not Available Not Available Not Available tizanidin e 2 mg tablet take one tablet tid 09/18 completed Not Available Not Available Not Available tizanidin e 4 mg tablet active Not Available Not Available Not Available citalopra m 10 mg tablet TAKE 1 TABLET BY MOUTH EVERY DAY 01/21 completed Not Available Not Available Not Available meloxicam 15 mg tablet Take 1 tablet every day by oral route. active Not Available Not Available No t Available prednison e 5 mg tablet TAKE 1 TO 2 TABLETS BY MOUTH EVERY DAY active Not Available Not Available No t Available sulfasala zine 500 mg tablet,de layed release TAKE 3 TABLETS BY MOUTH TWICE DAILY active Not Available Not Available No t Available tramadol 50 mg tablet TAKE 1 TABLET BY MOUTH THREE TIMES DAILY active Not Available Not Available No t Available meloxicam 7.5 mg tablet 05/29 completed Not Available Not Available Not Available alprazola m 0.25 mg tablet Take 1 tablet 3 times a day by oral route as needed. active Not Available Not Available No t Available citalopra m 20 mg tablet TAKE 1 TABLET BY MOUTH DAILY 2023 active Not Available Not Available Not Avai lable methotrex ate sodium 2.5 mg tablet TAKE 4 TABLETS BY MOUTH IN THE MORNING AND IN THE EVENING ONE DAY A WEEK active Not Available Not Available No t Available prednison e 2.5 mg tablet TAKE 3 TABLETS BY MOUTH DAILY 10/18 completed Not Available Not Available Not Available folic acid 1 mg tablet active Not Available Not Available Not Available insulin syringe U-100 with needle 1 mL 31 gauge x 04/04 USE DIRECTED WEEKLY 08/29 completed Not Available Not Available Not Available hydroxych loroquine 200 mg tablet active Not Available Not Available Not Available zolpidem 10 mg tablet Take 1 tablet every day by oral route. 05/29 completed Not Available Not Available Not Available methylpre dnisolone 4 mg tablets in a dose pack TAKE BY MOUTH DIRECTED PER PACKAGE INSTRUCT IONS 05/03 /2021 completed Not Available Not Available Not Available albuterol sulfate HFA 90 mcg/actua tion aerosol inhaler USE 2 INHALATI ONS BY MOUTH EVERY 4 HOURS 2023 active Not Available Not Available Not Avai lable methotrex ate sodium (PF) 25 mg/mL injection solution 08/15 completed Not Available Not Available Not Available cyclobenz aprine 5 mg tablet TAKE 1 TO 2 TABLETS BY MOUTH EVERY NIGHT active Not Available Not Available No t Available Vitamin D 08/29 completed Not Available Not Available Not Available Tylenol 2021 active Not Available Not Available Not Avai lable Zena 2021 active Not Available Not Available Not Avai lable estradiol -norethin drone acet 0.5 mg-0.1 mg tablet TAKE 1 TABLET BY MOUTH DAILY 08/01 completed Not Available Not Available Not Available Centrum Silver Women 2021 active Not Available Not Available Not Avai lable Humira(CF ) Pen 40 mg/0.4 mL subcutane ous kit 08/15 completed Not Available Not Available Not Available cannabidi ol (CBD) oral edible Take by oral route. 05/14 completed Not Available Not Available Not Available Vitals Date Recorded Body height Body mass index (BMI) Body weight Body temperature Heart rate Systolic blood pressure Diastolic blood pressure Provider Name and Address Organization Details Last Updated DateTime 3 167.64 cm 36.6 kg/m2 825308. 47 g 97.3 [degF] 71 /min 150 mm[Hg] 72 mm[Hg] MARCELINO Hernandes [facility] 3 14:32:32 Date Recorded Body height Oxygen saturation Oxygen saturation in Arterial blood by Pulse oximetry Heart rate Systolic blood pressure Diastolic blood pressure Provider Name and Address Organization Details Last Updated DateTime 3 167.64 cm 95 % 95 % 105 /min 167 mm[Hg] 88 mm[Hg] Carol Franco RN [facility] [employer] [facility] 3 16:44:43 Date Recorded Body height Body temperature Respiratory rate Heart rate Oxygen saturation Oxygen saturation in Arterial blood by Pulse oximetry Systolic blood pressure Diastolic blood pressure Provider Name and Address Organization Details Last Updated DateTime 3 167.64 cm 98.5 [degF] 18 /min 83 /min 95 % 95 % 160 mm[Hg] 68 mm[Hg] Carol Franco RN [facility] [employer] [facility] 3 15:18:11 Date Recorded Body height Oxygen saturation Oxygen saturation in Arterial blood by Pulse oximetry Heart rate Body temperature Respiratory rate Systolic blood pressure Diastolic blood pressure Provider Name and Address Organization Details Last Updated DateTime 3 167.64 cm 95 % 95 % 104 /min 98.1 [degF] 18 /min 149 mm[Hg] 86 mm[Hg] Carol Franco RN [facility] [employer] [facility] 3 15:40:48 Date Recorded Body height Body mass index (BMI) Body weight Body temperature Heart rate Systolic blood pressure Diastolic blood pressure Provider Name and Address Organization Details Last Updated DateTime 3 167.64 cm 37.1 kg/m2 628223. 25 g 98.5 [degF] 83 /min 142 mm[Hg] 80 mm[Hg] Kirsten quevedo RN [facility] [employer] [facility] 3 14:30:23 Social History Question Answer Notes LastModified by Organization Details LastModified Time Tobacco Smoking Status Former Smoker Not Available [facility] 01/18/2023 04:42:15 Do You Have An Advance Directive? Yes Patient Wants To Update, So ACP Information Provided. MIGRATION.307 [id number] Information not available 01/18/2023 What Is Your Level Of Alcohol Consumption? None MIGRATION.390 [id number] Information not available 01/18/2023 Do You Wear A Helmet When Biking? No Bike MIGRATION.848 [id number] Information not available 01/18/2023 Are You Blind Or Do You Have Difficulty Seeing? No MIGRATION.054 [id number] Information not available 01/18/2023 What Is Your Level Of Caffeine Consumption? None MIGRATION.801 [id number] Information not available 01/18/2023 How Much Tobacco Do You Chew? None MIGRATION.156 [id number] Information not available 01/18/2023 In The 14 Days Before Symptom Onset, Have You Had Close Contact With A Laboratory-conf irmed COVID-19 While That Case Was Ill? No MIGRATION.353 [id number] Information not available 01/18/2023 In The 14 Days Before Symptom Onset, Have You Had Close Contact With A Person Who Is Under Investigation For COVID-19 While That Person Was Ill? No MIGRATION.374 [id number] Information not available 01/18/2023 Are You Deaf Or Do You Have Serious Difficulty Hearing? No MIGRATION.961 [id number] Information not available 01/18/2023 What Type Of Diet Are You Following? REGULAR MIGRATION.482 [id number] Information not available 01/18/2023 Do You Or Have You Ever Used E-cigarettes Or Vape? Never Used Electronic Cigarettes MIGRATION.725 [id number] Information not available 01/18/2023 What Is The Highest Grade Or Level Of School You Have Completed Or The Highest Degree You Have Received? 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 No MIGRATION.647 1873611 Information not available 01/18/2023 What Is The Fluoride Status Of Your Home? Unknown MIGRATION.572 [id number] Information not available 01/18/2023 Are There Any Guns Present In Your Home? Yes MIGRATION.979 [id number] Information not available 01/18/2023 Do You Use Insect Repellent Routinely? No MIGRATION.971 [id number] Information not available 01/18/2023 Where Do You Live? SingleLevelHouse With Basement MIGRATION.668 [id number] Information not available 01/18/2023 What Was The Date Of Your Most Recent Tobacco Screening? 10/18/2023 [email or web address] Information not available 10/18/2023 Do You Have Any Pets? Yes MIGRATION.425 [id number] Information not available 01/18/2023 What Is Your Relationship Status? Single MIGRATION.027 [id number] Information not available 01/18/2023 Do You Use Your Seat Belt Or Car Seat Routinely? Yes MIGRATION.500 [id number] Information not available 01/18/2023 Do You Have Smoke And Carbon Monoxide Detectors In Your Home? Yes MIGRATION.861 6559210 Information not available 01/18/2023 Are You Passively Exposed To Smoke? No MIGRATION.454 [id number] Information not available 01/18/2023 Do You Or Have You Ever Used Smokeless Tobacco? Never Used Smokeless Tobacco MIGRATION.085 [id number] Information not available 01/18/2023 Are There Any Smokers In Your House? No MIGRATION.356 [id number] Information not available 01/18/2023 How Much Tobacco Do You Smoke? No MIGRATION.439 8352889 Information not available 01/18/2023 Do You Feel Stressed (tense, Restless, Nervous, Or Anxious, Or Unable To Sleep At Night)? [id number] Insurance Issues MIGRATION.973 [id number] Information not available 01/18/2023 Do You Use Sunscreen Routinely? No MIGRATION.113 5282014 Information not available 01/18/2023 Has Tobacco Cessation Counseling Been Provided? No MIGRATION.155 7415502 Information not available 01/18/2023 Have You Recently Traveled Abroad? No MIGRATION.532 2490872 Information not available 01/18/2023 Do You Have Any Dietary Restrictions? No MIGRATION.900 5033984 Information not available 01/18/2023 Do You Or Have You Ever Used Any Other Forms Of Tobacco Or Nicotine? No MIGRATION.801 [id number] Information not available 01/18/2023 Sex: Female Functional Status Question Answer Note LastModified by Organizat ion Details LastModified Time Do you have difficulty walking or climbing stairs? Yes MIGRATION.93581 81370 Information not available 01/18/2023 Do you have transportation difficulties? Yes MIGRATION.24818 51363 Information not available 01/18/2023 Are you able to walk? YESASSIST walker/cane MIGRATION.64298 55833 Information not available 01/18/2023 Do you have difficulty doing errands alone? Yes MIGRATION.90214 40072 Information not available 01/18/2023 Are you able to care for yourself? Yes uses hover round MIGRATION.28308 22526 Information not available 01/18/2023 Do you have difficulty dressing or bathing? Yes sometimes MIGRATION.50613 06724 Information not available 01/18/2023 What is your exercise level? None MIGRATION.90221 05708 Information not available 01/18/2023 Mental Status Question Answer Note LastModified by Organizat ion Details LastModified Time Do you have difficulty concentrating, remembering or making decisions? No MIGRATION.[id number] 6 Information not available 01/18/2023 Family History Relationship Description Onset Age of this Age Resolved Age Notes LastModified by Organization Details LastModified Time Father Chronic obstructive pulmonary disease MIGRATION.885 [id number] Not available 01/18/2023 04:42:57 Mother Acquired scoliosis MIGRATION.318 [id number] Not available 01/18/2023 04:42:57 Mother Essential hypertension MIGRATION.026 [id number] Not available 01/18/2023 04:42:57 Mother Rheumatoid arthritis MIGRATION.802 [id number] Not available 01/18/2023 04:42:57 Medical History Condition Response NERVE DISEASE N BLINDNESS N RHEUMATIC FEVER N KIDNEY STONES N BLADDER PROBLEMS N MRSA N OTHER # 1 Y POLIO N LUNG DISEASE/DISORDER N COPD N RADIATION / CHEMOTHERAPY N Other # 2 Y BLOOD DISEASES N SURGERY N EAR OR HEARING PROBLEMS N MUMPS N BOWEL PROBLEMS Y DEPRESSION (INCLUDING POST ) Y STROKE/TIA N ULCERS N BENIGN PROSTATIC HYPERPLASIA N MEASLES N MYOCARDIAL INFARCTION N OBESITY Y GERD/NAUSEA N ANEURYSM N URINARY/BLADDER/KIDNEY PROBLEMS N CORONARY ARTERY DISEASE (CAD) N ADDICTION CONCERNS Y ENDOMETRIOSIS N Impotence N USE OF BLOOD THINNERS N SKIN PROBLEMS N GASTROINTESTINAL DISORDER N PERIPHERAL VASCULAR DISEASE N MUSCLE,JOINT OR BONE PROBLEMS N GASTROINTESTINAL BLEEDING N BLOOD CLOTS N ASTHMA N CATARACTS N ERECTILE DYSFUNCTION N VARICOSITIES N GI PROBLEMS N Low Testosterone N INFERTILITY N AIDS/HIV N CHEMOTHERAPY / RADIATION N LIVER DISEASE N MALE HYPOGONADISM N HYPERTENSION N Deficiency N ANXIETY DISORDER Y BLOOD TRANSFUSION N ANEMIA/BLOOD DISORDER N CHRONIC EAR INFECTIONS N BRONCHITIS N TUBERCULOSIS N GLAUCOMA N FOOT PROBLEM N DIVERTICULITIS N SLEEP APNEA N CHICKENPOX N INFECTIOUS DISEASE N HEART ARRHYTHMIA N PROSTATE N INSOMNIA Y HIGH CHOLESTEROL / HYPERLIPIDEMIA N HYPERTHYROIDISM N EYE PROBLEMS N NEUROLOGICAL PROBLEMS N EDEMA N CHRONIC PAIN SYNDROME N HYPOTHYROIDISM N CAROTID BLOCKAGE N CONSTIPATION N BACK / NECK PROBLEMS Y HAVE YOU BEEN HOSPITALIZED OR SEEN IN [facility] IN THE PAST YEAR ? N ATHEROSCLEROSIS N BREAST PROBLEMS N DIALYSIS N ECZEMA N OSTEOPOROSIS N ARTHRITIS N NO SIGNIFICANT PAST MEDICAL HISTORY Y APPENDICITIS N DIABETES, TYPE N BAD TEETH N ENT N HEARTBURN / REFLUX N AFIB N AUTISM SPECTRUM DISORDER (ASD) N HEPATITIS / LIVER DISEASE N GOUT N SLEEP DISORDER N ALZHEIMER'S DISEASE N Brain Problems N HERPES N DEMENTIA N HEADACHES/MIGRAINES N SEIZURES/EPILEPSY N VASCULAR DISEASE N PACEMAKER N Blood Disorder N DIZZINESS Y HEART DISEASE/HEART PROBLEMS N KIDNEY DISEASE N MULTIPLE SCLEROSIS N CARDIAC ARRHYTHMIA N CANCER: SPECIFY N ATRIAL FIBRILLATION N Gall Stones N PULMONARY EMBOLISM N AUTOIMMUNE DISEASE N Gynecological History Statement/Question Response Date of Last Pap Date of Last Mammogram 12/16/2021 Date of Last Colonoscopy Most Recent Bone Density 11/06/2020 Obstetrics History GPAL:G 0 P 0 0 0 0 Immunizations Vaccine Type Date Status Note Provider Nam e and Address Organization Details Recorded Time Influenza, split virus, quadrivalent, preservative 3 completed Kirsten Regan RN null, [place] [facility] 10/18/2023 14:28:22 COVID-19, mRNA, LNP-S, PF, 30 mcg/0.3 mL dose 1 completed Not Available [facility] 07/06/2023 06:21:22 COVID-19, mRNA, LNP-S, PF, 30 mcg/0.3 mL dose 1 completed Not Available [facility] 07/06/2023 06:21:22 COVID-19, mRNA, LNP-S, PF, 30 mcg/0.3 mL dose 1 completed Not Available [facility] 07/06/2023 06:21:22 pneumococcal polysaccharide PPV23 2 completed Not Available [facility] 07/06/2023 06:21:22 zoster live 8 completed Not Available [facility] 07/06/2023 06:21:22 Influenza, high-dose, quadrivalent, PF 0 completed Not Available [facility] 07/06/2023 06:21:22 Influenza, high-dose, trivalent, PF 8 completed Not Available [facility] 07/06/2023 06:21:22 Influenza, split virus, quadrivalent, PF 8 completed Not Available [facility] 07/06/2023 06:21:22 Influenza, split virus, quadrivalent, PF 5 completed Not Available [facility] 07/06/2023 06:21:22 Pneumococcal conjugate PCV 13 8 completed Not Available [facility] 07/06/2023 06:21:22 Influenza, high-dose, trivalent, PF 6 completed Not Available [facility] 07/06/2023 06:21:22 Influenza, split virus, trivalent, preservative 4 completed Not Available [facility] 07/06/2023 06:21:22 Influenza, split virus, trivalent, PF 3 completed Not Available [facility] 07/06/2023 06:21:22 Past Encounters Encounter ID Performer Location Encounter Start Date Encounter Closed Date Diagnosis/Indication Diagnosis SNOMED-CT Code Diagnosis ICD10 Code Diagnosis Note [id number] [facility] [address] [address] 03/22/2021 00:00:00 03/29/2021 20:30:03 [id number] [facility] [address] [address] 01/21/2022 00:00:00 02/13/2022 17:01:57 [id number] [facility] [address] [address] 08/15/2022 00:00:00 08/17/2022 08:33:25 [id number] [facility] [address] [place] [address] 1 09/12/2022 00:00:00 09/13/2022 19:53:27 [id number] [facility] [address] [place] [address] 1 01/04/2023 00:00:00 01/04/2023 22:27:27 [id number] Nir Fraser MD [facility] [address] [address] 07/05/2023 11:01:39 07/05/2023 12:40:17 Type 2 diabetes mellitus without complication 558765772 E11.9 Screening for cardiovascular system disease 010960862 Z13.6 Tear of skin 136172151 T 14.8XXA [id number] Nir Fraser MD [facility] [address] [place] [address] 07/19/2023 14:20:23 07/19/2023 15:36:03 Tear of skin 195674965 T14.8XXA Visual disturbance 31452 001 H53.9 Type 2 tara betes mellitus without complication 611205390 E11.9 [id number] ANA MARÍA Espinoza [facility] [address] [place] [address] 07/25/2023 15:39:56 07/26/2023 12:46:28 Open wound of left forearm 9365582734 1461099 S51.802A Abrasion to L forearm. Recommende d betadine dressings daily. Instructed patient to avoid neosporin, avoid peroxide at home. Wash gently with soap and water and pat dry thoroughly before replacing dressings each day. Will f/u in one week. Contact the office sooner if concerns arise. [id number] ANA MARÍA [facility]za [facility] [address] [place] [address] 08/01/2023 15:12:02 08/01/2023 18:42:14 Open wound of left forearm 5313294872 [id number] S51.802A Abrasion to L forearm improved compared to last week. Recommende d betadine dressings only once daily. Wash gently with soap and water and pat dry thoroughly before replacing dressings each day. Will f/u in one week. Contact the office sooner if concerns arise. [id number] A[facility]za [facility] [address] [place] [address] 08/08/2023 15:36:43 08/09/2023 12:22:09 Open wound of left forearm [id number] S51.802A Tiny pinpoint opening, otherwise wound fully epithelial ized. recommend betadine cleansing daily and leave wound open to air, anticipate healing by next week. Contact the office if concerns arise. [id number] Nir Fraser MD [facility] [address] [facility], [address] [place] [address] 10/18/2023 14:18:19 10/18/2023 15:17:36 Inflammatory polyarthropathy 922850875 M06.4 Asthma-chr onic obstructive pulmonary disease overlap syndrome [id number] J44.9 Depressive disorder 3548 9007 F32.9 Type 2 tara betes mellitus without complication [id number] E11.9 Health Concerns Section Related Observation LastModified by Organization Detai ls LastModified Time None Recorded Concern Status LastModified by Organization Details LastModified Time None Recorded Advance Directives Directive Y: Patient wants to update, so ACP information provided. Payers Encounter Date Sequence Insurance Name Policy Number Policy Keating Covered Member ID Keating Member ID Guarantor Name 07/19/2023 1 [facility] MEDICARE SOLUTIONS MEDICARE COMPLETE PLAN 1 (MEDICARE REPLACEMENT HMO) [id number] Jyashree L Gallo [id number] Jayshree L Gallo 07/25/2023 1 [facility] MEDICARE SOLUTIONS MEDICARE COMPLETE PLAN 1 (MEDICARE REPLACEMENT HMO) [id number] Jayshree L Gallo [id number] Jayshree L Gallo 08/01/2023 1 [facility] MEDICARE SOLUTIONS - MEDICARE COMPLETE PLAN 1 (MEDICARE REPLACEMENT HMO) [id number] Jayshree L Gallo [id number] Jayshree L Gallo 08/08/2023 1 [facility] MEDICARE SOLUTIONS - MEDICARE COMPLETE PLAN 1 (MEDICARE REPLACEMENT HMO) [id number] Jayshree L Gallo [id number] Jayshree L Gallo 10/18/2023 1 [facility] MEDICARE SOLUTIONS - MEDICARE COMPLETE PLAN 1 (MEDICARE REPLACEMENT HMO) [id number] Jayshree L Gallo [id number] Jayshree L Gallo Notes Date Note Type Note Provider Name and Address Organization Details Recorded Time 3 text/html slow healing from wound she needs to see the eye doctor having some fuzzy vision A1c came back 7 point Nir Fraser MD [address], [facility] [address], [place], [address], [facility] [employer] 07/23/2023 15:00:05 3 text/html Patient presents to wound clinic c/o L forearm wound. STates she fell and had a scrape on this arm in May, and since then, wound has been resistant to healing. Has tried neosporin and applies peroxide to the wound 1-2 times daily. Denies drainage. Reports wound is smaller now compared to last month. No fevers. ANA MARÍA Espinoza [address], [place], [address], [employer] [facility] 07/25/2023 18:05:39 3 text/html Patient presents to wound clinic for follow-up of L forearm wound. Has been doing a betadine dressing 3x/day. Denies drainage. Reports wound is smaller now compared to last week. No fevers. ANA MARÍA Espinoza [address], [place], [address], [employer] [facility] [employer] [facility] 08/01/2023 16:32:02 3 text/html Patient presents to wound clinic for follow-up of L forearm wound. Has been doing a betadine dressing daily. Denies drainage. Reports wound is smaller now compared to last week. No fevers. ANA MARÍA Espinoza [address], [place], [address], [employer] 08/29/2023 20:20:24 3 text/html Following with RheumatologyFebruary A1c 6.2Anxiety highBreathing has been doing mireya Fraser MD [address], [place], [address], [employer] [facility] [employer] 10/28/2023 14:17:08 OBGyn Episode No OBEpisode recorded.
--- OUTSIDE RECORDS SUMMARY | 2025-03-14 10:11 | XMS_ITS | CONTINUITY OF CARE DOCUMENT ---
Author Name karan russo Address Unknown Organization [facility] Address [address] [facility] [address] [place] [address] Phone [phone] Care Team Providers Care Potato Grader Name Role Phone Walt APONTE, Chepe Unavailable [phone] Walt APONTE, Chepe Unavailable AMANUEL APONTE, KARTHIKEYAN Ruffin Unavailable INSURANCE PROVIDERS Payer name Policy type / Coverage type [place] red libertarian ID UHC MEDICARE COMPLETE O Other [id number]
--- OUTSIDE RECORDS SUMMARY | 2025-03-14 10:11 | XMS_ITS | Continuity of Care Document ---
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 [address] [facility] , [address], [place], [address], [place]. tel:[phone] Family History Family Member Type Diagnosis Age At Onset No Information Payers Payer name Insurance type Covered republican ID Authoriza tion(s) No Information Social History Type Description Quantity Date Captured Comments Sex Female Smoking Status No Information Chief Complaint And Reason For Visit No Information Reason For Referral Reason For Referral No Information History Of Present Illness Encounter Date Complaint History Of Prese nt Illness No Information Functional Status Date Functional Assessmen t No Information Instructions Date Instruction Additional Infor mation No Information Assessments Type Assessment Date No Information Patient Care Teams Name Effective Dates (start - stop) Status Members No Information
== END 2025-03-14 09:52 | disposition home or self-care (01) ==
LOC: ANHIMG 09:55
PROVIDERS: PCP Internal Medicine; Visit Provider Internal Medicine
DX: Z12.31 Encounter for screening mammogram for malignant neoplasm of breast (principal)
CPT/HCPCS: 77063; 77067